=== PATIENT | male | born 1950 | race Caucasian/White ===

== ENCOUNTER 2018-04-26 10:15 | Inpatient (IN) | payer MEDICARE ==
[~2018-04-26] VITALS: Ht 190.5 cm; Wt 127.9 kg
[2018-04-26 10:25] VITALS: BP 142/85
[2018-04-26 11:17] LABS: APPEARANCE,URINE CLEAR; BILIRUBIN, URINE NEGATIVE (NEGATIVE); GLUCOSE, URINE (UA) NEGATIVE (NEGATIVE); KETONES,URINE NEGATIVE (NEGATIVE); LEUKOCYTE ESTERASE ,URINE 1+ (NEGATIVE); NITRITE,URINE NEGATIVE (NEGATIVE); PH,URINE 6.5 (4.5-8.0); PROTEIN,URINE NEGATIVE (NEGATIVE); UROBILINOGEN,URINE 4 MG/DL (0.0-1.0)
[2018-04-26 11:26] LABS: HEMATOCRIT 36.3 % (42.0-52.0); HEMOGLOBIN 12.4 G/DL (14.2-18.0); MEAN CORPUSCULAR VOLUME 99 FL (80-99); PLATELET COUNT 72 K/UL (150-450); RED BLOOD COUNT 3.68 M/UL (4.70-6.10); RED CELL DISTRIBUTION WIDTH 13.2 % (11.6-14.8); WHITE BLOOD COUNT 7.9 K/UL (4.8-10.8)
[2018-04-26 11:27] LABS: COLOR,URINE YELLOW
[2018-04-26 11:40] LABS: ANION GAP 11 mmol/L (5-15); BLOOD UREA NITROGEN 16 mg/dL (7-18); CALCIUM 8.8 MG/DL (8.5-10.1); CARBON DIOXIDE 23 MMOL/L (21-32); CHLORIDE 109 MMOL/L (98-107); CREATININE 0.8 MG/DL (0.55-1.30); POTASSIUM 3.2 MMOL/L (3.5-5.1); SODIUM 142 MMOL/L (136-145)
--- NOTE | 2018-04-26 11:41 | Diagnostic Imaging Report ---
Indication: Seizure Technique: Contiguous 5 mm thick transaxial imaging of the head obtained in a Siemens Sensation [address] scanner. Soft tissue and bone windows generated. Automatic Exposure Control was utilized. Total Dose length Product (DLP): 1608.[address] Dose Index Volume (CTDIvol): 70.38 mGy Comparison: none Findings: There is mild prominence of the ventricles, basal cisterns, and cerebral sulci consistent with atrophy. Mild, nonspecific, white matter hypoattenuation is noted throughout the brain consistent with chronic small vessel disease. There is no midline shift, edema, acute hemorrhage, mass effect, or abnormal extra-axial fluid collections. Bones and extra osseous soft tissues are unremarkable. Impression: No acute intracranial bleed, mass effect or edema. Mild atrophy of the brain. Nonspecific white matter hypoattenuation probably due to chronic small vessel disease. The CT scanner at [facility] is accredited by the [employer] and the scans are performed using dose optimization techniques as appropriate to a performed exam including Automatic Exposure control.
--- NOTE | 2018-04-26 11:43 | Diagnostic Imaging Report ---
Indication: Chest pain Comparison: None A single view chest radiograph was obtained. Findings: No definite infiltrate or pulmonary vascular congestion identified. The heart is enlarged. The aorta is mildly enlarged consistent with atherosclerotic vascular disease. The bones are osteopenic. Impression: No acute disease
[2018-04-26 11:52] LABS: ALANINE AMINOTRANSFERASE 25 U/L (12-78); ALBUMIN 2.8 G/DL (3.4-5.0); ALBUMIN/GLOBULIN RATIO 0.8 (1.0-2.7); ALKALINE PHOSPHATASE 215 U/L (46-116); ASPARTATE AMINO TRANSFERASE 100 U/L (15-37); BILIRUBIN,TOTAL 4.6 MG/DL (0.2-1.0)
[2018-04-26 11:53] LABS: BILIRUBIN,DIRECT 1.2 MG/DL (0.0-0.3)
[2018-04-26 12:23] LABS: CREATINE KINASE 389 U/L (26-308)
[2018-04-26 12:48] LABS: AMMONIA 60 umol/L (11-32)
[2018-04-26] MEDS ORDERED: NAPROXEN250 MG ORAL (12:59)
[2018-04-26] MEDS: Aspirin Baby 81mg ORAL ONE ×2 (13:45→15:15)
[2018-04-26] MEDS: Lactulose 20gm/30ml UDC ORAL ONE ×2 (13:45→15:15)
[2018-04-26] MEDS ORDERED: Nitroglycerin Subl 0.4mg tab SL PRN (13:45)
[2018-04-26] MEDS ORDERED: Metoclopramide 10mg/2ml Inj IVP PRN (13:45)
[2018-04-26] MEDS ORDERED: Mylanta II UD 30ml ORAL PRN (13:45)
[2018-04-26] MEDS ORDERED: Promethazine HCl 25 MG in NS 55 ML IV PRN (13:45)
[2018-04-26] MEDS ORDERED: Morphine Sulfate 2mg/ml Inj IVP PRN (13:45)
[2018-04-26] MEDS ORDERED: LORazepam Inj 2mg/ml 1ml IV PRN (13:45)
[2018-04-26] MEDS ORDERED: Promethazine HCl 12.5 MG in NS 55 ML IV PRN (13:45)
--- NOTE | 2018-04-26 14:02 | Emergency Room Report ---
History of Present Illness General Chief Complaint: Altered Mental Status Source: Patient, EMS Present Illness HPI 67M who is confused. The history is quite limited b/c the patient is truly confused and the metal rivet machine operator with him says he only knows him for two days. That his /friends know him but not him. The patient and metal rivet machine operator agree that the patient flew here by himself from [place]. Pt. says he "is in remission from cancer" but he cannot be specific. States he does not take any meds and not supposed to be on meds. He was treated at [place]. The patient is having difficulty telling me details. He is awake, oriented x2 but poor details. 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 Review of Systems Constitutional: Reports: see HPI Eye: Reports: see HPI Respiratory: Reports: no symptoms Cardiovascular: Reports: no symptoms Gastrointestinal: Reports: no symptoms Genitourinary: Reports: frequency Musculoskeletal: Reports: no symptoms Skin: Reports: change in color Psychiatric: Reports: no symptoms Neurological: Reports: no symptoms All Other Systems: limited Physical Exam Vital Signs Date Time Temp Pulse Resp B/P (MAP) Pulse Ox O2 Delivery O2 Flow Rate FiO2 04/26/18 10:05 98.4 104 16 163/95 99 Room Air 98.4 Sp02 EP Interpretation: reviewed, normal General Appearance: normal inspection, well appearing, no apparent distress, alert, GCS 15, non-toxic Head: normocephalic, atraumatic Eyes: bilateral eye normal inspection, bilateral eye PERRL, bilateral eye EOMI , bilateral eye scleral icterus ENT: normal ENT inspection, hearing grossly normal, normal pharynx, no angioedema, normal voice, moist mucus membranes Neck: normal inspection, full range of motion, supple, no meningismus, no bony tend Respiratory: normal inspection, lungs clear, normal breath sounds, no rhonchi, no respiratory distress, no retraction, no accessory muscle use, no wheezing Cardiovascular #1: normal inspection, regular rate, rhythm, no edema Gastrointestinal: normal inspection, normal bowel sounds, non tender, soft, no mass, non-distended Musculoskeletal: normal range of motion, swelling, other - 4+ leg edema Neurologic: normal inspection, alert, responsive, motor strength/tone normal, abnormal gait, other - can have a coherent conversation but patient has to work hard to understand me and has word searching and cannot give details Psychiatric: normal inspection, judgement/insight normal, memory normal Suicide Risk Assessment: Suicidal Ideation: No Had intent to initiate attempt: No Pt's plan for suicide attempt: No Has means to complete attempt: No Skin: normal inspection, normal color, no rash, warm/dry Medical Decision Making Diagnostic Impression: Primary Impression: Hepatic encephalopathy Additional Impression: ACS (acute coronary syndrome) ER Course This patient appears to have been typical patient until very recently (1-3 days. ) He has great difficulty recalling things, has to work hard to understand/ discuss with me. He says he is in remission from cancer but cannot be specific. He denies needing/taking any meds. He has some ataxia, peripheral edema, jaundice. No ports. labs c/w hepatic encephalopathy also + troponin. no complaint of cp/sob/diaph aspirin ordered. not tachy no b-block ordered EKG nonacute, EKG Diagnostic Results EKG Time: 11:00 Rate: normal Rhythm: NSR ST Segments: no acute changes ASA given to the pt in ED: Yes Rhythm Strip Diag. Results Rhythm Strip Time: 14:00 EP Interpretation: yes Rate: 86 Rhythm: NSR Chest X-Ray Diagnostic Results Chest X-Ray Diagnostic Results : Chest X-Ray Ordered: Yes # of Views/Limited/Complete: 1 View Indication: Other Interpretation: no consolidation, no effusion, no pneumothorax, other - rotated CT/MRI/US Diagnostic Results CT/MRI/US Diagnostic Results : Imaging Test Ordered: ct head: no acute findings Last Vital Signs Date Time Temp Pulse Resp B/P (MAP) Pulse Ox O2 Delivery O2 Flow Rate FiO2 04/26/18 10:25 98.4 94 15 142/85 98 Room Air 98.4 Status: unchanged Disposition: ADMITTED INPATIENT Referrals: NOT CHOSEN JOSE LUIS/,REFERRING (PCP) Andrés Fuentes M.D. Apr 26, 2018 14:02
[2018-04-26 14:09] VITALS: BP 144/77
--- NOTE | 2018-04-26 14:32 | Consultation ---
History of Present Illness General Date patient seen: Apr 26, 2018 Chief Complaint: Altered Mental Status Present Illness HPI 67 year old male with hx of metastatic melanoma apparently receiving treatment at [facility] in [place], was brought for altered level of consciousness. He had elevated bilirubin and mild coagulopathy, was diagnosed to have hepatic encephalopathy and admitted for further treatment. Allergies: Coded Allergies: No Known Allergies (Unverified , 04/26/18) Medication History Scheduled Naproxen* (Naprosyn*), Unknown Dose ORAL TWICE A DAY, (Reported) Patient History Healthcare decision maker Resuscitation status Advanced Directive on File Past Medical/Surgical History Past Medical/Surgical History: (1) Metastatic melanoma (2) Liver disease Review of Systems All Other Systems: negative except mentioned in HPI Physical Exam General Appearance: WD/WN Lines, tubes and drains: peripheral HEENT: normocephalic, atraumatic Neck: non-tender, normal alignment Respiratory/Chest: chest wall non-tender, lungs clear Breasts: no masses Cardiovascular/Chest: normal peripheral pulses Abdomen: normal bowel sounds, non tender Genitourinary/Rectal: normal genital exam, normal rectal exam Extremities: normal range of motion Last 24 Hour Vital Signs Date Time Temp Pulse Resp B/P (MAP) Pulse Ox O2 Delivery O2 Flow Rate FiO2 04/26/18 14:27 98.4 88 16 144/77 98 Room Air 98.4 04/26/18 14:09 98.4 88 16 144/77 98 Room Air 98.4 04/26/18 10:25 98.4 94 15 142/85 98 Room Air 98.4 04/26/18 10:05 98.4 104 16 163/95 99 Room Air 98.4 Laboratory Tests Test 04/26/18 10:50 White Blood Count 7.9 K/UL (4.8-10.8) Red Blood Count 3.68 M/UL (4.70-6.10) L Hemoglobin 12.4 G/DL (14.2-18.0) L Hematocrit 36.3 % (42.0-52.0) L Mean Corpuscular Volume 99 FL (80-99) Mean Corpuscular Hemoglobin 33.8 PG (27.0-31.0) H Mean Corpuscular Hemoglobin Concent 34.3 G/DL (32.0-36.0) Red Cell Distribution Width 13.2 % (11.6-14.8) Platelet Count 72 K/UL (150-450) L Mean Platelet Volume 8.8 FL (6.5-10.1) Neutrophils (%) (Auto) % (45.0-75.0) Lymphocytes (%) (Auto) % (20.0-45.0) Monocytes (%) (Auto) % (1.0-10.0) Eosinophils (%) (Auto) % (0.0-3.0) Basophils (%) (Auto) % (0.0-2.0) Differential Total Cells Counted 100 Neutrophils % (Manual) 81 % (45-75) H Lymphocytes % (Manual) 9 % (20-45) L Monocytes % (Manual) 8 % (1-10) Eosinophils % (Manual) 2 % (0-3) Basophils % (Manual) 0 % (0-2) Band Neutrophils 0 % (0-8) Platelet Estimate Decreased L Platelet Morphology Normal Red Blood Cell Morphology Normal Urine Color Yellow Urine Appearance Clear Urine pH 6.5 (4.5-8.0) Urine Specific [place] 1.010 (1.005-1.035) Urine Protein Negative (NEGATIVE) Urine Glucose (UA) Negative (NEGATIVE) Urine Ketones Negative (NEGATIVE) Urine Blood Negative (NEGATIVE) Urine Nitrite Negative (NEGATIVE) Urine Bilirubin Negative (NEGATIVE) Urine Urobilinogen 4 MG/DL (0.0-1.0) H Urine Leukocyte Esterase 1+ (NEGATIVE) H Urine RBC 0-2 /HPF (0 - 0) H Urine WBC 2-4 /HPF (0 - 0) Urine Squamous Epithelial Cells Occasional /LPF Urine Bacteria Occasional /HPF (NONE) Sodium Level 142 MMOL/L (136-145) Potassium Level 3.2 MMOL/L (3.5-5.1) L Chloride Level 109 MMOL/L (98-107) H Carbon Dioxide Level 23 MMOL/L (21-32) Anion Gap 11 mmol/L (5-15) Blood Urea Nitrogen 16 mg/dL (7-18) Creatinine 0.8 MG/DL (0.55-1.30) Estimat Glomerular Filtration Rate > 60 mL/min (>60) Glucose Level 108 MG/DL (74-106) H Calcium Level 8.8 MG/DL (8.5-10.1) Total Bilirubin 4.6 MG/DL (0.2-1.0) H Direct Bilirubin 1.2 MG/DL (0.0-0.3) H Aspartate Amino Transf (AST/SGOT) 100 U/L (15-37) H Alanine Aminotransferase (ALT/SGPT) 25 U/L (12-78) Alkaline Phosphatase 215 U/L (46-116) H Ammonia 60 umol/L (11-32) H Total Creatine Kinase 389 U/L (26-308) H Troponin I 0.553 ng/mL (0.000-0.056) Total Protein 6.4 G/DL (6.4-8.2) Albumin 2.8 G/DL (3.4-5.0) L Globulin 3.6 g/dL Albumin/Globulin Ratio 0.8 (1.0-2.7) L Height (Feet): 5 Height (Inches): 8.00 Weight (Pounds): 160 Medications Current Medications Medications (Trade) Dose Ordered Sig/Elsy Route PRN Reason Start Time Stop Time Status Last Admin Dose Admin Acetaminophen (Tylenol) 650 mg Q4H PRN ORAL T>100.5 04/26/18 13:45 05/26/18 13:44 Al Hydroxide/Mg Hydroxide (Mylanta II) 30 ml Q6H PRN ORAL dyspepsia 04/26/18 13:45 05/26/18 13:44 Dextrose (Dextrose 50%) 25 ml PRN IV hypoglycemia 04/26/18 14:00 05/26/18 13:59 Dextrose (Dextrose 50%) 50 ml PRN IV hypoglycemia 04/26/18 14:00 05/26/18 13:59 Dextrose/Sodium Chloride 1,000 ml @ 75 mls/hr [id number] IV 04/26/18 13:45 05/26/18 13:44 Diphenhydramine HCl (Benadryl) 25 mg Q6H PRN ORAL Itching/Pruritis 04/26/18 13:45 05/26/18 13:44 Heparin Sodium (Porcine) (Heparin 5000 units/ml) 5,000 units EVERY 12 HOURS SUBQ 04/26/18 21:00 05/26/18 20:59 Lorazepam (Ativan 2mg/ml 1ml) 1 mg Q4H PRN IV agitation 04/26/18 13:45 05/03/18 13:44 Metoclopramide HCl (Reglan) 10 mg Q6H PRN IVP servere nausea 04/26/18 13:45 05/26/18 13:44 Morphine Sulfate (Morphine Sulfate) 2 mg Q4H PRN IVP Severe Pain (Pain Scale 7-10) 04/26/18 13:45 05/03/18 13:44 Nitroglycerin (Ntg) 0.4 mg Q5M X 3 DOSES PRN SL Prn Chest Pain 04/26/18 13:45 05/26/18 13:44 Ondansetron HCl (Zofran) 4 mg Q6H PRN IVP Nausea & Vomiting 04/26/18 13:45 05/26/18 13:44 Pantoprazole (Protonix) 40 mg DAILY IV 04/27/18 09:00 05/27/18 08:59 Polyethylene Glycol (Miralax) 17 gm HSPRN PRN ORAL Constipation 04/26/18 21:00 05/26/18 20:59 Temazepam (Restoril) 15 mg HSPRN PRN ORAL Insomnia 04/26/18 21:00 05/03/18 20:59 Assessment/Plan Problem List: (1) Hepatic encephalopathy ICD Codes: K72.90 - Hepatic failure, unspecified without coma SNOMED: 94996956 (2) Altered mental status ICD Codes: R41.82 - Altered mental status, unspecified SNOMED: 489331142 (3) Metastatic melanoma ICD Codes: C79.9 - Secondary malignant neoplasm of unspecified site SNOMED: 024919506 (4) Liver disease ICD Codes: K76.9 - Liver disease, unspecified SNOMED: 390106503 (5) Hyperbilirubinemia ICD Codes: E80.6 - Other disorders of bilirubin metabolism SNOMED: 19749278 Assessment/Plan iv fluids GI evaluation paracentesis try to obtain medical records from [facility] f/u ammonia levels check electrolytes. Mira Coates MD Apr 26, 2018 14:32
[2018-04-26] MEDS: D5 1/2NS 1,000 ML IV SCH (15:15)
--- NOTE | 2018-04-26 15:53 | GI Initial Consult Note ---
History of Present Illness General Date patient seen: Apr 26, 2018 Time patient seen: 15:46 Reason for Hospitalization: Altered Mental Status Referring physician: VISHAL NULL Reason for Consultation: ABNORMAL LFTs Present Illness HPI 67M who is confused. The history is quite limited b/c the patient is truly confused and the lead burner apprentice with him says he only knows him for two days. That his /friends know him but not him. The patient and lead burner apprentice agree that the patient flew here by himself from [place]. Pt. says he "is in remission from cancer" but he cannot be specific. States he does not take any meds and not supposed to be on meds. He was treated at [place]. The patient is having difficulty telling me details. He is awake, oriented x2 but poor details. No old EMR. GI consulted for abnormal LFTs. ROS limited, AMS. Pt seen, awake alert NAD with no active s/sx of N/V/D. Answers to questions are very vague. Unknown history of endoscopy / colonoscopy. Labs reviewed show mild anemia, elevated troponin levels, abnormal LFTs and hypoalbuminemia. 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 Review of Systems All Other Systems: limited Physical Exam Vital Signs Date Time Temp Pulse Resp B/P (MAP) Pulse Ox O2 Delivery O2 Flow Rate FiO2 04/26/18 10:05 98.4 104 16 163/95 99 Room Air 98.4 Sp02 EP Interpretation: reviewed, normal Labs Laboratory Tests Test 04/26/18 10:50 White Blood Count 7.9 K/UL (4.8-10.8) Red Blood Count 3.68 M/UL (4.70-6.10) L Hemoglobin 12.4 G/DL (14.2-18.0) L Hematocrit 36.3 % (42.0-52.0) L Mean Corpuscular Volume 99 FL (80-99) Mean Corpuscular Hemoglobin 33.8 PG (27.0-31.0) H Mean Corpuscular Hemoglobin Concent 34.3 G/DL (32.0-36.0) Red Cell Distribution Width 13.2 % (11.6-14.8) Platelet Count 72 K/UL (150-450) L Mean Platelet Volume 8.8 FL (6.5-10.1) Neutrophils (%) (Auto) % (45.0-75.0) Lymphocytes (%) (Auto) % (20.0-45.0) Monocytes (%) (Auto) % (1.0-10.0) Eosinophils (%) (Auto) % (0.0-3.0) Basophils (%) (Auto) % (0.0-2.0) Differential Total Cells Counted 100 Neutrophils % (Manual) 81 % (45-75) H Lymphocytes % (Manual) 9 % (20-45) L Monocytes % (Manual) 8 % (1-10) Eosinophils % (Manual) 2 % (0-3) Basophils % (Manual) 0 % (0-2) Band Neutrophils 0 % (0-8) Platelet Estimate Decreased L Platelet Morphology Normal Red Blood Cell Morphology Normal Urine Color Yellow Urine Appearance Clear Urine pH 6.5 (4.5-8.0) Urine Specific [place] 1.010 (1.005-1.035) Urine Protein Negative (NEGATIVE) Urine Glucose (UA) Negative (NEGATIVE) Urine Ketones Negative (NEGATIVE) Urine Blood Negative (NEGATIVE) Urine Nitrite Negative (NEGATIVE) Urine Bilirubin Negative (NEGATIVE) Urine Urobilinogen 4 MG/DL (0.0-1.0) H Urine Leukocyte Esterase 1+ (NEGATIVE) H Urine RBC 0-2 /HPF (0 - 0) H Urine WBC 2-4 /HPF (0 - 0) Urine Squamous Epithelial Cells Occasional /LPF Urine Bacteria Occasional /HPF (NONE) Sodium Level 142 MMOL/L (136-145) Potassium Level 3.2 MMOL/L (3.5-5.1) L Chloride Level 109 MMOL/L (98-107) H Carbon Dioxide Level 23 MMOL/L (21-32) Anion Gap 11 mmol/L (5-15) Blood Urea Nitrogen 16 mg/dL (7-18) Creatinine 0.8 MG/DL (0.55-1.30) Estimat Glomerular Filtration Rate > 60 mL/min (>60) Glucose Level 108 MG/DL (74-106) H Calcium Level 8.8 MG/DL (8.5-10.1) Total Bilirubin 4.6 MG/DL (0.2-1.0) H Direct Bilirubin 1.2 MG/DL (0.0-0.3) H Aspartate Amino Transf (AST/SGOT) 100 U/L (15-37) H Alanine Aminotransferase (ALT/SGPT) 25 U/L (12-78) Alkaline Phosphatase 215 U/L (46-116) H Ammonia 60 umol/L (11-32) H Total Creatine Kinase 389 U/L (26-308) H Troponin I 0.553 ng/mL (0.000-0.056) Total Protein 6.4 G/DL (6.4-8.2) Albumin 2.8 G/DL (3.4-5.0) L Globulin 3.6 g/dL Albumin/Globulin Ratio 0.8 (1.0-2.7) L General Appearance: well appearing, no apparent distress, alert, obese Head: normocephalic EENT: PERRL/EOMI, normal ENT inspection Neck: supple Respiratory: normal breath sounds, no respiratory distress Cardiovascular: normal rate Gastrointestinal: normal inspection, non tender, soft, normal bowel sounds, non -distended Rectal: deferred Genitourinary: deferred Musculoskeletal: normal inspection, back normal Neurologic: alert, responsive Skin: normal inspection, normal color, no rash, warm/dry, palpation normal, well hydrated Lymphatic: normal inspection, no adenopathy Current Medications Current Medications Medications (Trade) Dose Ordered Sig/Elsy Route PRN Reason Start Time Stop Time Status Last Admin Dose Admin Acetaminophen (Tylenol) 650 mg Q4H PRN ORAL T>100.5 04/26/18 13:45 05/26/18 13:44 Al Hydroxide/Mg Hydroxide (Mylanta II) 30 ml Q6H PRN ORAL dyspepsia 04/26/18 13:45 05/26/18 13:44 Dextrose (Dextrose 50%) 25 ml PRN IV hypoglycemia 04/26/18 14:00 05/26/18 13:59 Dextrose (Dextrose 50%) 50 ml PRN IV hypoglycemia 04/26/18 14:00 05/26/18 13:59 Dextrose/Sodium Chloride 1,000 ml @ 75 mls/hr [id number] IV 04/26/18 13:45 05/26/18 13:44 04/26/18 15:15 Diphenhydramine HCl (Benadryl) 25 mg Q6H PRN ORAL Itching/Pruritis 04/26/18 13:45 05/26/18 13:44 Heparin Sodium (Porcine) (Heparin 5000 units/ml) 5,000 units EVERY 12 HOURS SUBQ 04/26/18 21:00 05/26/18 20:59 Lorazepam (Ativan 2mg/ml 1ml) 1 mg Q4H PRN IV agitation 04/26/18 13:45 05/03/18 13:44 Metoclopramide HCl (Reglan) 10 mg Q6H PRN IVP servere nausea 04/26/18 13:45 05/26/18 13:44 Morphine Sulfate (Morphine Sulfate) 2 mg Q4H PRN IVP Severe Pain (Pain Scale 7-10) 04/26/18 13:45 05/03/18 13:44 Nitroglycerin (Ntg) 0.4 mg Q5M X 3 DOSES PRN SL Prn Chest Pain 04/26/18 13:45 05/26/18 13:44 Ondansetron HCl (Zofran) 4 mg Q6H PRN IVP Nausea & Vomiting 04/26/18 13:45 05/26/18 13:44 Pantoprazole (Protonix) 40 mg DAILY IV 04/27/18 09:00 05/27/18 08:59 Polyethylene Glycol (Miralax) 17 gm HSPRN PRN ORAL Constipation 04/26/18 21:00 05/26/18 20:59 Temazepam (Restoril) 15 mg HSPRN PRN ORAL Insomnia 04/26/18 21:00 05/03/18 20:59 GI: Plan Problems: (1) Liver disease (2) Hyperbilirubinemia (3) Hepatic encephalopathy (4) Altered mental status Plan defer GI procedures at this time given elevated troponin levels abdominal U/S anemia work up OB stool r/o GI bleed monitor H&H, prn transfusions bowel regime ppi start lactulose low dose + Xifaxan fu labs, AFP, NH3, hep panel Discussed with Dr. Pena. Thank you for this patient referral, we will follow. The patient was seen and examined at bedside and all new and available data was reviewed in the patients chart. I agree with the above findings, impression and plan. (Patient seen earlier today. Signature stamp does not reflect patient encounter time.). - MD Lucila ParraHavasu Regional Medical CenterLuhMiguel BUSINESS PERFORMANCE ADVISOR Apr 26, 2018 15:53
[2018-04-26 16:12] VITALS: BP 143/85
[2018-04-26] MEDS: Lactulose 10gm/15ml UDC ORAL SCH ×2 (17:27→17:28)
--- NOTE | 2018-04-26 18:18 | History & Physical ---
History and Physical History & Physicial Dictated for [facility]. [id number]. Carlos Alberto Madrigal MD Apr 26, 2018 18:18
[2018-04-26 20:00] VITALS: BP 140/87
[2018-04-26] MEDS ORDERED: Miralax 17gm pkt ORAL PRN (21:00)
[2018-04-26] MEDS: Heparin 5000 units/ml inj SUBQ SCH (21:00)
--- NOTE | 2018-04-26 23:30 | History and Physical Report ---
DATE OF ADMISSION: 04/26/2018 CHIEF COMPLAINT: The patient is a 67-year-old white male, who presents with a chief complaint of altered mental status. HISTORY OF PRESENT ILLNESS: The patient himself is unable to contribute much to the history and physical. The patient seems somewhat confused. Apparently, the patient traveled here from [place]. The patient has been undergoing chemotherapy for "cancer" there. The patient only states he has metastatic disease to liver. The patient presented to [place] emergency room. The patient is admitted for altered mental status. PAST MEDICAL HISTORY: Significant for, 1. Metastatic liver cancer as above. 2. 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 PAST SURGICAL HISTORY: Significant for prosthetic left eye. CURRENT MEDICATIONS: Naproxen 250 mg p.o. twice daily. ALLERGIES: No known drug allergies. SOCIAL HISTORY: The patient was accompanied by a locomotive firer/fireman to the emergency room. The patient denies tobacco or alcohol use. REVIEW OF SYSTEMS: Unable to assess secondary to the patient's mental status. PHYSICAL EXAMINATION: VITAL SIGNS: Temperature 98.4, respirations 16, pulse 88, and blood pressure 144/77. GENERAL: The patient is a well-developed and well-nourished white male, in no apparent distress. HEENT: Eyes, pupils are equal and responsive to light and accommodation. Extraocular movements are intact. NECK: Supple without lymphadenopathy. CHEST: Clear to auscultation bilaterally without wheezes or rales. CARDIOVASCULAR: Regular rhythm and rate. S1 and S2 are normal without murmurs, rubs, or gallops. ABDOMEN: Soft, nontender, and nondistended. Positive bowel sounds. No evidence of hepatosplenomegaly. Currently, no rebound or guarding noted. EXTREMITIES: Negative for clubbing, cyanosis, or edema. RECTAL/GENITAL: Refused. NEUROLOGIC: The patient is alert and oriented to himself only. Cranial nerves II through XII are grossly intact without focal deficits. Motor strength is 5/5 bilaterally. Deep tendon reflexes are 2+ plantar. LABORATORY STUDIES: WBC 7.9, hemoglobin 12.4, hematocrit 36.3, and platelets decreased to 72,000. Sodium 142, potassium 3.2, chloride 109, CO2 23, BUN 16, creatinine 0.8, and glucose 108. Troponin 0.553. Alkaline phosphatase 215. Total CK 389. A CT scan of the brain was reported as no acute disease. A chest x-ray was reported as no acute disease. ASSESSMENT: This is a 67-year-old white male. 1. Altered mental status. 2. Probable metastatic carcinoma to the liver. 3. Hypokalemia. 4. Thrombocytopenia. TREATMENT: 1. Altered mental status. Etiology is unknown. The patient may have an elevated ammonia level. Ammonia level is pending. A CT scan of the abdomen and pelvis is pending to rule out metastatic carcinoma. 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 2. Metastatic carcinoma of the liver. A Gastroenterology consultation has been obtained with Dr. Sanjeev Pena. An Oncology consultation has been obtained with Dr. Wagner. A CT scan of the abdomen and pelvis is pending. 3. Hypokalemia. The patient is receiving potassium supplementation. 4. Thrombocytopenia, probably secondary to liver disease. 5. History of melanoma. Carlos Alberto Madrigal M.D. DR: RADHA JOB#: [id number] CC:
[2018-04-27] VITALS: BP 119/65
--- NOTE | 2018-04-27 02:15 | History and Physical Report ---
DATE OF ADMISSION: 04/26/2018 CHIEF COMPLAINT: The patient is a 67-year-old white male, who presents with a chief complaint of altered mental status. HISTORY OF PRESENT ILLNESS: The patient himself is unable to contribute much to the history and physical. The patient seems somewhat confused. Apparently, the patient traveled here from [place]. The patient has been undergoing chemotherapy for "cancer" there. The patient only states he has metastatic disease to liver. The patient presented to [place] emergency room. The patient is admitted for altered mental status. PAST MEDICAL HISTORY: Significant for, 1. Metastatic liver cancer as above. 2. 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 PAST SURGICAL HISTORY: Significant for prosthetic left eye. CURRENT MEDICATIONS: Naproxen 250 mg p.o. twice daily. ALLERGIES: No known drug allergies. SOCIAL HISTORY: The patient was accompanied by a wharf hand to the emergency room. The patient denies tobacco or alcohol use. REVIEW OF SYSTEMS: Unable to assess secondary to the patient's mental status. PHYSICAL EXAMINATION: VITAL SIGNS: Temperature 98.4, respirations 16, pulse 88, and blood pressure 144/77. GENERAL: The patient is a well-developed and well-nourished white male, in no apparent distress. HEENT: Eyes, pupils are equal and responsive to light and accommodation. Extraocular movements are intact. NECK: Supple without lymphadenopathy. CHEST: Clear to auscultation bilaterally without wheezes or rales. CARDIOVASCULAR: Regular rhythm and rate. S1 and S2 are normal without murmurs, rubs, or gallops. ABDOMEN: Soft, nontender, and nondistended. Positive bowel sounds. No evidence of hepatosplenomegaly. Currently, no rebound or guarding noted. EXTREMITIES: Negative for clubbing, cyanosis, or edema. RECTAL/GENITAL: Refused. NEUROLOGIC: The patient is alert and oriented to himself only. Cranial nerves II through XII are grossly intact without focal deficits. Motor strength is 5/5 bilaterally. Deep tendon reflexes are 2+ plantar. LABORATORY STUDIES: WBC 7.9, hemoglobin 12.4, hematocrit 36.3, and platelets decreased to 72,000. Sodium 142, potassium 3.2, chloride 109, CO2 23, BUN 16, creatinine 0.8, and glucose 108. Troponin 0.553. Alkaline phosphatase 215. Total CK 389. A CT scan of the brain was reported as no acute disease. A chest x-ray was reported as no acute disease. ASSESSMENT: This is a 67-year-old white male. 1. Altered mental status. 2. Probable metastatic carcinoma to the liver. 3. Hypokalemia. 4. Thrombocytopenia. TREATMENT: 1. Altered mental status. Etiology is unknown. The patient may have an elevated ammonia level. Ammonia level is pending. A CT scan of the abdomen and pelvis is pending to rule out metastatic carcinoma. 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 2. Metastatic carcinoma of the liver. A Gastroenterology consultation has been obtained with Dr. Sanjeev Pena. An Oncology consultation has been obtained with Dr. Wagner. A CT scan of the abdomen and pelvis is pending. 3. Hypokalemia. The patient is receiving potassium supplementation. 4. Thrombocytopenia, probably secondary to liver disease. 5. History of melanoma. Carlos Alberto Madrigal M.D. DR: RADHA JOB#: [id number] CC:
[2018-04-27] MEDS: D5 1/2NS 1,000 ML IV SCH (02:17)
[2018-04-27 04:00] VITALS: BP 137/78
[2018-04-27 07:45] LABS: HEMATOCRIT 32.9 % (42.0-52.0); HEMOGLOBIN 11.2 G/DL (14.2-18.0); MEAN CORPUSCULAR VOLUME 100 FL (80-99); PLATELET COUNT 68 K/UL (150-450); WHITE BLOOD COUNT 5.6 K/UL (4.8-10.8)
[2018-04-27] MEDS: Heparin 5000 units/ml inj SUBQ SCH ×2 (07:52→20:40)
[2018-04-27 08:00] VITALS: BP 144/85
[2018-04-27 08:13] LABS: % IRON SATURATION 21 % (15-50); IRON 59 ug/dL (50-175); TOTAL IRON BINDING CAPACITY 278 ug/dL (250-450)
[2018-04-27 08:41] LABS: ALANINE AMINOTRANSFERASE 25 U/L (12-78); ALBUMIN 2.5 G/DL (3.4-5.0); ALBUMIN/GLOBULIN RATIO 0.8 (1.0-2.7); ALKALINE PHOSPHATASE 155 U/L (46-116); AMYLASE 37 U/L (25-115); ANION GAP 9 mmol/L (5-15); ASPARTATE AMINO TRANSFERASE 101 U/L (15-37); BILIRUBIN,TOTAL 5.1 MG/DL (0.2-1.0); BLOOD UREA NITROGEN 17 mg/dL (7-18); CALCIUM 8.4 MG/DL (8.5-10.1); CARBON DIOXIDE 26 MMOL/L (21-32); CHLORIDE 111 MMOL/L (98-107); CREATININE 0.8 MG/DL (0.55-1.30); FERRITIN 216 NG/ML (8-388); POTASSIUM 3.1 MMOL/L (3.5-5.1); SODIUM 146 MMOL/L (136-145)
[2018-04-27 08:51] LABS: INR 1.2 (0.9-1.1)
[2018-04-27] MEDS: Lactulose 10gm/15ml UDC ORAL SCH ×3 (08:55→18:00)
[2018-04-27] MEDS ORDERED: Pantoprazole Inj IV SCH (09:00)
--- NOTE | 2018-04-27 09:40 | Pulmonology Progress Note ---
Assessment/Plan Problems: (1) Hepatic encephalopathy (2) Altered mental status (3) Metastatic melanoma (4) Liver disease (5) Hyperbilirubinemia Assessment/Plan CT abdomen pending GI note appreciated iv fluids GI evaluation paracentesis try to obtain medical records from [facility] f/u ammonia levels check electrolytes. Subjective ROS Limited/Unobtainable: No Interval Events: no new complains, more awake Constitutional: Reports: no symptoms HEENT: Repors: no symptoms Respiratory: Reports: no symptoms Allergies: Coded Allergies: No Known Allergies (Unverified , 04/26/18) Objective Last 24 Hour Vital Signs Date Time Temp Pulse Resp B/P (MAP) Pulse Ox O2 Delivery O2 Flow Rate FiO2 04/27/18 08:00 98.0 94 18 144/85 (104) 98 98.0 73 04/27/18 04:00 98.1 73 18 137/78 (97) 96 98.1 73 04/27/18 04:00 73 04/27/18 00:00 98.3 77 19 119/65 (83) 96 98.3 77 04/27/18 00:00 75 04/26/18 21:00 Room Air 04/26/18 20:00 98.1 84 19 140/87 (104) 96 98.1 84 04/26/18 20:00 95 04/26/18 16:12 97.2 86 20 143/85 (104) 97 97.2 86 04/26/18 16:00 80 04/26/18 15:46 Room Air 04/26/18 14:27 98.4 88 16 144/77 98 Room Air 98.4 04/26/18 14:09 98.4 88 16 144/77 98 Room Air 98.4 04/26/18 12:00 80 04/26/18 10:25 98.4 94 15 142/85 98 Room Air 98.4 04/26/18 10:05 98.4 104 16 163/95 99 Room Air 98.4 Intake and Output 04/26/18 04/27/18 19:00 07:00 Intake Total 150 ml Output Total 400 ml 300 ml Balance -250 ml -300 ml Intake IV Total 150 ml Output Urine Total 400 ml 300 ml # Voids 1 General Appearance: WD/WN HEENT: normocephalic Respiratory/Chest: chest wall non-tender, lungs clear Cardiovascular: normal peripheral pulses, normal rate Abdomen: normal bowel sounds, no organomegaly Genitourinary: normal external genitalia Extremities: no cyanosis Skin: no rash Neurologic/Psychiatric: metrology technician II-XII grossly normal Lymphatic: no neck adenopathy Laboratory Tests 04/26/18 10:50: White Blood Count 7.9, Red Blood Count 3.68L, Hemoglobin 12.4L, Hematocrit 36.3L , Mean Corpuscular Volume 99, Mean Corpuscular Hemoglobin 33.8H, Mean Corpuscular Hemoglobin Concent 34.3, Red Cell Distribution Width 13.2, Platelet Count 72L, Mean Platelet Volume 8.8, Neutrophils (%) (Auto) , Lymphocytes (%) ( Auto) , Monocytes (%) (Auto) , Eosinophils (%) (Auto) , Basophils (%) (Auto) , Differential Total Cells Counted 100, Neutrophils % (Manual) 81H, Lymphocytes % (Manual) 9L, Monocytes % (Manual) 8, Eosinophils % (Manual) 2, Basophils % ( Manual) 0, Band Neutrophils 0, Platelet Estimate DecreasedL, Platelet Morphology Normal, Red Blood Cell Morphology Normal, Urine Color Yellow, Urine Appearance Clear, Urine pH 6.5, Urine Specific [place] 1.010, Urine Protein Negative, Urine Glucose (UA) Negative, Urine Ketones Negative, Urine Blood Negative, Urine Nitrite Negative, Urine Bilirubin Negative, Urine Urobilinogen 4H, Urine Leukocyte Esterase 1+H, Urine RBC 0-2H, Urine WBC 2-4, Urine Squamous Epithelial Cells Occasional, Urine Bacteria Occasional, Sodium Level 142, Potassium Level 3.2L, Chloride Level 109H, Carbon Dioxide Level 23, Anion Gap 11 , Blood Urea Nitrogen 16, Creatinine 0.8, Estimat Glomerular Filtration Rate > 60, Glucose Level 108H, Calcium Level 8.8, Total Bilirubin 4.6H, Direct Bilirubin 1.2H, Aspartate Amino Transf (AST/SGOT) 100H, Alanine Aminotransferase (ALT/SGPT) 25, Alkaline Phosphatase 215H, Ammonia 60H, Total Creatine Kinase 389H, Troponin I 0.553H, Total Protein 6.4, Albumin 2.8L, Globulin 3.6, Albumin/Globulin Ratio 0.8L, Alpha Fetoprotein [Pending] 04/27/18 06:00: White Blood Count 5.6, Red Blood Count 3.30L, Hemoglobin 11.2L, Hematocrit 32.9L , Mean Corpuscular Volume 100H, Mean Corpuscular Hemoglobin 34.0H, Mean Corpuscular Hemoglobin Concent 34.2, Red Cell Distribution Width 13.0, Platelet Count 68L, Mean Platelet Volume 8.1, Neutrophils (%) (Auto) , Lymphocytes (%) ( Auto) , Monocytes (%) (Auto) , Eosinophils (%) (Auto) , Basophils (%) (Auto) , Neutrophils % (Manual) [Pending], Lymphocytes % (Manual) [Pending], Platelet Estimate [Pending], Platelet Morphology [Pending], Sodium Level 146H, Potassium Level 3.1L, Chloride Level 111H, Carbon Dioxide Level 26, Anion Gap 9, Blood Urea Nitrogen 17, Creatinine 0.8, Estimat Glomerular Filtration Rate > 60, Glucose Level 74, Calcium Level 8.4L, Total Bilirubin 5.1H, Direct Bilirubin 1.0H, Aspartate Amino Transf (AST/SGOT) 101H, Alanine Aminotransferase (ALT/SGPT ) 25, Alkaline Phosphatase 155H, Total Protein 5.6L, Albumin 2.5L, Globulin 3.1 , Albumin/Globulin Ratio 0.8L, Reticulocyte Count [Pending], Prothrombin Time 12.7H, Prothromb Time International Ratio 1.2H, Activated Partial Thromboplast Time 28, Iron Level 59, Total Iron Binding Capacity 278, Percent Iron Saturation 21, Unsaturated Iron Binding 219, Ferritin 216, Gamma Glutamyl Transpeptidase [Pending], Amylase Level 37, Lipase 213, Carcinoembryonic Antigen [Pending], Vitamin B12 Level 804, Folate 14.1, Thyroid Stimulating Hormone (TSH) 1.821, Free Thyroxine 1.12 Current Medications Medications (Trade) Dose Ordered Sig/Elsy Route PRN Reason Start Time Stop Time Status Last Admin Dose Admin Al Hydroxide/Mg Hydroxide (Mylanta II) 30 ml Q6H PRN ORAL dyspepsia 04/26/18 13:45 05/26/18 13:44 Dextrose (Dextrose 50%) 25 ml PRN IV hypoglycemia 04/26/18 14:00 05/26/18 13:59 Dextrose (Dextrose 50%) 50 ml PRN IV hypoglycemia 04/26/18 14:00 05/26/18 13:59 Dextrose/Sodium Chloride 1,000 ml @ 75 mls/hr [id number] IV 04/26/18 13:45 05/26/18 13:44 04/27/18 02:17 Diphenhydramine HCl (Benadryl) 25 mg Q6H PRN ORAL Itching/Pruritis 04/26/18 13:45 05/26/18 13:44 Heparin Sodium (Porcine) (Heparin 5000 units/ml) 5,000 units EVERY 12 HOURS SUBQ 04/26/18 21:00 05/26/18 20:59 Lactulose (Cephulac) 10 gm THREE TIMES A DAY ORAL 04/26/18 18:00 05/26/18 17:59 Lorazepam (Ativan 2mg/ml 1ml) 1 mg Q4H PRN IV agitation 04/26/18 13:45 05/03/18 13:44 04/27/18 02:06 Metoclopramide HCl (Reglan) 10 mg Q6H PRN IVP servere nausea 04/26/18 13:45 05/26/18 13:44 Morphine Sulfate (Morphine Sulfate) 2 mg Q4H PRN IVP Severe Pain (Pain Scale 7-10) 04/26/18 13:45 05/03/18 13:44 Nitroglycerin (Ntg) 0.4 mg Q5M X 3 DOSES PRN SL Prn Chest Pain 04/26/18 13:45 05/26/18 13:44 Ondansetron HCl (Zofran) 4 mg Q6H PRN IVP Nausea & Vomiting 04/26/18 13:45 05/26/18 13:44 Pantoprazole (Protonix) 40 mg DAILY IV 04/27/18 09:00 05/27/18 08:59 04/27/18 08:55 Polyethylene Glycol (Miralax) 17 gm HSPRN PRN ORAL Constipation 04/26/18 21:00 05/26/18 20:59 Rifaximin (Xifaxan) 550 mg EVERY 12 HOURS ORAL 04/26/18 21:00 05/03/18 20:59 04/27/18 08:55 Temazepam (Restoril) 15 mg HSPRN PRN ORAL Insomnia 04/26/18 21:00 05/03/18 20:59 Mira Coates MD Apr 27, 2018 09:40
[2018-04-27] MEDS ORDERED: D5W w/KCl 20mEq 1,000 ML IV SCH ×2 (10:30→15:00)
--- NOTE | 2018-04-27 11:10 | Diagnostic Imaging Report ---
Indication: History of liver cancer. Elevated liver function tests Technique: Grayscale and duplex Doppler imaging of the abdomen performed. Comparison: None Findings: The liver is prominent measuring 19 cm and is abnormally increased in echogenicity consistent with fatty infiltration. The spleen is enlarged measuring 20 cm. The gallbladder demonstrates tumefactive sludge. Sonographic Saavedra's sign is negative. CBD is 3 mm.. The demonstrated part of the pancreas, aorta and IVC show no abnormalities although poorly seen likely due to body habitus. There is no biliary ductal dilatation identified. Doppler evaluation of the main portal vein shows patency. There is no ascites. No hydronephrosis seen. 5 cm cyst noted in the upper pole the right kidney. Impression: Hepatosplenomegaly with fatty liver. No definite gallstones. Suspected tumefactive sludge within the gallbladder. 5 cm cyst right kidney. Poor demonstration of the retroperitoneal structures.
[2018-04-27 12:00] VITALS: BP 145/78
--- NOTE | 2018-04-27 12:00 | GI Progress Note ---
Assessment/Plan Problems: (1) Metastatic melanoma ICD Codes: C79.9 - Secondary malignant neoplasm of unspecified site SNOMED: 191824411 (2) Liver disease ICD Codes: K76.9 - Liver disease, unspecified SNOMED: 633018937 (3) Hyperbilirubinemia ICD Codes: E80.6 - Other disorders of bilirubin metabolism SNOMED: 39071429 (4) Altered mental status ICD Codes: R41.82 - Altered mental status, unspecified SNOMED: 562798272 Qualifiers: Qualified Codes: R40.3 - Persistent vegetative state Status: stable Status Narrative Discussed with Dr. Pena. Assessment/Plan abdominal U/S reviewed, see full report >> - Hepatosplenomegaly with fatty liver. - No definite gallstones. Suspected tumefactive sludge within the gallbladder. - 5 cm cyst right kidney. - Poor demonstration of the retroperitoneal structures. defer GI procedures at this time given elevated troponin levels refusing lactulose, cont xifaxin OB stool r/o GI bleed monitor H&H, prn transfusions bowel regime ppi fu labs The patient was seen and examined at bedside and all new and available data was reviewed in the patients chart. I agree with the above findings, impression and plan. (Patient seen earlier today. Signature stamp does not reflect patient encounter time.). - Sanjeev Pena MD Subjective Gastrointestinal/Abdominal: Reports: no symptoms Subjective refusing lactulose Objective Last 24 Hour Vital Signs Date Time Temp Pulse Resp B/P (MAP) Pulse Ox O2 Delivery O2 Flow Rate FiO2 04/27/18 09:00 Room Air 04/27/18 08:00 98.0 94 18 144/85 (104) 98 98.0 73 04/27/18 04:00 98.1 73 18 137/78 (97) 96 98.1 73 04/27/18 04:00 73 04/27/18 00:00 98.3 77 19 119/65 (83) 96 98.3 77 04/27/18 00:00 75 04/26/18 21:00 Room Air 04/26/18 20:00 98.1 84 19 140/87 (104) 96 98.1 84 04/26/18 20:00 95 04/26/18 16:12 97.2 86 20 143/85 (104) 97 97.2 86 04/26/18 16:00 80 04/26/18 15:46 Room Air 04/26/18 14:27 98.4 88 16 144/77 98 Room Air 98.4 04/26/18 14:09 98.4 88 16 144/77 98 Room Air 98.4 04/26/18 12:00 80 Intake and Output 04/26/18 04/27/18 19:00 07:00 Intake Total 150 ml Output Total 400 ml 300 ml Balance -250 ml -300 ml Intake IV Total 150 ml Output Urine Total 400 ml 300 ml # Voids 1 Laboratory Tests Test 04/27/18 06:00 White Blood Count 5.6 K/UL (4.8-10.8) Red Blood Count 3.30 M/UL (4.70-6.10) L Hemoglobin 11.2 G/DL (14.2-18.0) L Hematocrit 32.9 % (42.0-52.0) L Mean Corpuscular Volume 100 FL (80-99) H Mean Corpuscular Hemoglobin 34.0 PG (27.0-31.0) H Mean Corpuscular Hemoglobin Concent 34.2 G/DL (32.0-36.0) Red Cell Distribution Width 13.0 % (11.6-14.8) Platelet Count 68 K/UL (150-450) L Mean Platelet Volume 8.1 FL (6.5-10.1) Neutrophils (%) (Auto) % (45.0-75.0) Lymphocytes (%) (Auto) % (20.0-45.0) Monocytes (%) (Auto) % (1.0-10.0) Eosinophils (%) (Auto) % (0.0-3.0) Basophils (%) (Auto) % (0.0-2.0) Differential Total Cells Counted 100 Neutrophils % (Manual) 70 % (45-75) Lymphocytes % (Manual) 20 % (20-45) Monocytes % (Manual) 7 % (1-10) Eosinophils % (Manual) 3 % (0-3) Basophils % (Manual) 0 % (0-2) Band Neutrophils 0 % (0-8) Platelet Estimate Decreased L Platelet Morphology Normal Anisocytosis 1+ Macrocytosis 1+ Reticulocyte Count Pending Prothrombin Time 12.7 SEC (9.30-11.50) H Prothromb Time International Ratio 1.2 (0.9-1.1) H Activated Partial Thromboplast Time 28 SEC (23-33) Sodium Level 146 MMOL/L (136-145) H Potassium Level 3.1 MMOL/L (3.5-5.1) L Chloride Level 111 MMOL/L (98-107) H Carbon Dioxide Level 26 MMOL/L (21-32) Anion Gap 9 mmol/L (5-15) Blood Urea Nitrogen 17 mg/dL (7-18) Creatinine 0.8 MG/DL (0.55-1.30) Estimat Glomerular Filtration Rate > 60 mL/min (>60) Glucose Level 74 MG/DL (74-106) Calcium Level 8.4 MG/DL (8.5-10.1) L Iron Level 59 ug/dL (50-175) Total Iron Binding Capacity 278 ug/dL (250-450) Percent Iron Saturation 21 % (15-50) Unsaturated Iron Binding 219 ug/dL (112-346) Ferritin 216 NG/ML (8-388) Total Bilirubin 5.1 MG/DL (0.2-1.0) H Direct Bilirubin 1.0 MG/DL (0.0-0.3) H Gamma Glutamyl Transpeptidase 28 U/L (5-85) Aspartate Amino Transf (AST/SGOT) 101 U/L (15-37) H Alanine Aminotransferase (ALT/SGPT) 25 U/L (12-78) Alkaline Phosphatase 155 U/L (46-116) H Total Protein 5.6 G/DL (6.4-8.2) L Albumin 2.5 G/DL (3.4-5.0) L Globulin 3.1 g/dL Albumin/Globulin Ratio 0.8 (1.0-2.7) L Amylase Level 37 U/L (25-115) Lipase 213 U/L (73-393) Carcinoembryonic Antigen Pending Vitamin B12 Level 804 PG/ML (193-986) Folate 14.1 NG/ML (8.6-58.9) Thyroid Stimulating Hormone (TSH) 1.821 uiU/mL (0.358-3.740) Free Thyroxine 1.12 NG/DL (0.76-1.46) Height (Feet): 6 Height (Inches): 3.00 Weight (Pounds): 284 General Appearance: WD/WN, no apparent distress, alert, obese Cardiovascular: normal rate Respiratory/Chest: normal breath sounds, no respiratory distress Abdominal Exam: normal bowel sounds, non tender, soft Extremities: normal range of motion, non-tender Lali Gaytan NP Apr 27, 2018 12:00
--- NOTE | 2018-04-27 13:20 | Consultation ---
History of Present Illness General Date patient seen: Apr 27, 2018 Chief Complaint: Altered Mental Status Referring physician: VISHAL NULL Reason for Consultation: ABNORMAL LFTs Present Illness HPI 67-year-old white male, who presents with a chief complaint of altered mental status Allergies: Coded Allergies: No Known Allergies (Unverified , 04/26/18) Medication History Scheduled Naproxen* (Naprosyn*), Unknown Dose ORAL TWICE A DAY, (Reported) Patient History Limited by: medical condition History Provided By: Patient, Medical Record, PMD Healthcare decision maker Resuscitation status Full Code Advanced Directive on File Past Medical/Surgical History Past Medical/Surgical History: (1) Hepatic encephalopathy (2) ACS (acute coronary syndrome) (3) ACS (acute coronary syndrome) (4) Hyperbilirubinemia (5) Liver disease (6) Metastatic melanoma (7) Altered mental status Review of Systems Psychiatric: Reports: prior hx, anxiety, depressed feelings Physical Exam General Appearance: no apparent distress, alert, agitated Last 24 Hour Vital Signs Date Time Temp Pulse Resp B/P (MAP) Pulse Ox O2 Delivery O2 Flow Rate FiO2 04/27/18 12:00 97.7 76 17 145/78 (100) 98 97.7 73 04/27/18 09:00 Room Air 04/27/18 08:00 98.0 94 18 144/85 (104) 98 98.0 73 04/27/18 08:00 81 04/27/18 04:00 98.1 73 18 137/78 (97) 96 98.1 73 04/27/18 04:00 73 04/27/18 00:00 98.3 77 19 119/65 (83) 96 98.3 77 04/27/18 00:00 75 04/26/18 21:00 Room Air 04/26/18 20:00 98.1 84 19 140/87 (104) 96 98.1 84 04/26/18 20:00 95 04/26/18 16:12 97.2 86 20 143/85 (104) 97 97.2 86 04/26/18 16:00 80 04/26/18 15:46 Room Air 04/26/18 14:27 98.4 88 16 144/77 98 Room Air 98.4 04/26/18 14:09 98.4 88 16 144/77 98 Room Air 98.4 Intake and Output 04/26/18 04/27/18 19:00 07:00 Intake Total 150 ml Output Total 400 ml 300 ml Balance -250 ml -300 ml Intake IV Total 150 ml Output Urine Total 400 ml 300 ml # Voids 1 Laboratory Tests Test 04/27/18 06:00 04/27/18 12:00 White Blood Count 5.6 K/UL (4.8-10.8) Red Blood Count 3.30 M/UL (4.70-6.10) L Hemoglobin 11.2 G/DL (14.2-18.0) L Hematocrit 32.9 % (42.0-52.0) L Mean Corpuscular Volume 100 FL (80-99) H Mean Corpuscular Hemoglobin 34.0 PG (27.0-31.0) H Mean Corpuscular Hemoglobin Concent 34.2 G/DL (32.0-36.0) Red Cell Distribution Width 13.0 % (11.6-14.8) Platelet Count 68 K/UL (150-450) L Mean Platelet Volume 8.1 FL (6.5-10.1) Neutrophils (%) (Auto) % (45.0-75.0) Lymphocytes (%) (Auto) % (20.0-45.0) Monocytes (%) (Auto) % (1.0-10.0) Eosinophils (%) (Auto) % (0.0-3.0) Basophils (%) (Auto) % (0.0-2.0) Differential Total Cells Counted 100 Neutrophils % (Manual) 70 % (45-75) Lymphocytes % (Manual) 20 % (20-45) Monocytes % (Manual) 7 % (1-10) Eosinophils % (Manual) 3 % (0-3) Basophils % (Manual) 0 % (0-2) Band Neutrophils 0 % (0-8) Platelet Estimate Decreased L Platelet Morphology Normal Anisocytosis 1+ Macrocytosis 1+ Reticulocyte Count Pending Prothrombin Time 12.7 SEC (9.30-11.50) H Prothromb Time International Ratio 1.2 (0.9-1.1) H Activated Partial Thromboplast Time 28 SEC (23-33) Sodium Level 146 MMOL/L (136-145) H Potassium Level 3.1 MMOL/L (3.5-5.1) L Chloride Level 111 MMOL/L (98-107) H Carbon Dioxide Level 26 MMOL/L (21-32) Anion Gap 9 mmol/L (5-15) Blood Urea Nitrogen 17 mg/dL (7-18) Creatinine 0.8 MG/DL (0.55-1.30) Estimat Glomerular Filtration Rate > 60 mL/min (>60) Glucose Level 74 MG/DL (74-106) Calcium Level 8.4 MG/DL (8.5-10.1) L Iron Level 59 ug/dL (50-175) Total Iron Binding Capacity 278 ug/dL (250-450) Percent Iron Saturation 21 % (15-50) Unsaturated Iron Binding 219 ug/dL (112-346) Ferritin 216 NG/ML (8-388) Total Bilirubin 5.1 MG/DL (0.2-1.0) H Direct Bilirubin 1.0 MG/DL (0.0-0.3) H Gamma Glutamyl Transpeptidase 28 U/L (5-85) Aspartate Amino Transf (AST/SGOT) 101 U/L (15-37) H Alanine Aminotransferase (ALT/SGPT) 25 U/L (12-78) Alkaline Phosphatase 155 U/L (46-116) H Total Protein 5.6 G/DL (6.4-8.2) L Albumin 2.5 G/DL (3.4-5.0) L Globulin 3.1 g/dL Albumin/Globulin Ratio 0.8 (1.0-2.7) L Amylase Level 37 U/L (25-115) Lipase 213 U/L (73-393) Carcinoembryonic Antigen Pending Vitamin B12 Level 804 PG/ML (193-986) Folate 14.1 NG/ML (8.6-58.9) Thyroid Stimulating Hormone (TSH) 1.821 uiU/mL (0.358-3.740) Free Thyroxine 1.12 NG/DL (0.76-1.46) Ammonia 70 umol/L (11-32) H Height (Feet): 6 Height (Inches): 3.00 Weight (Pounds): 284 Medications Current Medications Medications (Trade) Dose Ordered Sig/Elsy Route PRN Reason Start Time Stop Time Status Last Admin Dose Admin Al Hydroxide/Mg Hydroxide (Mylanta II) 30 ml Q6H PRN ORAL dyspepsia 04/26/18 13:45 05/26/18 13:44 Dextrose (Dextrose 50%) 25 ml PRN IV hypoglycemia 04/26/18 14:00 05/26/18 13:59 Dextrose (Dextrose 50%) 50 ml PRN IV hypoglycemia 04/26/18 14:00 05/26/18 13:59 Dextrose/ Electrolytes 1,000 ml @ 100 mls/hr Q10H IV 04/27/18 10:30 05/27/18 10:29 04/27/18 12:30 Diphenhydramine HCl (Benadryl) 25 mg Q6H PRN ORAL Itching/Pruritis 04/26/18 13:45 05/26/18 13:44 Heparin Sodium (Porcine) (Heparin 5000 units/ml) 5,000 units EVERY 12 HOURS SUBQ 04/26/18 21:00 05/26/18 20:59 Lactulose (Cephulac) 10 gm THREE TIMES A DAY ORAL 04/26/18 18:00 05/26/18 17:59 Lorazepam (Ativan 2mg/ml 1ml) 1 mg Q4H PRN IV agitation 04/26/18 13:45 05/03/18 13:44 04/27/18 02:06 Metoclopramide HCl (Reglan) 10 mg Q6H PRN IVP servere nausea 04/26/18 13:45 05/26/18 13:44 Morphine Sulfate (Morphine Sulfate) 2 mg Q4H PRN IVP Severe Pain (Pain Scale 7-10) 04/26/18 13:45 05/03/18 13:44 Nitroglycerin (Ntg) 0.4 mg Q5M X 3 DOSES PRN SL Prn Chest Pain 04/26/18 13:45 05/26/18 13:44 Ondansetron HCl (Zofran) 4 mg Q6H PRN IVP Nausea & Vomiting 04/26/18 13:45 05/26/18 13:44 Pantoprazole (Protonix) 40 mg DAILY IV 04/27/18 09:00 05/27/18 08:59 04/27/18 08:55 Polyethylene Glycol (Miralax) 17 gm HSPRN PRN ORAL Constipation 04/26/18 21:00 05/26/18 20:59 Rifaximin (Xifaxan) 550 mg EVERY 12 HOURS ORAL 04/26/18 21:00 05/03/18 20:59 04/27/18 08:55 Temazepam (Restoril) 15 mg HSPRN PRN ORAL Insomnia 04/26/18 21:00 05/03/18 20:59 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
[2018-04-27] MEDS ORDERED: Metoclopramide 10mg/2ml Inj IVP PRN (13:45)
[2018-04-27] MEDS ORDERED: Mylanta II UD 30ml ORAL PRN (13:45)
[2018-04-27] MEDS ORDERED: Nitroglycerin Subl 0.4mg tab SL PRN (13:45)
[2018-04-27] MEDS ORDERED: Morphine Sulfate 2mg/ml Inj IVP PRN (13:45)
--- NOTE | 2018-04-27 14:30 | Diagnostic Imaging Report ---
Indication: History of cancer. Details of the cancer unknown. Patient states he is undergoing treatment with chemotherapy in [place]. Patient presents with altered mental status, chest and abdominal pain. Technique: Continuous helical transaxial imaging of the chest, abdomen and pelvis was obtained from the lung bases to the pubic symphysis during intravenous contrast administration. Multiple phases of enhancement obtained. Coronal 2-D reformats were also obtained. Study obtained in a Siemens sensation [address] Automatic Exposure Control was utilized. Total Dose length Product (DLP): 3916.[address] Dose Index Volume (CTDIvol): 23.44,25.96,26.35 mGy Comparison: None Findings: CT CHEST: No mass identified within the lungs which appear clear. No consolidation seen. There is mild basal atelectasis. No adenopathy appreciated within the mediastinum or alice. The axilla appear clear. Aorta is mildly calcified. Coronary calcifications also noted. No pleural or pericardial fluid identified. CT abdomen pelvis: The liver demonstrates probable surface nodularity. There is probable recanalization of the umbilical vein. The spleen is enlarged measuring 17 cm. Findings are suspicious for portal venous hypertension and liver disease. There are no focal enhancing lesions within the liver identified on arterial or venous phases. The portal vein appears to be patent. Gallstones are present. There is no biliary ductal dilatation identified. In the region of the head of the pancreas, there is peripancreatic soft tissue stranding suggestive of pancreatitis. Differential diagnosis for this includes peptic ulcer disease. There is also prominence of the pylorus and antrum of the stomach with thickened wall versus mass. Further evaluation with endoscopy is recommended. A pylorus region mass or duodenal ulcer disease not excluded. There is no evidence of perforation or free air. There is some thickening of the wall the duodenum and the first and second portions. There is no phlegmon or abscess. There is no pseudocyst. There is a 5 cm cyst in the upper pole the right kidney. There is no hydronephrosis or evidence of renal stones. The appendix is not definitely seen but there are no secondary signs of acute appendicitis. There is no evidence of bowel obstruction. Small bilateral inguinal hernias containing fat are demonstrated. Diverticula noted in the sigmoid colon. No definite evidence of acute diverticulitis. There is a severe compression fracture deformity of the L1 vertebra (vertebra plana). There is moderate retropulsion of the vertebra into the canal. Correlate clinically for nerve root compression. IMPRESSION: Suspicion of soft local acute pancreatitis involving the region of the pancreatic head. Secondary duodenitis and moderate inflammation are noted. No definite abscess identified. Differential diagnosis includes peptic ulcer disease with secondary pancreatitis. Question of a mass involving the region of the pylorus/antrum of the stomach. Peptic ulcer disease is a consideration or ulcerating tumor. Evaluation with endoscopy is highly recommended. No definite evidence of metastatic neoplasm involving the liver. Suspicion of cirrhosis/chronic liver disease. Stigmata of portal hypertension demonstrated including splenomegaly and probable recanalization of the umbilical vein. Correlate clinically. Cholelithiasis. Right renal cyst. Atherosclerotic vascular disease Diverticulosis of the colon. No definite acute diverticulitis. Severe L1 vertebral body fracture. This is probably old. Moderate retropulsion into the canal noted. Correlate clinically. The CT scanner at [facility] is accredited by the [employer] and the scans are performed using dose optimization techniques as appropriate to a performed exam including Automatic Exposure control.
--- NOTE | 2018-04-27 15:31 | Cardiology Report ---
APPROVED REPORT EKG Measurement Heart [id number] Sinus rhythm with 1st degree AV block Otherwise normal ECG
[2018-04-27 16:00] VITALS: BP 134/79
--- NOTE | 2018-04-27 16:01 | Internal Med Progress Note ---
Subjective Physician Name Josh Schmitz Attending Physician Josh Schmitz MD Current Medications Medications (Trade) Dose Ordered Sig/Elsy Route PRN Reason Start Time Stop Time Status Last Admin Dose Admin Al Hydroxide/Mg Hydroxide (Mylanta II) 30 ml Q6H PRN ORAL dyspepsia 04/27/18 13:45 05/26/18 13:44 Dextrose (Dextrose 50%) 25 ml PRN IV hypoglycemia 04/27/18 13:45 05/26/18 13:59 Dextrose (Dextrose 50%) 50 ml PRN IV hypoglycemia 04/27/18 13:45 05/26/18 13:59 Dextrose/ Electrolytes 1,000 ml @ 100 mls/hr Q10H IV 04/27/18 15:00 05/27/18 14:59 04/27/18 15:18 Diphenhydramine HCl (Benadryl) 25 mg Q6H PRN ORAL Itching/Pruritis 04/27/18 13:45 05/26/18 13:44 Heparin Sodium (Porcine) (Heparin 5000 units/ml) 5,000 units EVERY 12 HOURS SUBQ 04/27/18 21:00 05/26/18 20:59 Lactulose (Cephulac) 10 gm THREE TIMES A DAY ORAL 04/27/18 18:00 05/26/18 17:59 Lorazepam (Ativan 2mg/ml 1ml) 1 mg Q4H PRN IV agitation 04/27/18 13:45 05/03/18 13:44 Metoclopramide HCl (Reglan) 10 mg Q6H PRN IVP servere nausea 04/27/18 13:45 05/26/18 13:44 Morphine Sulfate (Morphine Sulfate) 2 mg Q4H PRN IVP Severe Pain (Pain Scale 7-10) 04/27/18 13:45 05/03/18 13:44 Nitroglycerin (Ntg) 0.4 mg Q5M X 3 DOSES PRN SL Prn Chest Pain 04/27/18 13:45 05/26/18 13:44 Ondansetron HCl (Zofran) 4 mg Q6H PRN IVP Nausea & Vomiting 04/27/18 13:45 05/26/18 13:44 Pantoprazole (Protonix) 40 mg DAILY IV 04/28/18 09:00 05/27/18 08:59 Polyethylene Glycol (Miralax) 17 gm HSPRN PRN ORAL Constipation 04/27/18 21:00 05/26/18 20:59 Quetiapine Fumarate (SEROquel) 25 mg EVERY 6 HOURS PRN ORAL For Anxiety 04/27/18 18:00 05/27/18 13:29 Rifaximin (Xifaxan) 550 mg EVERY 12 HOURS ORAL 04/27/18 21:00 05/03/18 20:59 Temazepam (Restoril) 15 mg HSPRN PRN ORAL Insomnia 04/27/18 21:00 05/03/18 20:59 Allergies: Coded Allergies: No Known Allergies (Unverified , 04/26/18) Subjective awake, alert, responsive, NAD, No Nausea or Vomiting. Objective Last Vital Signs Date Time Temp Pulse Resp B/P (MAP) Pulse Ox O2 Delivery O2 Flow Rate FiO2 04/27/18 12:00 97.7 76 17 145/78 (100) 98 97.7 73 04/27/18 09:00 Room Air Laboratory Tests Test 04/27/18 06:00 04/27/18 12:00 White Blood Count 5.6 K/UL (4.8-10.8) Red Blood Count 3.30 M/UL (4.70-6.10) L Hemoglobin 11.2 G/DL (14.2-18.0) L Hematocrit 32.9 % (42.0-52.0) L Mean Corpuscular Volume 100 FL (80-99) H Mean Corpuscular Hemoglobin 34.0 PG (27.0-31.0) H Mean Corpuscular Hemoglobin Concent 34.2 G/DL (32.0-36.0) Red Cell Distribution Width 13.0 % (11.6-14.8) Platelet Count 68 K/UL (150-450) L Mean Platelet Volume 8.1 FL (6.5-10.1) Neutrophils (%) (Auto) % (45.0-75.0) Lymphocytes (%) (Auto) % (20.0-45.0) Monocytes (%) (Auto) % (1.0-10.0) Eosinophils (%) (Auto) % (0.0-3.0) Basophils (%) (Auto) % (0.0-2.0) Differential Total Cells Counted 100 Neutrophils % (Manual) 70 % (45-75) Lymphocytes % (Manual) 20 % (20-45) Monocytes % (Manual) 7 % (1-10) Eosinophils % (Manual) 3 % (0-3) Basophils % (Manual) 0 % (0-2) Band Neutrophils 0 % (0-8) Platelet Estimate Decreased L Platelet Morphology Normal Anisocytosis 1+ Macrocytosis 1+ Reticulocyte Count 2.4 % (0.0-2.0) H Prothrombin Time 12.7 SEC (9.30-11.50) H Prothromb Time International Ratio 1.2 (0.9-1.1) H Activated Partial Thromboplast Time 28 SEC (23-33) Sodium Level 146 MMOL/L (136-145) H Potassium Level 3.1 MMOL/L (3.5-5.1) L Chloride Level 111 MMOL/L (98-107) H Carbon Dioxide Level 26 MMOL/L (21-32) Anion Gap 9 mmol/L (5-15) Blood Urea Nitrogen 17 mg/dL (7-18) Creatinine 0.8 MG/DL (0.55-1.30) Estimat Glomerular Filtration Rate > 60 mL/min (>60) Glucose Level 74 MG/DL (74-106) Calcium Level 8.4 MG/DL (8.5-10.1) L Iron Level 59 ug/dL (50-175) Total Iron Binding Capacity 278 ug/dL (250-450) Percent Iron Saturation 21 % (15-50) Unsaturated Iron Binding 219 ug/dL (112-346) Ferritin 216 NG/ML (8-388) Total Bilirubin 5.1 MG/DL (0.2-1.0) H Direct Bilirubin 1.0 MG/DL (0.0-0.3) H Gamma Glutamyl Transpeptidase 28 U/L (5-85) Aspartate Amino Transf (AST/SGOT) 101 U/L (15-37) H Alanine Aminotransferase (ALT/SGPT) 25 U/L (12-78) Alkaline Phosphatase 155 U/L (46-116) H Total Protein 5.6 G/DL (6.4-8.2) L Albumin 2.5 G/DL (3.4-5.0) L Globulin 3.1 g/dL Albumin/Globulin Ratio 0.8 (1.0-2.7) L Amylase Level 37 U/L (25-115) Lipase 213 U/L (73-393) Carcinoembryonic Antigen Pending Vitamin B12 Level 804 PG/ML (193-986) Folate 14.1 NG/ML (8.6-58.9) Thyroid Stimulating Hormone (TSH) 1.821 uiU/mL (0.358-3.740) Free Thyroxine 1.12 NG/DL (0.76-1.46) Ammonia 70 umol/L (11-32) H Intake and Output 04/26/18 04/27/18 19:00 07:00 Intake Total 150 ml Output Total 400 ml 300 ml Balance -250 ml -300 ml Intake IV Total 150 ml Output Urine Total 400 ml 300 ml # Voids 1 Objective General: No acute distress, awake and alert HEENT: NCAT, sclera anicteric, PERRL, EOMI. Neck: Supple, no significant jugular venous distention, Lungs: Good inspiratory effort, clear to auscultation bilaterally, no Wheeze or Rales. Heart: Regular rate and rhythm, normal S1/S2, no murmurs/gallops Abdomen: soft, nontender, nondistended. Normoactive bowel sounds, morbid obesity. / Rectal: Refused and deferred. Extremities: No Cyanosis , clubbing , + 2 LE's edema. Neuro: A&O x 3, Able to move all extremities Skin: warm, no rashes Psych: Normal mood and affect Assessment/Plan Assessment/Plan (1) Hepatic encephalopathy (2) Altered mental status (3) Metastatic melanoma (4) Liver disease (5) Hyperbilirubinemia (6) morbid obesity (7) pedal edema (8) Thrombocytopenia Plan: F/u with GI recommendations DC IVF Monitor Labs PT Mobility Full code Josh Schmitz MD Apr 27, 2018 16:01
[2018-04-27] MEDS ORDERED: AFRIN NASAL SPR30 ML NASAL (16:39)
[2018-04-27] MEDS ORDERED: PRAVASTATIN SOD20 M1 ORAL (16:39)
[2018-04-27] MEDS ORDERED: METOPROLOL TART25 MG ORAL (16:39)
[2018-04-27] MEDS ORDERED: VALACYCLOVIR500 MG ORAL (16:39)
[2018-04-27] MEDS ORDERED: BENZONATATE200 MG ORAL (16:39)
[2018-04-27] MEDS ORDERED: TRAMADOL HCL50 MG ORAL (16:39)
[2018-04-27] MEDS ORDERED: FAMOTIDINE20 MG ORAL (16:39)
[2018-04-27] MEDS ORDERED: NAPROXEN500 M2 ORAL (16:39)
[2018-04-27] MEDS ORDERED: traMADol 50mg tab ORAL PRN (16:45)
[2018-04-27] MEDS ORDERED: Benzonatate 100mg Perles ORAL PRN (16:45)
[2018-04-27] MEDS: valACYclovir HCL 500mg tab ORAL SCH (17:52)
[2018-04-27 20:00] VITALS: BP 128/74
[2018-04-27] MEDS: Oxymetazoline 0.05% Na Spray 30ml NASAL SCH (20:00)
[2018-04-27] MEDS: Metoprolol 25mg tab ORAL SCH (20:38)
[2018-04-27] MEDS ORDERED: Miralax 17gm pkt ORAL PRN (21:00)
[2018-04-27] MEDS: LORazepam Inj 2mg/ml 1ml IV PRN (22:15)
--- NOTE | 2018-04-27 23:00 | Consultation ---
DATE OF CONSULTATION: 04/27/2018 HEMATOLOGY/ONCOLOGY CONSULTATION CONSULTING PHYSICIAN: Tyler Wagner M.D. REFERRING PHYSICIAN: Josh Schmitz M.D. REASON FOR CONSULT: Evaluation of stage IV melanoma. IDENTIFYING DATA: Dear Dr. 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 He is here for recent fall, weakness, fatigue, and altered mental status. Hematology/Oncology Service consulted for further evaluation and treatment. 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 PAST SURGICAL HISTORY: Prosthetic left eye. MEDICATION: Current medication, naproxen twice a day. ALLERGIES: No known drug allergies. SOCIAL HISTORY: Accompanied by president college or university in the ER. 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 No alcohol, tobacco, or illicit drug use. REVIEW OF SYSTEMS: Difficult to assess secondary to the patient's mental status. PHYSICAL EXAMINATION: VITAL SIGNS: Reviewed. GENERAL: No acute distress. HEENT: Reviewed. Left prosthetic eye noted. LUNGS: Decreased breath sounds. CARDIOVASCULAR: Regular rate. No S3 or S4. ABDOMEN: Soft and nontender. EXTREMITIES: The patient does have pitting edema from the feet bilaterally approximately 2-3+ all the way to the knees, both sides. He does have a right-sided wound healed wound that he received from a horse on the right side of his leg. LABORATORY AND DIAGNOSTIC DATA: WBC 5.6, hemoglobin 11.3, hematocrit 33 and platelet count 68,000. At his first admission here at [facility]; chemistry, calcium 8.4. Ferritin 216. Total bilirubin 5.1. Direct bilirubin of 1. Alkaline phosphatase 135. Troponin 0.553. B12 804. INR 1.2, and GI Service consulted as well. ASSESSMENT AND RECOMMENDATIONS: 1. Metastatic ocular melanoma. At this time is in remission per the patient. GI service consulted and CT scan of the abdomen and pelvis is pending. Bilirubin results are pending as well. 2. Thrombocytopenia, likely secondary to underlying liver disease. Closely monitor for improvement. Obtain hepatitis panel and HIV, do not know the patient's baseline. 3. Anemia due to underlying chronic disease. Continue to closely monitor. Anemia panel has been reviewed, has anemia due to underlying chronic disease. 4. Coagulopathy, likely secondary to the liver. 5. Hypoproteinemia, malnutrition. Further monitor for improvement, may need Ensure and increased p.o. intake. 6. Hypokalemia. Replete potassium. Tyler Wagner M.D. DR: VERITO JOB#: [id number] CC:
[2018-04-28] VITALS: BP 128/70
[2018-04-28 04:00] VITALS: BP 141/86
[2018-04-28 08:00] VITALS: BP 142/87
--- NOTE | 2018-04-28 08:08 | Pulmonology Progress Note ---
Assessment/Plan Assessment/Plan ASSESSMENT Altered mental status secondary to hepatic encephalopathy Chronic liver disease /cirrhosis with portal hypertension -RAYMUNDO Hyperbilirubinemia Elevated troponin, probably troponin leak History of melanoma left eye Thrombocytopenia Hypokalemia Anemia PLAN OF CARE MS floor repeat troponin, no cardiac complaints, telemetry and EKG previously no acute ischemic changes checked troponin this am, still with mild elevation, ( first -0.553, this am- 0.502 ) ECG done - no acute ischemic changes no complaints of chest pain, SOB , dizziness low suspicion for ACS given minimal elevation, flat levels, no change in ECG and no cardiac complaints likely leaking troponin possible due to liver disease CT of the abdomen and pelvis noted, -findings suspicious for acute pancreatitis, secondary duodenitis and moderate inflammation, but no definite abscess -no definite evidence of metastatic neoplasm involving the liver -however, suspicion of cirrhosis/chronic liver disease with stigmata of portal hypertension, -question of a mass involving the region of the pylorus/antrum of the stomach. Peptic ulcer disease is a consideration or ulcerating tumor( recommended eval with endoscopy) -cholelithiasis abdominal ultrasound + HSM, fatty liver, no gallstones paracentesis ordered on abdominal US no evidence of ascites started on lactulose and Xifaxan for hepatic encephalopathy , trend ammonia. not tolerating lactulose, but continue with Xifaxan - per further GI management AFP WNL hepatitis panel pending GI follows, deferred GI procedure for now, given elevated troponin no evidence of metastatic liver disease on imaging, findings c/w chronic lvier disease/ -RAYMUNDO consider cardio clearance for GI procedure - per PMD discretion anemia workup c/w anemia of chronic disease stool OB monitor HH with goal to keep Hgb above 7 O2 HHN prn monitor renal parameters and electrolytes, correct lytes as needed thrombocytopenia likely secondary to liver disease dc heparin, venous Duplex BLE, if negative place SCD GI prophylaxis pain management bowel regimen PT/OT supportive care case discussed and evaluated by supervising physician Subjective Allergies: Coded Allergies: No Known Allergies (Unverified , 04/26/18) Subjective denies chest pain, SOB, dizziness, palpitations, concern about unsteady gait and generalized weakness Objective Last 24 Hour Vital Signs Date Time Temp Pulse Resp B/P (MAP) Pulse Ox O2 Delivery O2 Flow Rate FiO2 04/28/18 04:00 97.4 88 19 141/86 (104) 97 97.4 04/28/18 00:00 98.3 73 20 128/70 (89) 96 98.3 04/27/18 21:00 Room Air 04/27/18 20:38 83 128/74 04/27/18 20:00 98.7 83 19 128/74 (92) 98 98.7 04/27/18 16:00 97.5 81 19 134/79 (97) 98 97.5 81 04/27/18 12:00 97.7 76 17 145/78 (100) 98 97.7 73 04/27/18 09:00 Room Air Intake and Output 04/27/18 04/28/18 19:00 07:00 Intake Total 100 ml 430 ml Output Total 250 ml 850 ml Balance -150 ml -420 ml Intake Oral 430 ml IV Total 100 ml Output Urine Total 250 ml 850 ml # Voids 3 2 General Appearance: no acute distress, other - awake, alert, responsive male HEENT: normocephalic, atraumatic, anicteric Respiratory/Chest: lungs clear, no respiratory distress, no accessory muscle use Cardiovascular: normal peripheral pulses, normal rate, no JVD Abdomen: normal bowel sounds, soft, non tender - distended Extremities: pedal pulses normal, other - +1 edema BLE Neurologic/Psychiatric: abnormal gait - unsteady , alert, responsive Musculoskeletal: atrophy - BLE Laboratory Tests 04/27/18 12:00: Ammonia 70H Current Medications Medications (Trade) Dose Ordered Sig/Elsy Route PRN Reason Start Time Stop Time Status Last Admin Dose Admin Al Hydroxide/Mg Hydroxide (Mylanta II) 30 ml Q6H PRN ORAL dyspepsia 04/27/18 13:45 05/26/18 13:44 Benzonatate (Tessalon Perles) 200 mg THREE TIMES A DAY PRN ORAL For Cough 04/27/18 16:45 05/27/18 16:44 Dextrose (Dextrose 50%) 25 ml PRN IV hypoglycemia 04/27/18 13:45 05/26/18 13:59 Dextrose (Dextrose 50%) 50 ml PRN IV hypoglycemia 04/27/18 13:45 05/26/18 13:59 Diphenhydramine HCl (Benadryl) 25 mg Q6H PRN ORAL Itching/Pruritis 04/27/18 13:45 05/26/18 13:44 Famotidine (Pepcid) 20 mg Q12HR ORAL 04/27/18 21:00 05/27/18 20:59 04/27/18 20:38 Heparin Sodium (Porcine) (Heparin 5000 units/ml) 5,000 units EVERY 12 HOURS SUBQ 04/27/18 21:00 05/26/18 20:59 Lactulose (Cephulac) 10 gm THREE TIMES A DAY ORAL 04/27/18 18:00 05/26/18 17:59 Lorazepam (Ativan 2mg/ml 1ml) 1 mg Q4H PRN IV agitation 04/27/18 13:45 05/03/18 13:44 04/27/18 22:15 Metoclopramide HCl (Reglan) 10 mg Q6H PRN IVP servere nausea 04/27/18 13:45 05/26/18 13:44 Metoprolol Tartrate (Lopressor) 25 mg Q12HR ORAL 04/27/18 21:00 05/27/18 20:59 04/27/18 20:38 Morphine Sulfate (Morphine Sulfate) 2 mg Q4H PRN IVP Severe Pain (Pain Scale 7-10) 04/27/18 13:45 05/03/18 13:44 Nitroglycerin (Ntg) 0.4 mg Q5M X 3 DOSES PRN SL Prn Chest Pain 04/27/18 13:45 05/26/18 13:44 Ondansetron HCl (Zofran) 4 mg Q6H PRN IVP Nausea & Vomiting 04/27/18 13:45 05/26/18 13:44 Oxymetazoline HCl (Afrin Nasal [place]) 2 spray TWICE A DAY NASAL 04/27/18 18:00 05/27/18 17:59 Pantoprazole (Protonix) 40 mg DAILY IV 04/28/18 09:00 05/27/18 08:59 Polyethylene Glycol (Miralax) 17 gm HSPRN PRN ORAL Constipation 04/27/18 21:00 05/26/18 20:59 Quetiapine Fumarate (SEROquel) 25 mg EVERY 6 HOURS PRN ORAL For Anxiety 04/27/18 18:00 05/27/18 13:29 Rifaximin (Xifaxan) 550 mg EVERY 12 HOURS ORAL 04/27/18 21:00 05/03/18 20:59 04/27/18 20:38 Temazepam (Restoril) 15 mg HSPRN PRN ORAL Insomnia 04/27/18 21:00 05/03/18 20:59 Tramadol HCl (Ultram) 50 mg Q8H PRN ORAL For Pain 04/27/18 16:45 05/04/18 16:44 Valacyclovir HCl (Valtrex) 500 mg TWICE A DAY ORAL 04/27/18 18:00 05/27/18 17:59 04/27/18 17:52 Aretha Zelaya [employer] SUPER[employer] Apr 28, 2018 08:08
[2018-04-28] MEDS ORDERED: Albuterol/Ipratropium 3ml neb HHN PRN (08:15)
[2018-04-28 08:47] LABS: HEMATOCRIT 34.4 % (42.0-52.0); HEMOGLOBIN 12.2 G/DL (14.2-18.0); MEAN CORPUSCULAR VOLUME 99 FL (80-99); PLATELET COUNT 68 K/UL (150-450); RED BLOOD COUNT 3.46 M/UL (4.70-6.10); WHITE BLOOD COUNT 6.6 K/UL (4.8-10.8)
[2018-04-28] MEDS ORDERED: Pantoprazole Inj IV SCH (09:00)
[2018-04-28] MEDS: valACYclovir HCL 500mg tab ORAL SCH ×3 (09:00→17:07)
[2018-04-28 09:07] LABS: AMMONIA 56 umol/L (11-32)
[2018-04-28 09:08] LABS: INR 1.1 (0.9-1.1)
[2018-04-28 09:15] LABS: ALANINE AMINOTRANSFERASE 28 U/L (12-78); ALBUMIN 2.6 G/DL (3.4-5.0); ALBUMIN/GLOBULIN RATIO 0.8 (1.0-2.7); ALKALINE PHOSPHATASE 185 U/L (46-116); ANION GAP 9 mmol/L (5-15); ASPARTATE AMINO TRANSFERASE 115 U/L (15-37); BILIRUBIN,TOTAL 3.9 MG/DL (0.2-1.0); BLOOD UREA NITROGEN 16 mg/dL (7-18); CALCIUM 8.2 MG/DL (8.5-10.1); CARBON DIOXIDE 25 MMOL/L (21-32); CHLORIDE 108 MMOL/L (98-107); CREATININE 0.9 MG/DL (0.55-1.30); PHOSPHORUS 2.8 MG/DL (2.5-4.9); POTASSIUM 3.4 MMOL/L (3.5-5.1); SODIUM 142 MMOL/L (136-145)
[2018-04-28 09:23] LABS: BILIRUBIN,DIRECT 0.9 MG/DL (0.0-0.3)
[2018-04-28] MEDS: Lactulose 10gm/15ml UDC ORAL SCH ×3 (09:49→17:07)
[2018-04-28] MEDS: Heparin 5000 units/ml inj SUBQ SCH (09:49)
[2018-04-28] MEDS: Metoprolol 25mg tab ORAL SCH ×2 (09:53→20:45)
[2018-04-28] MEDS: Oxymetazoline 0.05% Na Spray 30ml NASAL SCH (09:53)
[2018-04-28] MEDS ORDERED: Oxymetazoline 0.05% Na Spray 30ml NASAL PRN (10:15)
[2018-04-28 12:00] VITALS: BP 130/79
--- NOTE | 2018-04-28 12:59 | Physician Query ---
--------- THIS DOCUMENT IS A PERMANENT PART OF THE MEDICAL RECORD --------- PLEASE COMPLETE DOCUMENT BEFORE SIGNING Dear Dr. Wagner Date: 2017 Html Web Developer/CDS Name: Ghanshyam Roth Html Web Developer/CDS Phone No.: [phone] Exercise your independent professional judgment when responding to the query. Questions asked do not imply a particular answer is desired or expected. We greatly appreciate your clarification on this issue. CLINICAL DOCUMENTATION STATES: Consultation notes assessment includes " Malnutrition". CLINICAL FINDINGS SHOW: Lymphocytes: 9 -----> 20, Albumin: 2.6 ------> 2.8 Can you please identify the severity and type of Malnutrition: a. Severity b. Type [] Mild [] Protein Malnutrition [] Moderate [] Protein/Calorie Malnutrition [] Severe [] Other [] Unable to determine Criteria: Mild to Moderate Malnutrition >Serum albumin 2.8 to 3.4 g/dL or Pre-albumin 5 to 7 mg/dl (3) >Inadequate nutritional intake (1, 2, 3, 4) >NPO > 5 days >Weight loss: 5% in 1 month or 7.5% in 3 months or 10% in 6 months (1,3,4) >BMI 16 to 18.4 or Weight <90 of ideal body weight (1,2,3,4) Criteria: Moderate to Severe Malnutrition >Serum Albumin < 2.8 g/dL (1,2) >Lymphocytes < 1500/uL (2) >Inadequate nutritional intake3 , high stress e.g. major trauma, sepsis, pancreatitis, peterson etc. >Decubitus ulcers (1,2) , skin breakdown(2), easy hair pluckability >Weight <80% standard for height (2) >Triceps skin fold <3 mm2 >Mid-arm muscle circumference <25 cm2 >Creatinine-height index <60% standard (2) Condition Present on Admission: [] Yes [] No [ ] Unable to determine Please also document in your Progress Notes and/or Discharge Summary and indicate if the condition was present on admission. M.D. References: 1 [facility]. (2007). Nutritional support strategy for protein -energy malnutrition in the elderly. Clinical Practice Guidelines. 2 Dex Branch (2011). Malnutrition and nutritional assessment. In Jose Pimentel (18th Ed.) Jose's Principle of Internal Medicine ([phone]) [place], [place]: [facility], [facility] 3 Evelin Ch (2001). Clinical Nutrition: Protein-energy malnutrition in the inpatient. [employer] Journal, vol. 165 no. 10 (pp. 1345- 134 ). 4 Akira Willoughby (2012). Geriactric Nutrition: Nutritional Issues in Older Adults. [email or web address]
[2018-04-28 15:58] VITALS: BP 127/72
--- NOTE | 2018-04-28 17:38 | Internal Med Progress Note ---
Subjective Date of Service: Apr 28, 2018 Physician Name Carlos Alberto Madrigal Attending Physician Josh Schmitz MD Current Medications Medications (Trade) Dose Ordered Sig/Elsy Route PRN Reason Start Time Stop Time Status Last Admin Dose Admin Al Hydroxide/Mg Hydroxide (Mylanta II) 30 ml Q6H PRN ORAL dyspepsia 04/27/18 13:45 05/26/18 13:44 Albuterol/ Ipratropium (Albuterol/ Ipratropium) 3 ml Q4H PRN HHN Shortness of Breath 04/28/18 08:15 05/03/18 08:14 Benzonatate (Tessalon Perles) 200 mg THREE TIMES A DAY PRN ORAL For Cough 04/27/18 16:45 05/27/18 16:44 Dextrose (Dextrose 50%) 25 ml PRN IV hypoglycemia 04/27/18 13:45 05/26/18 13:59 Dextrose (Dextrose 50%) 50 ml PRN IV hypoglycemia 04/27/18 13:45 05/26/18 13:59 Diphenhydramine HCl (Benadryl) 25 mg Q6H PRN ORAL Itching/Pruritis 04/27/18 13:45 05/26/18 13:44 Famotidine (Pepcid) 20 mg Q12HR ORAL 04/27/18 21:00 05/27/18 20:59 04/28/18 09:53 Lactulose (Cephulac) 10 gm THREE TIMES A DAY ORAL 04/27/18 18:00 05/26/18 17:59 Lorazepam (Ativan 2mg/ml 1ml) 1 mg Q4H PRN IV agitation 04/27/18 13:45 05/03/18 13:44 04/27/18 22:15 Metoclopramide HCl (Reglan) 10 mg Q6H PRN IVP servere nausea 04/27/18 13:45 05/26/18 13:44 Metoprolol Tartrate (Lopressor) 25 mg Q12HR ORAL 04/27/18 21:00 05/27/18 20:59 04/28/18 09:53 Morphine Sulfate (Morphine Sulfate) 2 mg Q4H PRN IVP Severe Pain (Pain Scale 7-10) 04/27/18 13:45 05/03/18 13:44 Nitroglycerin (Ntg) 0.4 mg Q5M X 3 DOSES PRN SL Prn Chest Pain 04/27/18 13:45 05/26/18 13:44 Ondansetron HCl (Zofran) 4 mg Q6H PRN IVP Nausea & Vomiting 04/27/18 13:45 05/26/18 13:44 Oxymetazoline HCl (Afrin Nasal [place]) 2 spray TWICE A DAY PRN NASAL nasal congestion 04/28/18 10:15 05/27/18 17:59 Pantoprazole (Protonix) 40 mg DAILY IV 04/28/18 09:00 05/27/18 08:59 04/28/18 09:53 Polyethylene Glycol (Miralax) 17 gm HSPRN PRN ORAL Constipation 04/27/18 21:00 05/26/18 20:59 Quetiapine Fumarate (SEROquel) 25 mg EVERY 6 HOURS PRN ORAL For Anxiety 04/27/18 18:00 05/27/18 13:29 Rifaximin (Xifaxan) 550 mg EVERY 12 HOURS ORAL 04/27/18 21:00 05/03/18 20:59 04/28/18 09:53 Temazepam (Restoril) 15 mg HSPRN PRN ORAL Insomnia 04/27/18 21:00 05/03/18 20:59 Tramadol HCl (Ultram) 50 mg Q8H PRN ORAL For Pain 04/27/18 16:45 05/04/18 16:44 Valacyclovir HCl (Valtrex) 500 mg TWICE A DAY ORAL 04/27/18 18:00 05/27/18 17:59 04/27/18 17:52 Allergies: Coded Allergies: No Known Allergies (Unverified , 04/26/18) ROS Limited/Unobtainable: No Constitutional: Reports: no symptoms HEENT: Reports: no symptoms Cardiovascular: Reports: no symptoms Respiratory: Reports: no symptoms Gastrointestinal/Abdominal: Reports: no symptoms Genitourinary: Reports: no symptoms Neurologic/Psychiatric: Reports: no symptoms Subjective 67 YO M admitted with altered mental status. Now hepatic encephalopathy. Cover for Int [facility]-Dr Schmitz Less confused today. C/O back pain. Await endoscopy Objective Last Vital Signs Date Time Temp Pulse Resp B/P (MAP) Pulse Ox O2 Delivery O2 Flow Rate FiO2 04/28/18 15:58 97.3 70 20 127/72 (90) 98 97.3 04/28/18 09:41 Room Air 21 General Appearance: WD/WN, no apparent distress, alert EENT: PERRL/EOMI, normal ENT inspection, TMs normal Neck: non-tender, normal alignment, supple, normal inspection Cardiovascular: normal peripheral pulses, normal rate, regular rhythm, no gallop/murmur, no JVD Respiratory/Chest: chest wall non-tender, lungs clear, normal breath sounds, no respiratory distress, no accessory muscle use Abdomen: normal bowel sounds, non tender, soft, no organomegaly, no mass Extremities: normal range of motion, non-tender Edema: trace edema Neurologic: pump servicer II-XII grossly normal, no motor/sensory deficits Skin: normal pigmentation, warm/dry Laboratory Tests Test 04/28/18 08:00 White Blood Count 6.6 K/UL (4.8-10.8) Red Blood Count 3.46 M/UL (4.70-6.10) L Hemoglobin 12.2 G/DL (14.2-18.0) L Hematocrit 34.4 % (42.0-52.0) L Mean Corpuscular Volume 99 FL (80-99) Mean Corpuscular Hemoglobin 35.3 PG (27.0-31.0) H Mean Corpuscular Hemoglobin Concent 35.5 G/DL (32.0-36.0) Red Cell Distribution Width 13.0 % (11.6-14.8) Platelet Count 68 K/UL (150-450) L Mean Platelet Volume 7.5 FL (6.5-10.1) Neutrophils (%) (Auto) % (45.0-75.0) Lymphocytes (%) (Auto) % (20.0-45.0) Monocytes (%) (Auto) % (1.0-10.0) Eosinophils (%) (Auto) % (0.0-3.0) Basophils (%) (Auto) % (0.0-2.0) Differential Total Cells Counted 100 Neutrophils % (Manual) 75 % (45-75) Lymphocytes % (Manual) 19 % (20-45) L Monocytes % (Manual) 5 % (1-10) Eosinophils % (Manual) 1 % (0-3) Basophils % (Manual) 0 % (0-2) Band Neutrophils 0 % (0-8) Platelet Estimate Decreased L Platelet Morphology Normal Macrocytosis 1+ Prothrombin Time 11.9 SEC (9.30-11.50) H Prothromb Time International Ratio 1.1 (0.9-1.1) Activated Partial Thromboplast Time 28 SEC (23-33) Sodium Level 142 MMOL/L (136-145) Potassium Level 3.4 MMOL/L (3.5-5.1) L Chloride Level 108 MMOL/L (98-107) H Carbon Dioxide Level 25 MMOL/L (21-32) Anion Gap 9 mmol/L (5-15) Blood Urea Nitrogen 16 mg/dL (7-18) Creatinine 0.9 MG/DL (0.55-1.30) Estimat Glomerular Filtration Rate > 60 mL/min (>60) Glucose Level 121 MG/DL (74-106) H Calcium Level 8.2 MG/DL (8.5-10.1) L Phosphorus Level 2.8 MG/DL (2.5-4.9) Magnesium Level 1.8 MG/DL (1.8-2.4) Total Bilirubin 3.9 MG/DL (0.2-1.0) H Direct Bilirubin 0.9 MG/DL (0.0-0.3) H Aspartate Amino Transf (AST/SGOT) 115 U/L (15-37) H Alanine Aminotransferase (ALT/SGPT) 28 U/L (12-78) Alkaline Phosphatase 185 U/L (46-116) H Ammonia 56 umol/L (11-32) H Troponin I 0.502 ng/mL (0.000-0.056) Total Protein 5.9 G/DL (6.4-8.2) L Albumin 2.6 G/DL (3.4-5.0) L Globulin 3.3 g/dL Albumin/Globulin Ratio 0.8 (1.0-2.7) L Hepatitis A IgM Antibody Pending Hepatitis B Surface Antigen Pending Hepatitis B Core IgM Antibody Pending Hepatitis C Antibody Pending Intake and Output 04/27/18 04/28/18 19:00 07:00 Intake Total 100 ml 430 ml Output Total 250 ml 850 ml Balance -150 ml -420 ml Intake Oral 430 ml IV Total 100 ml Output Urine Total 250 ml 850 ml # Voids 3 2 Assessment/Plan Problem List: (1) History of melanoma Assessment & Plan: left eye; remission-see onc note (2) Gastric mass Assessment & Plan: See CT abdomen. Will require endoscopy (3) Sludge in gallbladder (4) Pancreatitis (5) Hepatic encephalopathy Assessment & Plan: Resolving-see GI note (6) Altered mental status Assessment & Plan: Hepatic encephalopathy. Improving (7) Lumbar vertebral fracture Assessment & Plan: Await MRI Status: progressing Carlos Alberto Madrigal MD Apr 28, 2018 17:38
[2018-04-28] MEDS ORDERED: Gadavist 7.5mMol/7.5ml vial IV PRN (17:45)
--- NOTE | 2018-04-28 18:44 | General Progress Note ---
Assessment/Plan Assessment/Plan Assessment (1) Liver disease/RAYMUNDO (2) Hyperbilirubinemia (3) Hepatic encephalopathy (4) Altered mental status Recommendations defer GI procedures at this time given elevated troponin levels abdominal U/S anemia work up OB stool r/o GI bleed monitor H&H, prn transfusions bowel regime ppi Xifaxan fu labs, AFP, NH3, hep panel Subjective Allergies: Coded Allergies: No Known Allergies (Unverified , 04/26/18) Subjective Above noted d/w Rn refuses to take lactulose due to side effects Objective Last 24 Hour Vital Signs Date Time Temp Pulse Resp B/P (MAP) Pulse Ox O2 Delivery O2 Flow Rate FiO2 04/28/18 15:58 97.3 70 20 127/72 (90) 98 97.3 04/28/18 12:00 97.6 68 19 130/79 (96) 97 97.6 04/28/18 09:53 77 142/87 04/28/18 09:41 77 22 Room Air 21 04/28/18 09:00 Room Air 04/28/18 08:00 97.4 77 18 142/87 (105) 97 97.4 04/28/18 04:00 97.4 88 19 141/86 (104) 97 97.4 04/28/18 00:00 98.3 73 20 128/70 (89) 96 98.3 04/27/18 21:00 Room Air 04/27/18 20:38 83 128/74 04/27/18 20:00 98.7 83 19 128/74 (92) 98 98.7 Intake and Output 04/27/18 04/28/18 19:00 07:00 Intake Total 100 ml 430 ml Output Total 250 ml 850 ml Balance -150 ml -420 ml Intake Oral 430 ml IV Total 100 ml Output Urine Total 250 ml 850 ml # Voids 3 2 Laboratory Tests 04/28/18 08:00: White Blood Count 6.6, Red Blood Count 3.46L, Hemoglobin 12.2L, Hematocrit 34.4L , Mean Corpuscular Volume 99, Mean Corpuscular Hemoglobin 35.3H, Mean Corpuscular Hemoglobin Concent 35.5, Red Cell Distribution Width 13.0, Platelet Count 68L, Mean Platelet Volume 7.5, Neutrophils (%) (Auto) , Lymphocytes (%) ( Auto) , Monocytes (%) (Auto) , Eosinophils (%) (Auto) , Basophils (%) (Auto) , Differential Total Cells Counted 100, Neutrophils % (Manual) 75, Lymphocytes % ( Manual) 19L, Monocytes % (Manual) 5, Eosinophils % (Manual) 1, Basophils % ( Manual) 0, Band Neutrophils 0, Platelet Estimate DecreasedL, Platelet Morphology Normal, Macrocytosis 1+, Prothrombin Time 11.9H, Prothromb Time International Ratio 1.1, Activated Partial Thromboplast Time 28, Sodium Level 142, Potassium Level 3.4L, Chloride Level 108H, Carbon Dioxide Level 25, Anion Gap 9, Blood Urea Nitrogen 16, Creatinine 0.9, Estimat Glomerular Filtration Rate > 60, Glucose Level 121H, Calcium Level 8.2L, Phosphorus Level 2.8, Magnesium Level 1.8, Total Bilirubin 3.9H, Direct Bilirubin 0.9H, Aspartate Amino Transf (AST/SGOT) 115H, Alanine Aminotransferase (ALT/SGPT) 28, Alkaline Phosphatase 185H, Ammonia 56H, Troponin I 0.502H, Total Protein 5.9L, Albumin 2.6L, Globulin 3.3, Albumin/Globulin Ratio 0.8L, Hepatitis A IgM Antibody [ Pending], Hepatitis B Surface Antigen [Pending], Hepatitis B Core IgM Antibody [ Pending], Hepatitis C Antibody [Pending] Height (Feet): 6 Height (Inches): 3.00 Weight (Pounds): 284 Objective WDWN NCAT supple CTA RR soft NT, mildly distended (+) edema Clau Elmore MD Apr 28, 2018 18:44
[2018-04-28 20:00] VITALS: BP 133/76
[2018-04-29] VITALS: BP 137/68
[2018-04-29 04:00] VITALS: BP 122/74
[2018-04-29 07:12] LABS: HEMATOCRIT 34.6 % (42.0-52.0); HEMOGLOBIN 11.9 G/DL (14.2-18.0); MEAN CORPUSCULAR VOLUME 99 FL (80-99); PLATELET COUNT 60 K/UL (150-450); RED BLOOD COUNT 3.51 M/UL (4.70-6.10); RED CELL DISTRIBUTION WIDTH 12.4 % (11.6-14.8); WHITE BLOOD COUNT 6.5 K/UL (4.8-10.8)
--- NOTE | 2018-04-29 07:39 | Pulmonology Progress Note ---
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 -RAYMUNDO Hyperbilirubinemia Elevated troponin, probably troponin leak History of melanoma left eye Thrombocytopenia Hypokalemia Anemia PLAN OF CARE [facility] floor repeated troponin with mild elevation on 04/28 no cardiac complaints, telemetry and EKG previously no acute ischemic changes checked troponin this am, still with mild elevation, ( first -0.553, 04/28-0.502 ) ECG done - no acute ischemic changes no complaints of chest pain, SOB , dizziness low suspicion for ACS given minimal elevation, flat levels, no change in ECG and no cardiac complaints likely leaking troponin possible due to liver disease CT of the abdomen and pelvis noted, -findings suspicious for acute pancreatitis, secondary duodenitis and moderate inflammation, but no definite abscess -no definite evidence of metastatic neoplasm involving the liver -however, suspicion of cirrhosis/chronic liver disease with stigmata of portal hypertension, -question of a mass involving the region of the pylorus/antrum of the stomach. Peptic ulcer disease is a consideration or ulcerating tumor( recommended eval with endoscopy) -cholelithiasis abdominal ultrasound + HSM, fatty liver, no gallstones paracentesis ordered on abdominal US no evidence of ascites started on lactulose and Xifaxan for hepatic encephalopathy , trend ammonia. not tolerating lactulose, but continue with Xifaxan - per further GI management ammonia trending down AFP WNL hepatitis panel pending GI follows, deferred GI procedure for now, given elevated troponin likely RAYMUNDO, no evidence of metastatic disease on imaging consider cardio clearance for GI procedure - per PMD discretion anemia workup c/w anemia of chronic disease stool OB pending monitor HH with goal to keep Hgb above 7 O2 HHN prn monitor renal parameters and electrolytes, correct lytes as needed thrombocytopenia likely secondary to liver disease off heparin, venous Duplex BLE, if negative place SCD GI prophylaxis pain management bowel regimen PT/OT supportive care case discussed and evaluated by supervising physician Subjective Allergies: Coded Allergies: No Known Allergies (Unverified , 04/26/18) Subjective denies chest pain, SOB, dizziness, palpitations, concerned about unsteady gait and generalized weakness PT eval in progress Objective Last 24 Hour Vital Signs Date Time Temp Pulse Resp B/P (MAP) Pulse Ox O2 Delivery O2 Flow Rate FiO2 04/29/18 04:00 98.2 77 19 122/74 (90) 96 98.2 04/29/18 00:00 97.5 79 15 137/68 (91) 95 97.5 04/28/18 20:57 81 18 Room Air 21 04/28/18 20:50 Room Air 04/28/18 20:45 70 127/72 04/28/18 20:00 97.9 75 16 133/76 (95) 94 97.9 04/28/18 15:58 97.3 70 20 127/72 (90) 98 97.3 04/28/18 12:00 97.6 68 19 130/79 (96) 97 97.6 04/28/18 09:53 77 142/87 04/28/18 09:41 77 22 Room Air 21 04/28/18 09:00 Room Air 04/28/18 08:00 97.4 77 18 142/87 (105) 97 97.4 Intake and Output 04/28/18 04/29/18 19:00 07:00 Intake Total 720 ml 1330 ml Output Total 700 ml Balance 720 ml 630 ml Intake Oral 720 ml 480 ml Other 850 ml Output Urine Total 700 ml # Voids 2 7 Objective General Appearance: no acute distress, awake, alert, responsive male HEENT: normocephalic, atraumatic, anicteric Respiratory/Chest: lungs clear, no respiratory distress, no accessory muscle use Cardiovascular: normal peripheral pulses, normal rate, no JVD Abdomen: normal bowel sounds, soft, non tender - distended Extremities: pedal pulses normal, other - +1 edema BLE Neurologic/Psychiatric: abnormal gait - unsteady , alert, responsive Musculoskeletal: atrophy - BLE Laboratory Tests 04/28/18 08:00: White Blood Count 6.6, Red Blood Count 3.46L, Hemoglobin 12.2L, Hematocrit 34.4L , Mean Corpuscular Volume 99, Mean Corpuscular Hemoglobin 35.3H, Mean Corpuscular Hemoglobin Concent 35.5, Red Cell Distribution Width 13.0, Platelet Count 68L, Mean Platelet Volume 7.5, Neutrophils (%) (Auto) , Lymphocytes (%) ( Auto) , Monocytes (%) (Auto) , Eosinophils (%) (Auto) , Basophils (%) (Auto) , Differential Total Cells Counted 100, Neutrophils % (Manual) 75, Lymphocytes % ( Manual) 19L, Monocytes % (Manual) 5, Eosinophils % (Manual) 1, Basophils % ( Manual) 0, Band Neutrophils 0, Platelet Estimate DecreasedL, Platelet Morphology Normal, Macrocytosis 1+, Prothrombin Time 11.9H, Prothromb Time International Ratio 1.1, Activated Partial Thromboplast Time 28, Sodium Level 142, Potassium Level 3.4L, Chloride Level 108H, Carbon Dioxide Level 25, Anion Gap 9, Blood Urea Nitrogen 16, Creatinine 0.9, Estimat Glomerular Filtration Rate > 60, Glucose Level 121H, Calcium Level 8.2L, Phosphorus Level 2.8, Magnesium Level 1.8, Total Bilirubin 3.9H, Direct Bilirubin 0.9H, Aspartate Amino Transf (AST/SGOT) 115H, Alanine Aminotransferase (ALT/SGPT) 28, Alkaline Phosphatase 185H, Ammonia 56H, Troponin I 0.502H, Total Protein 5.9L, Albumin 2.6L, Globulin 3.3, Albumin/Globulin Ratio 0.8L, Hepatitis A IgM Antibody [ Pending], Hepatitis B Surface Antigen [Pending], Hepatitis B Core IgM Antibody [ Pending], Hepatitis C Antibody [Pending] 04/28/18 17:16: Stool Occult Blood [Pending] 04/29/18 06:20: White Blood Count 6.5, Red Blood Count 3.51L, Hemoglobin 11.9L, Hematocrit 34.6L , Mean Corpuscular Volume 99, Mean Corpuscular Hemoglobin 33.9H, Mean Corpuscular Hemoglobin Concent 34.4, Red Cell Distribution Width 12.4, Platelet Count 60L, Mean Platelet Volume 8.4, Neutrophils (%) (Auto) , Lymphocytes (%) ( Auto) , Monocytes (%) (Auto) , Eosinophils (%) (Auto) , Basophils (%) (Auto) , Neutrophils % (Manual) [Pending], Lymphocytes % (Manual) [Pending], Platelet Estimate [Pending], Platelet Morphology [Pending], Sodium Level [Pending], Potassium Level [Pending], Chloride Level [Pending], Carbon Dioxide Level [ Pending], Blood Urea Nitrogen [Pending], Creatinine [Pending], Estimat Glomerular Filtration Rate [Pending], Glucose Level [Pending], Calcium Level [ Pending], Total Bilirubin [Pending], Direct Bilirubin [Pending], Aspartate Amino Transf (AST/SGOT) [Pending], Alanine Aminotransferase (ALT/SGPT) [Pending] , Alkaline Phosphatase [Pending], Total Protein [Pending], Albumin [Pending] Current Medications Medications (Trade) Dose Ordered Sig/Elsy Route PRN Reason Start Time Stop Time Status Last Admin Dose Admin Al Hydroxide/Mg Hydroxide (Mylanta II) 30 ml Q6H PRN ORAL dyspepsia 04/27/18 13:45 05/26/18 13:44 Albuterol/ Ipratropium (Albuterol/ Ipratropium) 3 ml Q4H PRN HHN Shortness of Breath 04/28/18 08:15 05/03/18 08:14 Benzonatate (Tessalon Perles) 200 mg THREE TIMES A DAY PRN ORAL For Cough 04/27/18 16:45 05/27/18 16:44 Dextrose (Dextrose 50%) 25 ml PRN IV hypoglycemia 04/27/18 13:45 05/26/18 13:59 Dextrose (Dextrose 50%) 50 ml PRN IV hypoglycemia 04/27/18 13:45 05/26/18 13:59 Diphenhydramine HCl (Benadryl) 25 mg Q6H PRN ORAL Itching/Pruritis 04/27/18 13:45 05/26/18 13:44 Famotidine (Pepcid) 20 mg Q12HR ORAL 04/27/18 21:00 05/27/18 20:59 04/28/18 20:45 Gadobutrol (Gadavist) 7.5 mmol NOW PRN IV Radiology Procedure 04/28/18 17:45 04/30/18 23:59 Lactulose (Cephulac) 10 gm THREE TIMES A DAY ORAL 04/27/18 18:00 05/26/18 17:59 Lorazepam (Ativan 2mg/ml 1ml) 1 mg Q4H PRN IV agitation 04/27/18 13:45 05/03/18 13:44 04/27/18 22:15 Metoclopramide HCl (Reglan) 10 mg Q6H PRN IVP servere nausea 04/27/18 13:45 05/26/18 13:44 Metoprolol Tartrate (Lopressor) 25 mg Q12HR ORAL 04/27/18 21:00 05/27/18 20:59 9/8/18 20:45 Morphine Sulfate (Morphine Sulfate) 2 mg Q4H PRN IVP Severe Pain (Pain Scale 7-10) 04/27/18 13:45 05/03/18 13:44 Nitroglycerin (Ntg) 0.4 mg Q5M X 3 DOSES PRN SL Prn Chest Pain 04/27/18 13:45 05/26/18 13:44 Ondansetron HCl (Zofran) 4 mg Q6H PRN IVP Nausea & Vomiting 04/27/18 13:45 05/26/18 13:44 Oxymetazoline HCl (Afrin Nasal [place]) 2 spray TWICE A DAY PRN NASAL nasal congestion 04/28/18 10:15 05/27/18 17:59 Pantoprazole (Protonix) 40 mg DAILY IV 04/28/18 09:00 05/27/18 08:59 04/28/18 09:53 Polyethylene Glycol (Miralax) 17 gm HSPRN PRN ORAL Constipation 04/27/18 21:00 05/26/18 20:59 Quetiapine Fumarate (SEROquel) 25 mg EVERY 6 HOURS PRN ORAL For Anxiety 04/27/18 18:00 05/27/18 13:29 Rifaximin (Xifaxan) 550 mg EVERY 12 HOURS ORAL 04/27/18 21:00 05/03/18 20:59 04/28/18 20:45 Temazepam (Restoril) 15 mg HSPRN PRN ORAL Insomnia 04/27/18 21:00 05/03/18 20:59 04/29/18 00:00 Tramadol HCl (Ultram) 50 mg Q8H PRN ORAL For Pain 04/27/18 16:45 05/04/18 16:44 Valacyclovir HCl (Valtrex) 500 mg TWICE A DAY ORAL 04/27/18 18:00 05/27/18 17:59 04/27/18 17:52 Aretha Zelaya NP Apr 29, 2018 07:39
[2018-04-29 07:41] LABS: ANION GAP 4 mmol/L (5-15); BLOOD UREA NITROGEN 10 mg/dL (7-18); CALCIUM 8.7 MG/DL (8.5-10.1); CARBON DIOXIDE 28 MMOL/L (21-32); CHLORIDE 109 MMOL/L (98-107); CREATININE 0.8 MG/DL (0.55-1.30); POTASSIUM 3.6 MMOL/L (3.5-5.1); SODIUM 141 MMOL/L (136-145)
[2018-04-29 07:48] LABS: ALANINE AMINOTRANSFERASE 27 U/L (12-78); ALBUMIN 2.5 G/DL (3.4-5.0); ALKALINE PHOSPHATASE 190 U/L (46-116); ASPARTATE AMINO TRANSFERASE 110 U/L (15-37); BILIRUBIN,TOTAL 3.8 MG/DL (0.2-1.0)
[2018-04-29 08:00] VITALS: BP 126/74
[2018-04-29] MEDS: Lactulose 10gm/15ml UDC ORAL SCH ×4 (09:00→17:10)
[2018-04-29] MEDS: valACYclovir HCL 500mg tab ORAL SCH ×2 (09:14→17:09)
[2018-04-29] MEDS: Metoprolol 25mg tab ORAL SCH ×2 (09:15→21:04)
[2018-04-29 12:00] VITALS: BP 123/75
--- NOTE | 2018-04-29 13:25 | General Progress Note ---
Assessment/Plan Assessment/Plan Assessment (1) Liver disease/RAYMUNDO (2) Hyperbilirubinemia (3) Hepatic encephalopathy (4) Altered mental status Recommendations defer GI procedures at this time given elevated troponin levels abdominal U/S anemia work up OB stool r/o GI bleed monitor H&H, prn transfusions bowel regime ppi Xifaxan fu labs, AFP, NH3, hep panel Subjective Allergies: Coded Allergies: No Known Allergies (Unverified , 04/26/18) Subjective Above noted d/w RN refuses to take lactulose but awake and conversant Objective Last 24 Hour Vital Signs Date Time Temp Pulse Resp B/P (MAP) Pulse Ox O2 Delivery O2 Flow Rate FiO2 04/29/18 12:00 97.7 69 18 123/75 (91) 96 97.7 04/29/18 09:15 79 126/74 04/29/18 09:00 Room Air 04/29/18 08:00 98.1 79 17 126/74 (91) 95 98.1 04/29/18 07:54 78 18 Room Air 21 04/29/18 04:00 98.2 77 19 122/74 (90) 96 98.2 04/29/18 00:00 97.5 79 15 137/68 (91) 95 97.5 04/28/18 20:57 81 18 Room Air 21 04/28/18 20:50 Room Air 04/28/18 20:45 70 127/72 04/28/18 20:00 97.9 75 16 133/76 (95) 94 97.9 04/28/18 15:58 97.3 70 20 127/72 (90) 98 97.3 Intake and Output 04/28/18 04/29/18 19:00 07:00 Intake Total 720 ml 1330 ml Output Total 700 ml Balance 720 ml 630 ml Intake Oral 720 ml 480 ml Other 850 ml Output Urine Total 700 ml # Voids 2 7 Laboratory Tests 04/28/18 17:16: Stool Occult Blood Positive 04/29/18 06:20: White Blood Count 6.5, Red Blood Count 3.51L, Hemoglobin 11.9L, Hematocrit 34.6L , Mean Corpuscular Volume 99, Mean Corpuscular Hemoglobin 33.9H, Mean Corpuscular Hemoglobin Concent 34.4, Red Cell Distribution Width 12.4, Platelet Count 60L, Mean Platelet Volume 8.4, Neutrophils (%) (Auto) , Lymphocytes (%) ( Auto) , Monocytes (%) (Auto) , Eosinophils (%) (Auto) , Basophils (%) (Auto) , Differential Total Cells Counted 100, Neutrophils % (Manual) 77H, Lymphocytes % (Manual) 17L, Monocytes % (Manual) 3, Eosinophils % (Manual) 3, Basophils % ( Manual) 0, Band Neutrophils 0, Platelet Estimate DecreasedL, Platelet Morphology Normal, Macrocytosis 1+, Sodium Level 141, Potassium Level 3.6, Chloride Level 109H, Carbon Dioxide Level 28, Anion Gap 4L, Blood Urea Nitrogen 10, Creatinine 0.8, Estimat Glomerular Filtration Rate > 60, Glucose Level 91, Calcium Level 8.7, Total Bilirubin 3.8H, Direct Bilirubin 1.0H, Aspartate Amino Transf (AST/SGOT) 110H, Alanine Aminotransferase (ALT/SGPT) 27, Alkaline Phosphatase 190H, Total Protein 5.7L, Albumin 2.5L Height (Feet): 6 Height (Inches): 3.00 Weight (Pounds): 284 Objective WDWN NCAT supple CTA RR soft NT, mildly distended (+) edema Clau Elmore MD Apr 29, 2018 13:25
--- NOTE | 2018-04-29 15:37 | Internal Med Progress Note ---
Subjective Date of Service: Apr 29, 2018 Physician Name KaitlinCarlos Alberto Attending Physician Josh Schmitz MD Current Medications Medications (Trade) Dose Ordered Sig/Elsy Route PRN Reason Start Time Stop Time Status Last Admin Dose Admin Al Hydroxide/Mg Hydroxide (Mylanta II) 30 ml Q6H PRN ORAL dyspepsia 04/27/18 13:45 05/26/18 13:44 Albuterol/ Ipratropium (Albuterol/ Ipratropium) 3 ml Q4H PRN HHN Shortness of Breath 04/28/18 08:15 05/03/18 08:14 Benzonatate (Tessalon Perles) 200 mg THREE TIMES A DAY PRN ORAL For Cough 04/27/18 16:45 05/27/18 16:44 Dextrose (Dextrose 50%) 25 ml PRN IV hypoglycemia 04/27/18 13:45 05/26/18 13:59 Dextrose (Dextrose 50%) 50 ml PRN IV hypoglycemia 04/27/18 13:45 05/26/18 13:59 Diphenhydramine HCl (Benadryl) 25 mg Q6H PRN ORAL Itching/Pruritis 04/27/18 13:45 05/26/18 13:44 Famotidine (Pepcid) 20 mg Q12HR ORAL 04/27/18 21:00 05/27/18 20:59 04/29/18 09:15 Gadobutrol (Gadavist) 7.5 mmol NOW PRN IV Radiology Procedure 04/28/18 17:45 04/30/18 23:59 Lactulose (Cephulac) 10 gm THREE TIMES A DAY ORAL 04/27/18 18:00 05/26/18 17:59 Lorazepam (Ativan 2mg/ml 1ml) 1 mg Q4H PRN IV agitation 04/27/18 13:45 05/03/18 13:44 04/27/18 22:15 Metoclopramide HCl (Reglan) 10 mg Q6H PRN IVP servere nausea 04/27/18 13:45 05/26/18 13:44 Metoprolol Tartrate (Lopressor) 25 mg Q12HR ORAL 04/27/18 21:00 05/27/18 20:59 04/29/18 09:15 Morphine Sulfate (Morphine Sulfate) 2 mg Q4H PRN IVP Severe Pain (Pain Scale 7-10) 04/27/18 13:45 05/03/18 13:44 Nitroglycerin (Ntg) 0.4 mg Q5M X 3 DOSES PRN SL Prn Chest Pain 04/27/18 13:45 05/26/18 13:44 Ondansetron HCl (Zofran) 4 mg Q6H PRN IVP Nausea & Vomiting 04/27/18 13:45 05/26/18 13:44 Oxymetazoline HCl (Afrin Nasal [place]) 2 spray TWICE A DAY PRN NASAL nasal congestion 04/28/18 10:15 05/27/18 17:59 Pantoprazole (Protonix) 40 mg DAILY ORAL 04/29/18 09:00 05/29/18 08:59 04/29/18 09:15 Polyethylene Glycol (Miralax) 17 gm HSPRN PRN ORAL Constipation 04/27/18 21:00 05/26/18 20:59 Quetiapine Fumarate (SEROquel) 25 mg EVERY 6 HOURS PRN ORAL For Anxiety 04/27/18 18:00 05/27/18 13:29 Rifaximin (Xifaxan) 550 mg EVERY 12 HOURS ORAL 04/27/18 21:00 05/03/18 20:59 04/28/18 20:45 Temazepam (Restoril) 15 mg HSPRN PRN ORAL Insomnia 04/27/18 21:00 05/03/18 20:59 04/29/18 00:00 Tramadol HCl (Ultram) 50 mg Q8H PRN ORAL For Pain 04/27/18 16:45 05/04/18 16:44 Valacyclovir HCl (Valtrex) 500 mg TWICE A DAY ORAL 04/27/18 18:00 05/27/18 17:59 04/29/18 09:14 Allergies: Coded Allergies: No Known Allergies (Unverified , 04/26/18) ROS Limited/Unobtainable: No Constitutional: Reports: no symptoms HEENT: Reports: no symptoms Cardiovascular: Reports: no symptoms Respiratory: Reports: no symptoms Gastrointestinal/Abdominal: Reports: no symptoms Genitourinary: Reports: no symptoms Neurologic/Psychiatric: Reports: no symptoms Subjective 67 YO M admitted with altered mental status. Now hepatic encephalopathy. Cover for Int Med-Dr Schmitz Less confused today. C/O back pain. Await endoscopy Objective Last Vital Signs Date Time Temp Pulse Resp B/P (MAP) Pulse Ox O2 Delivery O2 Flow Rate FiO2 04/29/18 12:00 97.7 69 18 123/75 (91) 96 97.7 04/29/18 09:00 Room Air 04/29/18 07:54 21 Laboratory Tests Test 04/28/18 17:16 04/29/18 06:20 Stool Occult Blood Positive (NEGATIVE) White Blood Count 6.5 K/UL (4.8-10.8) Red Blood Count 3.51 M/UL (4.70-6.10) L Hemoglobin 11.9 G/DL (14.2-18.0) L Hematocrit 34.6 % (42.0-52.0) L Mean Corpuscular Volume 99 FL (80-99) Mean Corpuscular Hemoglobin 33.9 PG (27.0-31.0) H Mean Corpuscular Hemoglobin Concent 34.4 G/DL (32.0-36.0) Red Cell Distribution Width 12.4 % (11.6-14.8) Platelet Count 60 K/UL (150-450) L Mean Platelet Volume 8.4 FL (6.5-10.1) Neutrophils (%) (Auto) % (45.0-75.0) Lymphocytes (%) (Auto) % (20.0-45.0) Monocytes (%) (Auto) % (1.0-10.0) Eosinophils (%) (Auto) % (0.0-3.0) Basophils (%) (Auto) % (0.0-2.0) Differential Total Cells Counted 100 Neutrophils % (Manual) 77 % (45-75) H Lymphocytes % (Manual) 17 % (20-45) L Monocytes % (Manual) 3 % (1-10) Eosinophils % (Manual) 3 % (0-3) Basophils % (Manual) 0 % (0-2) Band Neutrophils 0 % (0-8) Platelet Estimate Decreased L Platelet Morphology Normal Macrocytosis 1+ Sodium Level 141 MMOL/L (136-145) Potassium Level 3.6 MMOL/L (3.5-5.1) Chloride Level 109 MMOL/L (98-107) H Carbon Dioxide Level 28 MMOL/L (21-32) Anion Gap 4 mmol/L (5-15) L Blood Urea Nitrogen 10 mg/dL (7-18) Creatinine 0.8 MG/DL (0.55-1.30) Estimat Glomerular Filtration Rate > 60 mL/min (>60) Glucose Level 91 MG/DL (74-106) Calcium Level 8.7 MG/DL (8.5-10.1) Total Bilirubin 3.8 MG/DL (0.2-1.0) H Direct Bilirubin 1.0 MG/DL (0.0-0.3) H Aspartate Amino Transf (AST/SGOT) 110 U/L (15-37) H Alanine Aminotransferase (ALT/SGPT) 27 U/L (12-78) Alkaline Phosphatase 190 U/L (46-116) H Total Protein 5.7 G/DL (6.4-8.2) L Albumin 2.5 G/DL (3.4-5.0) L Intake and Output 04/28/18 04/29/18 19:00 07:00 Intake Total 720 ml 1330 ml Output Total 700 ml Balance 720 ml 630 ml Intake Oral 720 ml 480 ml Other 850 ml Output Urine Total 700 ml # Voids 2 7 Objective General Appearance: WD/WN, no apparent distress, alert EENT: PERRL/EOMI, normal ENT inspection, TMs normal Neck: non-tender, normal alignment, supple, normal inspection Cardiovascular: normal peripheral pulses, normal rate, regular rhythm, no gallop/murmur, no JVD Respiratory/Chest: chest wall non-tender, lungs clear, normal breath sounds, no respiratory distress, no accessory muscle use Abdomen: normal bowel sounds, non tender, soft, no organomegaly, no mass Extremities: normal range of motion, non-tender Edema: trace edema 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 Will require endoscopy (3) Sludge in gallbladder (4) Pancreatitis (5) Hepatic encephalopathy Assessment & Plan: CT abdomen =No Masses. Resolving-see GI note (6) Altered mental status Assessment & Plan: Hepatic encephalopathy. Improving (7) Lumbar vertebral fracture Assessment & Plan: Await MRI Status: not improved Carlos Alberto Madrigal MD Apr 29, 2018 15:37
[2018-04-29 15:49] VITALS: BP 126/77
[2018-04-29 20:00] VITALS: BP 126/76
[2018-04-30] VITALS: BP 125/73
[2018-04-30 04:00] VITALS: BP 112/58
[2018-04-30 06:26] LABS: HEMATOCRIT 33.5 % (42.0-52.0); HEMOGLOBIN 11.5 G/DL (14.2-18.0); MEAN CORPUSCULAR VOLUME 99 FL (80-99); PLATELET COUNT 63 K/UL (150-450); RED BLOOD COUNT 3.39 M/UL (4.70-6.10); RED CELL DISTRIBUTION WIDTH 12.7 % (11.6-14.8); WHITE BLOOD COUNT 5.4 K/UL (4.8-10.8)
[2018-04-30 06:55] LABS: ALANINE AMINOTRANSFERASE 33 U/L (12-78); ALBUMIN 2.4 G/DL (3.4-5.0); ALBUMIN/GLOBULIN RATIO 0.7 (1.0-2.7); ALKALINE PHOSPHATASE 192 U/L (46-116); ANION GAP 4 mmol/L (5-15); ASPARTATE AMINO TRANSFERASE 106 U/L (15-37); BILIRUBIN,TOTAL 3.8 MG/DL (0.2-1.0); BLOOD UREA NITROGEN 9 mg/dL (7-18); CALCIUM 8.7 MG/DL (8.5-10.1); CARBON DIOXIDE 29 MMOL/L (21-32); CHLORIDE 108 MMOL/L (98-107); CREATININE 0.8 MG/DL (0.55-1.30); POTASSIUM 3.4 MMOL/L (3.5-5.1); SODIUM 141 MMOL/L (136-145)
[2018-04-30 06:59] LABS: BILIRUBIN,DIRECT 0.8 MG/DL (0.0-0.3)
[2018-04-30 08:00] VITALS: BP 110/61
[2018-04-30] MEDS: Lactulose 10gm/15ml UDC ORAL SCH ×3 (08:15→17:58)
[2018-04-30] MEDS: Metoprolol 25mg tab ORAL SCH ×2 (08:51→20:59)
[2018-04-30] MEDS: valACYclovir HCL 500mg tab ORAL SCH ×2 (08:54→17:58)
--- NOTE | 2018-04-30 09:46 | Pulmonology Progress Note ---
Assessment/Plan Assessment/Plan ASSESSMENT Altered mental status secondary to hepatic encephalopathy Chronic liver disease /cirrhosis with portal hypertension -RAYMUNDO Hyperbilirubinemia Elevated troponin, probably troponin leak History of melanoma left eye Thrombocytopenia Hypokalemia Anemia PLAN OF CARE MS floor no cardiac complaints, telemetry and EKG previously no acute ischemic changes checked troponin , still with mild elevation, ( first -0.553, this am-0.502 ) ECG done - no acute ischemic changes no complaints of chest pain, SOB , dizziness low suspicion for ACS given minimal elevation, flat levels, no change in ECG and no cardiac complaints likely leaking troponin possible due to liver disease CT of the abdomen and pelvis noted, -findings suspicious for acute pancreatitis, secondary duodenitis and moderate inflammation, but no definite abscess -no definite evidence of metastatic neoplasm involving the liver -however, suspicion of cirrhosis/chronic liver disease with stigmata of portal hypertension, -question of a mass involving the region of the pylorus/antrum of the stomach. Peptic ulcer disease is a consideration or ulcerating tumor( recommended eval with endoscopy) -cholelithiasis abdominal ultrasound + HSM, fatty liver, no gallstones paracentesis ordered on abdominal US no evidence of ascites started on lactulose and Xifaxan for hepatic encephalopathy , trend ammonia; not tolerating lactulose, but continue with Xifaxan - per further GI management AFP WNL hepatitis panel negative GI follows, deferred GI procedure for now, given elevated troponin no evidence of metastatic liver disease on imaging, findings c/w chronic lvier disease/ -RAYMUNDO consider cardio clearance for GI procedure - per PMD discretion anemia workup c/w anemia of chronic disease stool OB monitor HH with goal to keep Hgb above 7 O2 HHN prn monitor renal parameters and electrolytes, correct lytes as needed thrombocytopenia likely secondary to liver disease off heparin, venous Duplex BLE, if negative place SCD GI prophylaxis pain management bowel regimen PT/OT supportive care MRI L spine ordered by PMD -pending case discussed and evaluated by supervising physician Subjective Allergies: Coded Allergies: No Known Allergies (Unverified , 04/26/18) Subjective denies chest pain, SOB, dizziness, palpitations, concerned about unsteady gait and generalized weakness PT eval in progress Objective Last 24 Hour Vital Signs Date Time Temp Pulse Resp B/P (MAP) Pulse Ox O2 Delivery O2 Flow Rate FiO2 04/30/18 08:51 80 110/61 04/30/18 04:00 96.7 80 18 112/58 (76) 96 96.7 04/30/18 00:00 98.0 74 18 125/73 (90) 97 98.0 04/29/18 21:04 72 126/77 04/29/18 20:53 Room Air 04/29/18 20:00 97.7 74 16 126/76 (93) 96 97.7 04/29/18 15:49 98.0 72 18 126/77 (93) 97 98.0 04/29/18 12:00 97.7 69 18 123/75 (91) 96 97.7 Intake and Output 04/29/18 04/30/18 19:00 07:00 Intake Total 240 ml 360 ml Output Total 660 ml 600 ml Balance -420 ml -240 ml Intake Oral 240 ml 360 ml Output Urine Total 660 ml 600 ml # Voids 8 Objective General Appearance: no acute distress, awake, alert, responsive male HEENT: normocephalic, atraumatic, anicteric Respiratory/Chest: lungs clear, no respiratory distress, no accessory muscle use Cardiovascular: normal peripheral pulses, normal rate, no JVD Abdomen: normal bowel sounds, soft, non tender - distended Extremities: pedal pulses normal, other - +1 edema BLE Neurologic/Psychiatric: abnormal gait - unsteady , alert, responsive Musculoskeletal: atrophy - BLE Laboratory Tests 04/30/18 05:30: White Blood Count 5.4, Red Blood Count 3.39L, Hemoglobin 11.5L, Hematocrit 33.5L , Mean Corpuscular Volume 99, Mean Corpuscular Hemoglobin 33.8H, Mean Corpuscular Hemoglobin Concent 34.3, Red Cell Distribution Width 12.7, Platelet Count 63L, Mean Platelet Volume 9.3, Neutrophils (%) (Auto) , Lymphocytes (%) ( Auto) , Monocytes (%) (Auto) , Eosinophils (%) (Auto) , Basophils (%) (Auto) , Differential Total Cells Counted 100, Neutrophils % (Manual) 75, Lymphocytes % ( Manual) 10L, Monocytes % (Manual) 7, Eosinophils % (Manual) 8H, Basophils % ( Manual) 0, Band Neutrophils 0, Platelet Estimate DecreasedL, Platelet Morphology Normal, Macrocytosis 1+, Sodium Level 141, Potassium Level 3.4L, Chloride Level 108H, Carbon Dioxide Level 29, Anion Gap 4L, Blood Urea Nitrogen 9, Creatinine 0.8, Estimat Glomerular Filtration Rate > 60, Glucose Level 82, Calcium Level 8.7, Total Bilirubin 3.8H, Direct Bilirubin 0.8H, Aspartate Amino Transf (AST/SGOT) 106H, Alanine Aminotransferase (ALT/SGPT) 33, Alkaline Phosphatase 192H, Total Protein 5.7L, Albumin 2.4L, Globulin 3.3, Albumin/ Globulin Ratio 0.7L Current Medications Medications (Trade) Dose Ordered Sig/Elsy Route PRN Reason Start Time Stop Time Status Last Admin Dose Admin Al Hydroxide/Mg Hydroxide (Mylanta II) 30 ml Q6H PRN ORAL dyspepsia 04/27/18 13:45 05/26/18 13:44 Albuterol/ Ipratropium (Albuterol/ Ipratropium) 3 ml Q4H PRN HHN Shortness of Breath 04/28/18 08:15 05/03/18 08:14 Benzonatate (Tessalon Perles) 200 mg THREE TIMES A DAY PRN ORAL For Cough 04/27/18 16:45 05/27/18 16:44 Dextrose (Dextrose 50%) 25 ml PRN IV hypoglycemia 04/27/18 13:45 05/26/18 13:59 Dextrose (Dextrose 50%) 50 ml PRN IV hypoglycemia 04/27/18 13:45 05/26/18 13:59 Diphenhydramine HCl (Benadryl) 25 mg Q6H PRN ORAL Itching/Pruritis 04/27/18 13:45 05/26/18 13:44 Famotidine (Pepcid) 20 mg Q12HR ORAL 04/27/18 21:00 05/27/18 20:59 04/30/18 08:54 Gadobutrol (Gadavist) 7.5 mmol NOW PRN IV Radiology Procedure 04/28/18 17:45 04/30/18 23:59 Lactulose (Cephulac) 10 gm THREE TIMES A DAY ORAL 04/27/18 18:00 05/26/18 17:59 Lorazepam (Ativan 2mg/ml 1ml) 1 mg Q4H PRN IV agitation 04/27/18 13:45 05/03/18 13:44 04/27/18 22:15 Metoclopramide HCl (Reglan) 10 mg Q6H PRN IVP servere nausea 04/27/18 13:45 05/26/18 13:44 Metoprolol Tartrate (Lopressor) 25 mg Q12HR ORAL 04/27/18 21:00 05/27/18 20:59 04/29/18 21:04 Morphine Sulfate (Morphine Sulfate) 2 mg Q4H PRN IVP Severe Pain (Pain Scale 7-10) 04/27/18 13:45 05/03/18 13:44 Nitroglycerin (Ntg) 0.4 mg Q5M X 3 DOSES PRN SL Prn Chest Pain 04/27/18 13:45 05/26/18 13:44 Ondansetron HCl (Zofran) 4 mg Q6H PRN IVP Nausea & Vomiting 04/27/18 13:45 05/26/18 13:44 Oxymetazoline HCl (Afrin Nasal [place]) 2 spray TWICE A DAY PRN NASAL nasal congestion 04/28/18 10:15 05/27/18 17:59 Pantoprazole (Protonix) 40 mg DAILY ORAL 04/29/18 09:00 05/29/18 08:59 04/30/18 08:54 Polyethylene Glycol (Miralax) 17 gm HSPRN PRN ORAL Constipation 04/27/18 21:00 05/26/18 20:59 Quetiapine Fumarate (SEROquel) 25 mg EVERY 6 HOURS PRN ORAL For Anxiety 04/27/18 18:00 05/27/18 13:29 Rifaximin (Xifaxan) 550 mg EVERY 12 HOURS ORAL 04/27/18 21:00 05/03/18 20:59 04/30/18 08:54 Temazepam (Restoril) 15 mg HSPRN PRN ORAL Insomnia 04/27/18 21:00 05/03/18 20:59 04/29/18 00:00 Tramadol HCl (Ultram) 50 mg Q8H PRN ORAL For Pain 04/27/18 16:45 05/04/18 16:44 Valacyclovir HCl (Valtrex) 500 mg TWICE A DAY ORAL 04/27/18 18:00 05/27/18 17:59 04/30/18 08:54 Aretha Zelaya COMPONENT TECHNICIAN Apr 30, 2018 09:46
--- NOTE | 2018-04-30 10:43 | General Progress Note ---
Assessment/Plan Assessment/Plan ASSESSMENT AND RECOMMENDATIONS: 1. Metastatic ocular melanoma. At this time is in remission per the patient. is s/p microwaev ablation. GI service consulted and CT scan of the abdom/pelvis/ chest shows potential mass in pylorus/stomach --> needs outpatient onc followup, wants to go to [facility] Dr. Garcia and Dr. Wick --> In addition, imaging showed Suspicion of cirrhosis/chronic liver disease. Stigmata of portal hypertension demonstrated including splenomegaly and probable recanalization of the umbilical vein. Correlate clinically. 2. Thrombocytopenia, likely secondary to underlying liver disease. Closely monitor for improvement. Hepatitis panel is negative --> hiv is pending at the moment --> no bleeding is noted 3. Anemia due to underlying chronic disease. Continue to closely monitor. Anemia panel has been reviewed, has anemia due to underlying chronic disease. --> panel has been reviewed 4. Coagulopathy, likely secondary to disease of the liver. --> vit K prn basis sq 5. Hypoproteinemia, protein/calornic malnutrition. Further monitor for improvement, may need Ensure and increased p.o. intake. ==> recommend nutrition eval followup 6. Hypokalemia. Replete potassium. 7. Hyperbilirubinemia as per Gi management --> ratio of uncong/claribel appears same Subjective Constitutional: Denies: no symptoms, chills, diaphoresis, fever, malaise, weakness, other HEENT: Denies: no symptoms, eye pain, blurred vision, tearing, double vision, ear pain, ear discharge, nose pain, nose congestion, throat pain, throat swelling, mouth pain, mouth swelling, other Cardiovascular: Denies: no symptoms, chest pain, edema, irregular heart rate, lightheadedness, palpitations, syncope, other Respiratory: Denies: no symptoms, cough, orthopnea, shortness of breath, SOB with excertion, SOB at rest, sputum, stridor, wheezing, other Gastrointestinal/Abdominal: Denies: no symptoms, abdomen distended, abdominal pain, black stools, tarry stools, blood in stool, constipated, diarrhea, difficulty swallowing, nausea, poor appetite, poor fluid intake, rectal bleeding , vomiting, other Genitourinary: Denies: no symptoms, burning, discharge, frequency, flank pain, hematuria, incontinence, pain, urgency, other Endocrine: Denies: no symptoms, excessive sweating, flushing, intolerance to cold, intolerance to heat, increased hunger, increased thirst, increased urine, unexplained weight gain, unexplained weight loss, other Allergies: Coded Allergies: No Known Allergies (Unverified , 04/26/18) Subjective several complaints today, talked to him about following up at [facility] as well as [facility] for optho issues Objective Last 24 Hour Vital Signs Date Time Temp Pulse Resp B/P (MAP) Pulse Ox O2 Delivery O2 Flow Rate FiO2 04/30/18 09:39 83 18 Room Air 21 04/30/18 09:00 Room Air 04/30/18 08:51 80 110/61 04/30/18 08:00 97.5 80 18 110/61 (77) 96 97.5 04/30/18 04:00 96.7 80 18 112/58 (76) 96 96.7 04/30/18 00:00 98.0 74 18 125/73 (90) 97 98.0 04/29/18 21:04 72 126/77 04/29/18 20:53 Room Air 04/29/18 20:00 97.7 74 16 126/76 (93) 96 97.7 04/29/18 15:49 98.0 72 18 126/77 (93) 97 98.0 04/29/18 12:00 97.7 69 18 123/75 (91) 96 97.7 Intake and Output 04/29/18 04/30/18 19:00 07:00 Intake Total 240 ml 360 ml Output Total 660 ml 600 ml Balance -420 ml -240 ml Intake Oral 240 ml 360 ml Output Urine Total 660 ml 600 ml # Voids 8 Laboratory Tests 04/30/18 05:30: White Blood Count 5.4, Red Blood Count 3.39L, Hemoglobin 11.5L, Hematocrit 33.5L , Mean Corpuscular Volume 99, Mean Corpuscular Hemoglobin 33.8H, Mean Corpuscular Hemoglobin Concent 34.3, Red Cell Distribution Width 12.7, Platelet Count 63L, Mean Platelet Volume 9.3, Neutrophils (%) (Auto) , Lymphocytes (%) ( Auto) , Monocytes (%) (Auto) , Eosinophils (%) (Auto) , Basophils (%) (Auto) , Differential Total Cells Counted 100, Neutrophils % (Manual) 75, Lymphocytes % ( Manual) 10L, Monocytes % (Manual) 7, Eosinophils % (Manual) 8H, Basophils % ( Manual) 0, Band Neutrophils 0, Platelet Estimate DecreasedL, Platelet Morphology Normal, Macrocytosis 1+, Sodium Level 141, Potassium Level 3.4L, Chloride Level 108H, Carbon Dioxide Level 29, Anion Gap 4L, Blood Urea Nitrogen 9, Creatinine 0.8, Estimat Glomerular Filtration Rate > 60, Glucose Level 82, Calcium Level 8.7, Total Bilirubin 3.8H, Direct Bilirubin 0.8H, Aspartate Amino Transf (AST/SGOT) 106H, Alanine Aminotransferase (ALT/SGPT) 33, Alkaline Phosphatase 192H, Troponin I 0.507H, Total Protein 5.7L, Albumin 2.4L, Globulin 3.3, Albumin/Globulin Ratio 0.7L Height (Feet): 6 Height (Inches): 3.00 Weight (Pounds): 284 General Appearance: no apparent distress EENT: normal ENT inspection Neck: supple Cardiovascular: normal peripheral pulses Respiratory/Chest: lungs clear Abdomen: normal bowel sounds Extremities: non-tender Edema: 1+ Leg (L), 1+ Leg (R) Edema: mild edema Neurologic: alert Tyler Wagner MD Apr 30, 2018 10:43
[2018-04-30 12:00] VITALS: BP 128/69
[2018-04-30] MEDS: LORazepam Inj 2mg/ml 1ml IV PRN ×2 (13:29→20:59)
--- NOTE | 2018-04-30 14:12 | GI Progress Note ---
Assessment/Plan Problems: (1) Metastatic melanoma ICD Codes: C79.9 - Secondary malignant neoplasm of unspecified site SNOMED: 960485175 (2) Liver disease ICD Codes: K76.9 - Liver disease, unspecified SNOMED: 192330128 (3) Hyperbilirubinemia ICD Codes: E80.6 - Other disorders of bilirubin metabolism SNOMED: 86151930 (4) Altered mental status ICD Codes: R41.82 - Altered mental status, unspecified SNOMED: 207473268 Qualifiers: Qualified Codes: R40.3 - Persistent vegetative state Status: stable, unchanged Status Narrative Discussed with Dr. Pena. Assessment/Plan abdominal U/S reviewed, see full report >> - Hepatosplenomegaly with fatty liver. - No definite gallstones. Suspected tumefactive sludge within the gallbladder. - 5 cm cyst right kidney. - Poor demonstration of the retroperitoneal structures. OB stool positive >> stable H&H prajapati CT noted, see full report >>In the region of the head of the pancreas, there is peripancreatic soft tissue stranding suggestive of pancreatitis. Differential diagnosis for this includes peptic ulcer disease. There is also prominence of the pylorus and antrum of the stomach with thickened wall versus mass. defer GI procedures at this time given elevated troponin levels >> will require cardiac clearance patient may benefit from EGD given recent findings on CT refusing lactulose, cont Xifaxan monitor H&H, prn transfusions bowel regime ppi fu labs The patient was seen and examined at bedside and all new and available data was reviewed in the patients chart. I agree with the above findings, impression and plan. (Patient seen earlier today. Signature stamp does not reflect patient encounter time.). - Sanjeev Pena MD Subjective Subjective refusing lactulose Objective Last 24 Hour Vital Signs Date Time Temp Pulse Resp B/P (MAP) Pulse Ox O2 Delivery O2 Flow Rate FiO2 04/30/18 12:00 98.1 84 20 128/69 (88) 96 98.1 04/30/18 09:39 83 18 Room Air 21 04/30/18 09:00 Room Air 04/30/18 08:51 80 110/61 04/30/18 08:00 97.5 80 18 110/61 (77) 96 97.5 04/30/18 04:00 96.7 80 18 112/58 (76) 96 96.7 04/30/18 00:00 98.0 74 18 125/73 (90) 97 98.0 04/29/18 21:04 72 126/77 04/29/18 20:53 Room Air 04/29/18 20:00 97.7 74 16 126/76 (93) 96 97.7 04/29/18 15:49 98.0 72 18 126/77 (93) 97 98.0 Intake and Output 04/29/18 04/30/18 19:00 07:00 Intake Total 240 ml 360 ml Output Total 660 ml 600 ml Balance -420 ml -240 ml Intake Oral 240 ml 360 ml Output Urine Total 660 ml 600 ml # Voids 8 Laboratory Tests Test 04/30/18 05:30 White Blood Count 5.4 K/UL (4.8-10.8) Red Blood Count 3.39 M/UL (4.70-6.10) L Hemoglobin 11.5 G/DL (14.2-18.0) L Hematocrit 33.5 % (42.0-52.0) L Mean Corpuscular Volume 99 FL (80-99) Mean Corpuscular Hemoglobin 33.8 PG (27.0-31.0) H Mean Corpuscular Hemoglobin Concent 34.3 G/DL (32.0-36.0) Red Cell Distribution Width 12.7 % (11.6-14.8) Platelet Count 63 K/UL (150-450) L Mean Platelet Volume 9.3 FL (6.5-10.1) Neutrophils (%) (Auto) % (45.0-75.0) Lymphocytes (%) (Auto) % (20.0-45.0) Monocytes (%) (Auto) % (1.0-10.0) Eosinophils (%) (Auto) % (0.0-3.0) Basophils (%) (Auto) % (0.0-2.0) Differential Total Cells Counted 100 Neutrophils % (Manual) 75 % (45-75) Lymphocytes % (Manual) 10 % (20-45) L Monocytes % (Manual) 7 % (1-10) Eosinophils % (Manual) 8 % (0-3) H Basophils % (Manual) 0 % (0-2) Band Neutrophils 0 % (0-8) Platelet Estimate Decreased L Platelet Morphology Normal Macrocytosis 1+ Sodium Level 141 MMOL/L (136-145) Potassium Level 3.4 MMOL/L (3.5-5.1) L Chloride Level 108 MMOL/L (98-107) H Carbon Dioxide Level 29 MMOL/L (21-32) Anion Gap 4 mmol/L (5-15) L Blood Urea Nitrogen 9 mg/dL (7-18) Creatinine 0.8 MG/DL (0.55-1.30) Estimat Glomerular Filtration Rate > 60 mL/min (>60) Glucose Level 82 MG/DL (74-106) Calcium Level 8.7 MG/DL (8.5-10.1) Total Bilirubin 3.8 MG/DL (0.2-1.0) H Direct Bilirubin 0.8 MG/DL (0.0-0.3) H Aspartate Amino Transf (AST/SGOT) 106 U/L (15-37) H Alanine Aminotransferase (ALT/SGPT) 33 U/L (12-78) Alkaline Phosphatase 192 U/L (46-116) H Troponin I 0.507 ng/mL (0.000-0.056) Total Protein 5.7 G/DL (6.4-8.2) L Albumin 2.4 G/DL (3.4-5.0) L Globulin 3.3 g/dL Albumin/Globulin Ratio 0.7 (1.0-2.7) L HIV (1&2) Antibody Rapid Negative (NEGATIVE) Height (Feet): 6 Height (Inches): 3.00 Weight (Pounds): 284 General Appearance: WD/WN, no apparent distress, alert, overweight Cardiovascular: normal rate Respiratory/Chest: normal breath sounds, no respiratory distress Abdominal Exam: normal bowel sounds, non tender, soft Extremities: normal range of motion, non-tender Lali Gaytan NP Apr 30, 2018 14:12
[2018-04-30 16:00] VITALS: BP 121/17
--- NOTE | 2018-04-30 16:29 | Diagnostic Imaging Report ---
Indication: Back pain, history of liver cancer, compression fracture demonstrated on recent CT scan Technique: Sagittal T1, sagittal T2 PROPELLER, sagittal STIR PROPELLER, axial T2 FRFSE, axial T2 PROPELLER disc cuts, axial T1, pre and postcontrast T1 fat saturated images of the lumbar Comparison: Reference made to images from abdomen pelvis CT dated 04/27/2018 Findings: Corresponding to findings on CT scan, there is a severe vertebra plana burst/compression fracture deformity of the L1 vertebral body. The degree of height loss is 80+ percent at the lateral margins and near complete centrally. There is posterior retropulsion of the posterior wall by about 5 mm. This narrows the spinal canal at this level to a minimum AP diameter of about 7 mm. This is at the level of the termination of the conus medullaris. There is mild edema, manifested by decreased T1 signal and increased STIR signal. The T1 findings are more striking than the STIR findings. There is a moderate amount of enhancement, particularly in the centralmost portion. There is some enhancement of the paraspinous soft tissues immediately surrounding the L1 vertebral body. The retropulsion results in mild bilateral neural foraminal stenosis at T12-L1, and mild neural foraminal stenosis at L1-2. Signal void within the T12-L1 disc is consistent with the vacuum formation demonstrated on prior CT scan. The remainder of the vertebral body heights are preserved. The remaining vertebral body marrow signal is normal. The remaining bony alignment is normal. No other unusual contrast enhancement is demonstrated. The disc spaces are preserved. At the remaining disc levels, no significant disc bulge or protrusion, spinal stenosis, or neural foraminal stenosis. Included extraspinal soft tissues are unremarkable. Impression: Positive for acute or subacute L1 vertebral body burst/compression fracture with severe vertebra plana deformity. Posterior retropulsion results in moderate narrowing of the spinal canal. There are no specific features to suggest that this is a pathologic fracture but this also cannot be excluded with any confidence Mild bilateral T12-L1 and L1-2 neural foraminal stenosis, secondary to the above No other acute or significant findings demonstrated
[2018-04-30] MEDS ORDERED: D5 1/2NS 1000ml IV ONE (16:35)
--- NOTE | 2018-04-30 18:24 | Internal Med Progress Note ---
Subjective Date of Service: Apr 30, 2018 Physician Name Carlos Alberto Madrigal Attending Physician Josh Schmitz MD Current Medications Medications (Trade) Dose Ordered Sig/Elsy Route PRN Reason Start Time Stop Time Status Last Admin Dose Admin Al Hydroxide/Mg Hydroxide (Mylanta II) 30 ml Q6H PRN ORAL dyspepsia 04/27/18 13:45 05/26/18 13:44 Albuterol/ Ipratropium (Albuterol/ Ipratropium) 3 ml Q4H PRN HHN Shortness of Breath 04/28/18 08:15 05/03/18 08:14 Benzonatate (Tessalon Perles) 200 mg THREE TIMES A DAY PRN ORAL For Cough 04/27/18 16:45 05/27/18 16:44 Dextrose (Dextrose 50%) 25 ml PRN IV hypoglycemia 04/27/18 13:45 05/26/18 13:59 Dextrose (Dextrose 50%) 50 ml PRN IV hypoglycemia 04/27/18 13:45 05/26/18 13:59 Diphenhydramine HCl (Benadryl) 25 mg Q6H PRN ORAL Itching/Pruritis 04/27/18 13:45 05/26/18 13:44 Famotidine (Pepcid) 20 mg Q12HR ORAL 04/27/18 21:00 05/27/18 20:59 04/30/18 08:54 Gadobutrol (Gadavist) 7.5 mmol NOW PRN IV Radiology Procedure 04/28/18 17:45 04/30/18 23:59 Lactulose (Cephulac) 10 gm THREE TIMES A DAY ORAL 04/27/18 18:00 05/26/18 17:59 Lorazepam (Ativan 2mg/ml 1ml) 1 mg Q4H PRN IV agitation 04/27/18 13:45 05/03/18 13:44 04/30/18 13:29 Metoclopramide HCl (Reglan) 10 mg Q6H PRN IVP servere nausea 04/27/18 13:45 05/26/18 13:44 Metoprolol Tartrate (Lopressor) 25 mg Q12HR ORAL 04/27/18 21:00 05/27/18 20:59 04/29/18 21:04 Morphine Sulfate (Morphine Sulfate) 2 mg Q4H PRN IVP Severe Pain (Pain Scale 7-10) 04/27/18 13:45 05/03/18 13:44 Nitroglycerin (Ntg) 0.4 mg Q5M X 3 DOSES PRN SL Prn Chest Pain 04/27/18 13:45 05/26/18 13:44 Ondansetron HCl (Zofran) 4 mg Q6H PRN IVP Nausea & Vomiting 04/27/18 13:45 05/26/18 13:44 Oxymetazoline HCl (Afrin Nasal [place]) 2 spray TWICE A DAY PRN NASAL nasal congestion 04/28/18 10:15 05/27/18 17:59 Pantoprazole (Protonix) 40 mg DAILY ORAL 04/29/18 09:00 05/29/18 08:59 04/30/18 08:54 Polyethylene Glycol (Miralax) 17 gm HSPRN PRN ORAL Constipation 04/27/18 21:00 05/26/18 20:59 Quetiapine Fumarate (SEROquel) 25 mg EVERY 6 HOURS PRN ORAL For Anxiety 04/27/18 18:00 05/27/18 13:29 Rifaximin (Xifaxan) 550 mg EVERY 12 HOURS ORAL 04/27/18 21:00 05/03/18 20:59 04/30/18 08:54 Temazepam (Restoril) 15 mg HSPRN PRN ORAL Insomnia 04/27/18 21:00 05/03/18 20:59 04/29/18 00:00 Tramadol HCl (Ultram) 50 mg Q8H PRN ORAL For Pain 04/27/18 16:45 05/04/18 16:44 Valacyclovir HCl (Valtrex) 500 mg TWICE A DAY ORAL 04/27/18 18:00 05/27/18 17:59 04/30/18 08:54 Allergies: Coded Allergies: No Known Allergies (Unverified , 04/26/18) ROS Limited/Unobtainable: No Constitutional: Reports: no symptoms HEENT: Reports: no symptoms Cardiovascular: Reports: no symptoms Respiratory: Reports: no symptoms Gastrointestinal/Abdominal: Reports: no symptoms Genitourinary: Reports: no symptoms Subjective 67 YO M admitted with altered mental status. Now hepatic encephalopathy. Cover for Int [facility]-Dr Schmitz Less confused today. C/O back pain. Await cardiac clearance for endoscopy Objective Last Vital Signs Date Time Temp Pulse Resp B/P (MAP) Pulse Ox O2 Delivery O2 Flow Rate FiO2 04/30/18 16:00 97.2 82 18 121/17 (51) 96 97.2 04/30/18 09:39 Room Air 21 Laboratory Tests Test 04/30/18 05:30 White Blood Count 5.4 K/UL (4.8-10.8) Red Blood Count 3.39 M/UL (4.70-6.10) L Hemoglobin 11.5 G/DL (14.2-18.0) L Hematocrit 33.5 % (42.0-52.0) L Mean Corpuscular Volume 99 FL (80-99) Mean Corpuscular Hemoglobin 33.8 PG (27.0-31.0) H Mean Corpuscular Hemoglobin Concent 34.3 G/DL (32.0-36.0) Red Cell Distribution Width 12.7 % (11.6-14.8) Platelet Count 63 K/UL (150-450) L Mean Platelet Volume 9.3 FL (6.5-10.1) Neutrophils (%) (Auto) % (45.0-75.0) Lymphocytes (%) (Auto) % (20.0-45.0) Monocytes (%) (Auto) % (1.0-10.0) Eosinophils (%) (Auto) % (0.0-3.0) Basophils (%) (Auto) % (0.0-2.0) Differential Total Cells Counted 100 Neutrophils % (Manual) 75 % (45-75) Lymphocytes % (Manual) 10 % (20-45) L Monocytes % (Manual) 7 % (1-10) Eosinophils % (Manual) 8 % (0-3) H Basophils % (Manual) 0 % (0-2) Band Neutrophils 0 % (0-8) Platelet Estimate Decreased L Platelet Morphology Normal Macrocytosis 1+ Sodium Level 141 MMOL/L (136-145) Potassium Level 3.4 MMOL/L (3.5-5.1) L Chloride Level 108 MMOL/L (98-107) H Carbon Dioxide Level 29 MMOL/L (21-32) Anion Gap 4 mmol/L (5-15) L Blood Urea Nitrogen 9 mg/dL (7-18) Creatinine 0.8 MG/DL (0.55-1.30) Estimat Glomerular Filtration Rate > 60 mL/min (>60) Glucose Level 82 MG/DL (74-106) Calcium Level 8.7 MG/DL (8.5-10.1) Total Bilirubin 3.8 MG/DL (0.2-1.0) H Direct Bilirubin 0.8 MG/DL (0.0-0.3) H Aspartate Amino Transf (AST/SGOT) 106 U/L (15-37) H Alanine Aminotransferase (ALT/SGPT) 33 U/L (12-78) Alkaline Phosphatase 192 U/L (46-116) H Troponin I 0.507 ng/mL (0.000-0.056) Total Protein 5.7 G/DL (6.4-8.2) L Albumin 2.4 G/DL (3.4-5.0) L Globulin 3.3 g/dL Albumin/Globulin Ratio 0.7 (1.0-2.7) L HIV (1&2) Antibody Rapid Negative (NEGATIVE) Intake and Output 04/29/18 04/30/18 19:00 07:00 Intake Total 240 ml 360 ml Output Total 660 ml 600 ml Balance -420 ml -240 ml Intake Oral 240 ml 360 ml Output Urine Total 660 ml 600 ml # Voids 8 Objective General Appearance: WD/WN, no apparent distress, alert EENT: PERRL/EOMI, normal ENT inspection, TMs normal Neck: non-tender, normal alignment, supple, normal inspection Cardiovascular: normal peripheral pulses, normal rate, regular rhythm, no gallop/murmur, no JVD Respiratory/Chest: chest wall non-tender, lungs clear, normal breath sounds, no respiratory distress, no accessory muscle use Abdomen: normal bowel sounds, non tender, soft, no organomegaly, no mass Extremities: normal range of motion, non-tender Edema: trace edema 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 Will require cardiac clearance prior to endoscopy (3) Sludge in gallbladder (4) Pancreatitis (5) Hepatic encephalopathy Assessment & Plan: CT abdomen =No Masses. Resolving-see GI note (6) Altered mental status Assessment & Plan: Hepatic encephalopathy. Improving (7) Lumbar vertebral fracture Assessment & Plan: Await MRI Status: progressing Carlos Alberto Madrigal MD Apr 30, 2018 18:24
--- NOTE | 2018-04-30 19:37 | General Progress Note ---
Assessment/Plan Status: stable Assessment/Plan Encephalopathy due to [facility] -Seroquel prn -Provided ro/st Subjective Date patient seen: Apr 30, 2018 Neurologic/Psychiatric: Reports: anxiety, depressed, emotional problems Allergies: Coded Allergies: No Known Allergies (Unverified , 04/26/18) Objective Last 24 Hour Vital Signs Date Time Temp Pulse Resp B/P (MAP) Pulse Ox O2 Delivery O2 Flow Rate FiO2 04/30/18 16:00 97.2 82 18 121/17 (51) 96 97.2 04/30/18 12:00 98.1 84 20 128/69 (88) 96 98.1 04/30/18 09:39 83 18 Room Air 21 04/30/18 09:00 Room Air 04/30/18 08:51 80 110/61 04/30/18 08:00 97.5 80 18 110/61 (77) 96 97.5 04/30/18 04:00 96.7 80 18 112/58 (76) 96 96.7 04/30/18 00:00 98.0 74 18 125/73 (90) 97 98.0 04/29/18 21:04 72 126/77 04/29/18 20:53 Room Air 04/29/18 20:00 97.7 74 16 126/76 (93) 96 97.7 Intake and Output 04/29/18 04/30/18 19:00 07:00 Intake Total 240 ml 360 ml Output Total 660 ml 600 ml Balance -420 ml -240 ml Intake Oral 240 ml 360 ml Output Urine Total 660 ml 600 ml # Voids 8 Laboratory Tests 04/30/18 05:30: White Blood Count 5.4, Red Blood Count 3.39L, Hemoglobin 11.5L, Hematocrit 33.5L , Mean Corpuscular Volume 99, Mean Corpuscular Hemoglobin 33.8H, Mean Corpuscular Hemoglobin Concent 34.3, Red Cell Distribution Width 12.7, Platelet Count 63L, Mean Platelet Volume 9.3, Neutrophils (%) (Auto) , Lymphocytes (%) ( Auto) , Monocytes (%) (Auto) , Eosinophils (%) (Auto) , Basophils (%) (Auto) , Differential Total Cells Counted 100, Neutrophils % (Manual) 75, Lymphocytes % ( Manual) 10L, Monocytes % (Manual) 7, Eosinophils % (Manual) 8H, Basophils % ( Manual) 0, Band Neutrophils 0, Platelet Estimate DecreasedL, Platelet Morphology Normal, Macrocytosis 1+, Sodium Level 141, Potassium Level 3.4L, Chloride Level 108H, Carbon Dioxide Level 29, Anion Gap 4L, Blood Urea Nitrogen 9, Creatinine 0.8, Estimat Glomerular Filtration Rate > 60, Glucose Level 82, Calcium Level 8.7, Total Bilirubin 3.8H, Direct Bilirubin 0.8H, Aspartate Amino Transf (AST/SGOT) 106H, Alanine Aminotransferase (ALT/SGPT) 33, Alkaline Phosphatase 192H, Troponin I 0.507H, Total Protein 5.7L, Albumin 2.4L, Globulin 3.3, Albumin/Globulin Ratio 0.7L, HIV (1&2) Antibody Rapid Negative Height (Feet): 6 Height (Inches): 3.00 Weight (Pounds): 284 General Appearance: no apparent distress, alert Neurologic: oriented x 3, responsive, depressed affect Patel Garcia MD Apr 30, 2018 19:37
[2018-04-30 20:00] VITALS: BP 131/76
[2018-05-01] VITALS: BP 116/60
[2018-05-01 04:00] VITALS: BP 127/72
[2018-05-01 06:53] LABS: HEMOGLOBIN 11.8 G/DL (14.2-18.0); MEAN CORPUSCULAR VOLUME 98 FL (80-99); PLATELET COUNT 69 K/UL (150-450); RED BLOOD COUNT 3.47 M/UL (4.70-6.10); RED CELL DISTRIBUTION WIDTH 12.3 % (11.6-14.8); WHITE BLOOD COUNT 6.7 K/UL (4.8-10.8)
[2018-05-01 07:10] LABS: ALANINE AMINOTRANSFERASE 26 U/L (12-78); ALBUMIN 2.4 G/DL (3.4-5.0); ALKALINE PHOSPHATASE 199 U/L (46-116); ANION GAP 7 mmol/L (5-15); ASPARTATE AMINO TRANSFERASE 105 U/L (15-37); BILIRUBIN,TOTAL 3.7 MG/DL (0.2-1.0); BLOOD UREA NITROGEN 9 mg/dL (7-18); CALCIUM 8.9 MG/DL (8.5-10.1); CARBON DIOXIDE 26 MMOL/L (21-32); CHLORIDE 107 MMOL/L (98-107); CREATININE 0.8 MG/DL (0.55-1.30); POTASSIUM 3.6 MMOL/L (3.5-5.1); SODIUM 139 MMOL/L (136-145)
[2018-05-01 08:00] VITALS: BP 141/78
[2018-05-01] MEDS: Lactulose 10gm/15ml UDC ORAL SCH ×3 (09:00→18:00)
--- NOTE | 2018-05-01 09:43 | Diagnostic Imaging Report ---
APPROVED REPORT CPT Code: 30056 Present Symptoms Comments: BILATERAL LEGS PAIN. BILATERAL: Imaging reveals a patent deep venous system bilaterally. There is no evidence of thrombus within the femoral, popliteal or tibial segments. The greater saphenous veins are also within normal limits. Doppler indicates normal spontaneous flow within these segments.
[2018-05-01] MEDS: valACYclovir HCL 500mg tab ORAL SCH ×2 (09:59→18:08)
[2018-05-01] MEDS: Metoprolol 25mg tab ORAL SCH ×2 (09:59→21:57)
[2018-05-01 12:00] VITALS: BP 117/65
--- NOTE | 2018-05-01 12:31 | Pulmonology Progress Note ---
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 Subjective ROS Limited/Unobtainable: No Constitutional: Reports: no symptoms HEENT: Repors: no symptoms Respiratory: Reports: no symptoms Allergies: Coded Allergies: No Known Allergies (Unverified , 04/26/18) Objective Last 24 Hour Vital Signs Date Time Temp Pulse Resp B/P (MAP) Pulse Ox O2 Delivery O2 Flow Rate FiO2 05/01/18 09:59 77 141/78 05/01/18 09:00 Room Air 05/01/18 08:00 97.7 77 20 141/78 (99) 97 97.7 05/01/18 07:53 80 18 Room Air 21 05/01/18 04:00 97.5 70 20 127/72 (90) 97 97.5 05/01/18 00:00 97.2 74 20 116/60 (78) 97 97.2 04/30/18 21:00 Room Air 04/30/18 20:59 85 131/76 04/30/18 20:00 97.6 85 20 131/76 (94) 96 97.6 04/30/18 19:58 77 18 Room Air 21 04/30/18 16:00 97.2 82 18 121/17 (51) 96 97.2 Intake and Output 04/30/18 05/01/18 19:00 07:00 Intake Total 1100 ml Balance 1100 ml Intake Oral 1100 ml # Voids 4 5 General Appearance: WD/WN, no acute distress HEENT: normocephalic, atraumatic Respiratory/Chest: chest wall non-tender, lungs clear Cardiovascular: normal peripheral pulses, normal rate Abdomen: normal bowel sounds, soft, non tender Genitourinary: normal external genitalia Extremities: no cyanosis Skin: no rash Laboratory Tests 05/01/18 06:10: White Blood Count 6.7, Red Blood Count 3.47L, Hemoglobin 11.8L, Hematocrit 34.0L , Mean Corpuscular Volume 98, Mean Corpuscular Hemoglobin 34.2H, Mean Corpuscular Hemoglobin Concent 34.9, Red Cell Distribution Width 12.3, Platelet Count 69L, Mean Platelet Volume 8.2, Neutrophils (%) (Auto) , Lymphocytes (%) ( Auto) , Monocytes (%) (Auto) , Eosinophils (%) (Auto) , Basophils (%) (Auto) , Differential Total Cells Counted 100, Neutrophils % (Manual) 64, Lymphocytes % ( Manual) 17L, Monocytes % (Manual) 9, Eosinophils % (Manual) 10H, Basophils % ( Manual) 0, Band Neutrophils 0, Platelet Estimate DecreasedL, Platelet Morphology Normal, Anisocytosis 1+, Sodium Level 139, Potassium Level 3.6, Chloride Level 107, Carbon Dioxide Level 26, Anion Gap 7, Blood Urea Nitrogen 9 , Creatinine 0.8, Estimat Glomerular Filtration Rate > 60, Glucose Level 100, Calcium Level 8.9, Total Bilirubin 3.7H, Direct Bilirubin 1.0H, Aspartate Amino Transf (AST/SGOT) 105H, Alanine Aminotransferase (ALT/SGPT) 26, Alkaline Phosphatase 199H, Ammonia 124H, Total Protein 5.8L, Albumin 2.4L, Globulin 3.4 Current Medications Medications (Trade) Dose Ordered Sig/Elsy Route PRN Reason Start Time Stop Time Status Last Admin Dose Admin Al Hydroxide/Mg Hydroxide (Mylanta II) 30 ml Q6H PRN ORAL dyspepsia 04/27/18 13:45 05/26/18 13:44 Albuterol/ Ipratropium (Albuterol/ Ipratropium) 3 ml Q4H PRN HHN Shortness of Breath 04/28/18 08:15 05/03/18 08:14 Benzonatate (Tessalon Perles) 200 mg THREE TIMES A DAY PRN ORAL For Cough 04/27/18 16:45 05/27/18 16:44 Dextrose (Dextrose 50%) 25 ml PRN IV hypoglycemia 04/27/18 13:45 05/26/18 13:59 Dextrose (Dextrose 50%) 50 ml PRN IV hypoglycemia 04/27/18 13:45 05/26/18 13:59 Diphenhydramine HCl (Benadryl) 25 mg Q6H PRN ORAL Itching/Pruritis 04/27/18 13:45 05/26/18 13:44 Famotidine (Pepcid) 20 mg Q12HR ORAL 04/27/18 21:00 05/27/18 20:59 05/01/18 09:59 Lactulose (Cephulac) 10 gm THREE TIMES A DAY ORAL 04/27/18 18:00 05/26/18 17:59 Lorazepam (Ativan 2mg/ml 1ml) 1 mg Q4H PRN IV agitation 04/27/18 13:45 05/03/18 13:44 04/30/18 20:59 Metoclopramide HCl (Reglan) 10 mg Q6H PRN IVP servere nausea 04/27/18 13:45 05/26/18 13:44 Metoprolol Tartrate (Lopressor) 25 mg Q12HR ORAL 04/27/18 21:00 05/27/18 20:59 05/01/18 09:59 Morphine Sulfate (Morphine Sulfate) 2 mg Q4H PRN IVP Severe Pain (Pain Scale 7-10) 04/27/18 13:45 05/03/18 13:44 Nitroglycerin (Ntg) 0.4 mg Q5M X 3 DOSES PRN SL Prn Chest Pain 04/27/18 13:45 05/26/18 13:44 Ondansetron HCl (Zofran) 4 mg Q6H PRN IVP Nausea & Vomiting 04/27/18 13:45 05/26/18 13:44 Oxymetazoline HCl (Afrin Nasal [place]) 2 spray TWICE A DAY PRN NASAL nasal congestion 04/28/18 10:15 05/27/18 17:59 Pantoprazole (Protonix) 40 mg DAILY ORAL 04/29/18 09:00 05/29/18 08:59 05/01/18 09:59 Polyethylene Glycol (Miralax) 17 gm HSPRN PRN ORAL Constipation 04/27/18 21:00 05/26/18 20:59 Quetiapine Fumarate (SEROquel) 25 mg EVERY 6 HOURS PRN ORAL For Anxiety 04/27/18 18:00 05/27/18 13:29 Rifaximin (Xifaxan) 550 mg EVERY 12 HOURS ORAL 04/27/18 21:00 05/03/18 20:59 05/01/18 09:59 Temazepam (Restoril) 15 mg HSPRN PRN ORAL Insomnia 04/27/18 21:00 05/03/18 20:59 04/29/18 00:00 Tramadol HCl (Ultram) 50 mg Q8H PRN ORAL For Pain 04/27/18 16:45 05/04/18 16:44 Valacyclovir HCl (Valtrex) 500 mg TWICE A DAY ORAL 04/27/18 18:00 05/27/18 17:59 05/01/18 09:59 Mira Coates MD May 01, 2018 12:31
--- NOTE | 2018-05-01 15:06 | General Progress Note ---
Assessment/Plan Assessment/Plan ASSESSMENT AND RECOMMENDATIONS: 1. Metastatic ocular melanoma. At this time is in remission per the patient. is s/p microwaev ablation. GI service consulted and CT scan of the abdom/pelvis/ chest shows potential mass in pylorus/stomach --> needs outpatient onc followup, wants to go to [facility] Dr. Garcia and Dr. Wick --> In addition, imaging showed Suspicion of cirrhosis/chronic liver disease. Stigmata of portal hypertension demonstrated including splenomegaly and probable recanalization of the umbilical vein --> CT abdomen reviewed, questionable mass in gastric output area 2. Thrombocytopenia, likely secondary to underlying liver disease. Closely monitor for improvement. Hepatitis panel is negative --> hiv and hepatitis is negative --> no bleeding is noted 3. Anemia due to underlying chronic disease. Continue to closely monitor. Anemia panel has been reviewed, has anemia due to underlying chronic disease. --> panel has been reviewed 4. Coagulopathy, likely secondary to disease of the liver --> vit K prn basis sq 5. Hypoproteinemia, protein/calornic malnutrition. Further monitor for improvement, may need Ensure and increased p.o. intake. ==> recommend nutrition eval followup 6. Hypokalemia. Replete potassium. 7. Hyperbilirubinemia as per Gi management --> ratio of uncong/claribel appears same Subjective Constitutional: Denies: no symptoms, chills, diaphoresis, fever, malaise, weakness, other HEENT: Denies: no symptoms, eye pain, blurred vision, tearing, double vision, ear pain, ear discharge, nose pain, nose congestion, throat pain, throat swelling, mouth pain, mouth swelling, other Cardiovascular: Denies: no symptoms, chest pain, edema, irregular heart rate, lightheadedness, palpitations, syncope, other Respiratory: Denies: no symptoms, cough, orthopnea, shortness of breath, SOB with excertion, SOB at rest, sputum, stridor, wheezing, other Gastrointestinal/Abdominal: Denies: no symptoms, abdomen distended, abdominal pain, black stools, tarry stools, blood in stool, constipated, diarrhea, difficulty swallowing, nausea, poor appetite, poor fluid intake, rectal bleeding , vomiting, other Genitourinary: Denies: no symptoms, burning, discharge, frequency, flank pain, hematuria, incontinence, pain, urgency, other Neurologic/Psychiatric: Denies: no symptoms, anxiety, depressed, emotional problems, headache, numbness, paresthesia, pre-existing deficit, seizure, tingling, tremors, weakness, other Allergies: Coded Allergies: No Known Allergies (Unverified , 04/26/18) Subjective no fevers or chills, no sweats Objective Last 24 Hour Vital Signs Date Time Temp Pulse Resp B/P (MAP) Pulse Ox O2 Delivery O2 Flow Rate FiO2 05/01/18 12:00 97.7 71 20 117/65 (82) 97 97.7 05/01/18 09:59 77 141/78 05/01/18 09:00 Room Air 05/01/18 08:00 97.7 77 20 141/78 (99) 97 97.7 05/01/18 07:53 80 18 Room Air 21 05/01/18 04:00 97.5 70 20 127/72 (90) 97 97.5 05/01/18 00:00 97.2 74 20 116/60 (78) 97 97.2 04/30/18 21:00 Room Air 04/30/18 20:59 85 131/76 04/30/18 20:00 97.6 85 20 131/76 (94) 96 97.6 04/30/18 19:58 77 18 Room Air 21 04/30/18 16:00 97.2 82 18 121/17 (51) 96 97.2 Intake and Output 04/30/18 05/01/18 19:00 07:00 Intake Total 1100 ml Balance 1100 ml Intake Oral 1100 ml # Voids 4 5 Laboratory Tests 05/01/18 06:10: White Blood Count 6.7, Red Blood Count 3.47L, Hemoglobin 11.8L, Hematocrit 34.0L , Mean Corpuscular Volume 98, Mean Corpuscular Hemoglobin 34.2H, Mean Corpuscular Hemoglobin Concent 34.9, Red Cell Distribution Width 12.3, Platelet Count 69L, Mean Platelet Volume 8.2, Neutrophils (%) (Auto) , Lymphocytes (%) ( Auto) , Monocytes (%) (Auto) , Eosinophils (%) (Auto) , Basophils (%) (Auto) , Differential Total Cells Counted 100, Neutrophils % (Manual) 64, Lymphocytes % ( Manual) 17L, Monocytes % (Manual) 9, Eosinophils % (Manual) 10H, Basophils % ( Manual) 0, Band Neutrophils 0, Platelet Estimate DecreasedL, Platelet Morphology Normal, Anisocytosis 1+, Sodium Level 139, Potassium Level 3.6, Chloride Level 107, Carbon Dioxide Level 26, Anion Gap 7, Blood Urea Nitrogen 9 , Creatinine 0.8, Estimat Glomerular Filtration Rate > 60, Glucose Level 100, Calcium Level 8.9, Total Bilirubin 3.7H, Direct Bilirubin 1.0H, Aspartate Amino Transf (AST/SGOT) 105H, Alanine Aminotransferase (ALT/SGPT) 26, Alkaline Phosphatase 199H, Ammonia 124H, Total Protein 5.8L, Albumin 2.4L, Globulin 3.4 Height (Feet): 6 Height (Inches): 3.00 Weight (Pounds): 284 General Appearance: alert EENT: TMs normal Neck: normal alignment Cardiovascular: regular rhythm Respiratory/Chest: normal breath sounds Abdomen: non tender Extremities: non-tender Edema: no edema noted Leg (L), no edema noted Leg (R) Edema: mild edema Neurologic: alert Skin: warm/dry Tyler Wagner MD May 01, 2018 15:06
--- NOTE | 2018-05-01 15:34 | GI Progress Note ---
Assessment/Plan Problems: (1) Metastatic melanoma ICD Codes: C79.9 - Secondary malignant neoplasm of unspecified site SNOMED: 956639981 (2) Liver disease ICD Codes: K76.9 - Liver disease, unspecified SNOMED: 969622154 (3) Hyperbilirubinemia ICD Codes: E80.6 - Other disorders of bilirubin metabolism SNOMED: 65392310 (4) Altered mental status ICD Codes: R41.82 - Altered mental status, unspecified SNOMED: 580163770 Qualifiers: Qualified Codes: R40.3 - Persistent vegetative state Status: unchanged Status Narrative Discussed with Dr. Pena. Assessment/Plan abdominal U/S reviewed, see full report >> - Hepatosplenomegaly with fatty liver. - No definite gallstones. Suspected tumefactive sludge within the gallbladder. - 5 cm cyst right kidney. - Poor demonstration of the retroperitoneal structures. OB stool positive >> stable H&H prajapati CT noted, see full report >>In the region of the head of the pancreas, there is peripancreatic soft tissue stranding suggestive of pancreatitis. Differential diagnosis for this includes peptic ulcer disease. There is also prominence of the pylorus and antrum of the stomach with thickened wall versus mass. cirrhosis CEA, AFP >> WNL tentatively schedule for EGD tomorrow to evaluate anemia, wall thickening vs mass, and cirrhosis >> awaiting cardiac clearance low dose lactulose, cont Xifaxan monitor H&H, prn transfusions bowel regime ppi fu labs, MARK ANTHONY, AMA, SMA, Anti-trypsin, IgG, Ceruloplasmin The patient was seen and examined at bedside and all new and available data was reviewed in the patients chart. I agree with the above findings, impression and plan. (Patient seen earlier today. Signature stamp does not reflect patient encounter time.). - Sanjeev Pena MD Subjective Subjective refusing lactulose Objective Last 24 Hour Vital Signs Date Time Temp Pulse Resp B/P (MAP) Pulse Ox O2 Delivery O2 Flow Rate FiO2 05/01/18 12:00 97.7 71 20 117/65 (82) 97 97.7 05/01/18 09:59 77 141/78 05/01/18 09:00 Room Air 05/01/18 08:00 97.7 77 20 141/78 (99) 97 97.7 05/01/18 07:53 80 18 Room Air 21 05/01/18 04:00 97.5 70 20 127/72 (90) 97 97.5 05/01/18 00:00 97.2 74 20 116/60 (78) 97 97.2 04/30/18 21:00 Room Air 04/30/18 20:59 85 131/76 04/30/18 20:00 97.6 85 20 131/76 (94) 96 97.6 04/30/18 19:58 77 18 Room Air 21 04/30/18 16:00 97.2 82 18 121/17 (51) 96 97.2 Intake and Output 04/30/18 05/01/18 19:00 07:00 Intake Total 1100 ml Balance 1100 ml Intake Oral 1100 ml # Voids 4 5 Laboratory Tests Test 05/01/18 06:10 White Blood Count 6.7 K/UL (4.8-10.8) Red Blood Count 3.47 M/UL (4.70-6.10) L Hemoglobin 11.8 G/DL (14.2-18.0) L Hematocrit 34.0 % (42.0-52.0) L Mean Corpuscular Volume 98 FL (80-99) Mean Corpuscular Hemoglobin 34.2 PG (27.0-31.0) H Mean Corpuscular Hemoglobin Concent 34.9 G/DL (32.0-36.0) Red Cell Distribution Width 12.3 % (11.6-14.8) Platelet Count 69 K/UL (150-450) L Mean Platelet Volume 8.2 FL (6.5-10.1) Neutrophils (%) (Auto) % (45.0-75.0) Lymphocytes (%) (Auto) % (20.0-45.0) Monocytes (%) (Auto) % (1.0-10.0) Eosinophils (%) (Auto) % (0.0-3.0) Basophils (%) (Auto) % (0.0-2.0) Differential Total Cells Counted 100 Neutrophils % (Manual) 64 % (45-75) Lymphocytes % (Manual) 17 % (20-45) L Monocytes % (Manual) 9 % (1-10) Eosinophils % (Manual) 10 % (0-3) H Basophils % (Manual) 0 % (0-2) Band Neutrophils 0 % (0-8) Platelet Estimate Decreased L Platelet Morphology Normal Anisocytosis 1+ Sodium Level 139 MMOL/L (136-145) Potassium Level 3.6 MMOL/L (3.5-5.1) Chloride Level 107 MMOL/L (98-107) Carbon Dioxide Level 26 MMOL/L (21-32) Anion Gap 7 mmol/L (5-15) Blood Urea Nitrogen 9 mg/dL (7-18) Creatinine 0.8 MG/DL (0.55-1.30) Estimat Glomerular Filtration Rate > 60 mL/min (>60) Glucose Level 100 MG/DL (74-106) Calcium Level 8.9 MG/DL (8.5-10.1) Total Bilirubin 3.7 MG/DL (0.2-1.0) H Direct Bilirubin 1.0 MG/DL (0.0-0.3) H Aspartate Amino Transf (AST/SGOT) 105 U/L (15-37) H Alanine Aminotransferase (ALT/SGPT) 26 U/L (12-78) Alkaline Phosphatase 199 U/L (46-116) H Ammonia 124 umol/L (11-32) H Total Protein 5.8 G/DL (6.4-8.2) L Albumin 2.4 G/DL (3.4-5.0) L Globulin 3.4 g/dL Height (Feet): 6 Height (Inches): 3.00 Weight (Pounds): 284 General Appearance: WD/WN, no apparent distress, alert Cardiovascular: normal rate Respiratory/Chest: normal breath sounds, no respiratory distress Abdominal Exam: normal bowel sounds, non tender, soft Extremities: normal range of motion, non-tender Lali Gaytan [employer]APE[employer] LEAD May 01, 2018 15:34
--- NOTE | 2018-05-01 15:47 | Cardiac Electrophysiology PN ---
Subjective Subjective [id number] Objective Last 24 Hour Vital Signs Date Time Temp Pulse Resp B/P (MAP) Pulse Ox O2 Delivery O2 Flow Rate FiO2 05/01/18 12:00 97.7 71 20 117/65 (82) 97 97.7 05/01/18 09:59 77 141/78 05/01/18 09:00 Room Air 05/01/18 08:00 97.7 77 20 141/78 (99) 97 97.7 05/01/18 07:53 80 18 Room Air 21 05/01/18 04:00 97.5 70 20 127/72 (90) 97 97.5 05/01/18 00:00 97.2 74 20 116/60 (78) 97 97.2 04/30/18 21:00 Room Air 04/30/18 20:59 85 131/76 04/30/18 20:00 97.6 85 20 131/76 (94) 96 97.6 04/30/18 19:58 77 18 Room Air 21 04/30/18 16:00 97.2 82 18 121/17 (51) 96 97.2 Intake and Output 04/30/18 05/01/18 19:00 07:00 Intake Total 1100 ml Balance 1100 ml Intake Oral 1100 ml # Voids 4 5 Laboratory Tests Test 05/01/18 06:10 White Blood Count 6.7 K/UL (4.8-10.8) Red Blood Count 3.47 M/UL (4.70-6.10) L Hemoglobin 11.8 G/DL (14.2-18.0) L Hematocrit 34.0 % (42.0-52.0) L Mean Corpuscular Volume 98 FL (80-99) Mean Corpuscular Hemoglobin 34.2 PG (27.0-31.0) H Mean Corpuscular Hemoglobin Concent 34.9 G/DL (32.0-36.0) Red Cell Distribution Width 12.3 % (11.6-14.8) Platelet Count 69 K/UL (150-450) L Mean Platelet Volume 8.2 FL (6.5-10.1) Neutrophils (%) (Auto) % (45.0-75.0) Lymphocytes (%) (Auto) % (20.0-45.0) Monocytes (%) (Auto) % (1.0-10.0) Eosinophils (%) (Auto) % (0.0-3.0) Basophils (%) (Auto) % (0.0-2.0) Differential Total Cells Counted 100 Neutrophils % (Manual) 64 % (45-75) Lymphocytes % (Manual) 17 % (20-45) L Monocytes % (Manual) 9 % (1-10) Eosinophils % (Manual) 10 % (0-3) H Basophils % (Manual) 0 % (0-2) Band Neutrophils 0 % (0-8) Platelet Estimate Decreased L Platelet Morphology Normal Anisocytosis 1+ Sodium Level 139 MMOL/L (136-145) Potassium Level 3.6 MMOL/L (3.5-5.1) Chloride Level 107 MMOL/L (98-107) Carbon Dioxide Level 26 MMOL/L (21-32) Anion Gap 7 mmol/L (5-15) Blood Urea Nitrogen 9 mg/dL (7-18) Creatinine 0.8 MG/DL (0.55-1.30) Estimat Glomerular Filtration Rate > 60 mL/min (>60) Glucose Level 100 MG/DL (74-106) Calcium Level 8.9 MG/DL (8.5-10.1) Total Bilirubin 3.7 MG/DL (0.2-1.0) H Direct Bilirubin 1.0 MG/DL (0.0-0.3) H Aspartate Amino Transf (AST/SGOT) 105 U/L (15-37) H Alanine Aminotransferase (ALT/SGPT) 26 U/L (12-78) Alkaline Phosphatase 199 U/L (46-116) H Ammonia 124 umol/L (11-32) H Total Protein 5.8 G/DL (6.4-8.2) L Albumin 2.4 G/DL (3.4-5.0) L Globulin 3.4 g/dL Jaison Zuñiga MD May 01, 2018 15:47
[2018-05-01 16:00] VITALS: BP 137/79
--- NOTE | 2018-05-01 17:50 | Internal Med Progress Note ---
Subjective Date of Service: May 01, 2018 Physician Name KaitlinCarlos Alberto Attending Physician Josh Schmitz MD Current Medications Medications (Trade) Dose Ordered Sig/Elsy Route PRN Reason Start Time Stop Time Status Last Admin Dose Admin Al Hydroxide/Mg Hydroxide (Mylanta II) 30 ml Q6H PRN ORAL dyspepsia 04/27/18 13:45 05/26/18 13:44 Albuterol/ Ipratropium (Albuterol/ Ipratropium) 3 ml Q4H PRN HHN Shortness of Breath 04/28/18 08:15 05/03/18 08:14 Benzonatate (Tessalon Perles) 200 mg THREE TIMES A DAY PRN ORAL For Cough 04/27/18 16:45 05/27/18 16:44 Dextrose (Dextrose 50%) 25 ml PRN IV hypoglycemia 04/27/18 13:45 05/26/18 13:59 Dextrose (Dextrose 50%) 50 ml PRN IV hypoglycemia 04/27/18 13:45 05/26/18 13:59 Diphenhydramine HCl (Benadryl) 25 mg Q6H PRN ORAL Itching/Pruritis 04/27/18 13:45 05/26/18 13:44 Famotidine (Pepcid) 20 mg Q12HR ORAL 04/27/18 21:00 05/27/18 20:59 05/01/18 09:59 Lactulose (Cephulac) 10 gm THREE TIMES A DAY ORAL 04/27/18 18:00 05/26/18 17:59 Lorazepam (Ativan 2mg/ml 1ml) 1 mg Q4H PRN IV agitation 04/27/18 13:45 05/03/18 13:44 04/30/18 20:59 Metoclopramide HCl (Reglan) 10 mg Q6H PRN IVP servere nausea 04/27/18 13:45 05/26/18 13:44 Metoprolol Tartrate (Lopressor) 25 mg Q12HR ORAL 04/27/18 21:00 05/27/18 20:59 05/01/18 09:59 Morphine Sulfate (Morphine Sulfate) 2 mg Q4H PRN IVP Severe Pain (Pain Scale 7-10) 04/27/18 13:45 05/03/18 13:44 Nitroglycerin (Ntg) 0.4 mg Q5M X 3 DOSES PRN SL Prn Chest Pain 04/27/18 13:45 05/26/18 13:44 Ondansetron HCl (Zofran) 4 mg Q6H PRN IVP Nausea & Vomiting 04/27/18 13:45 05/26/18 13:44 Oxymetazoline HCl (Afrin Nasal [place]) 2 spray TWICE A DAY PRN NASAL nasal congestion 04/28/18 10:15 05/27/18 17:59 Pantoprazole (Protonix) 40 mg DAILY ORAL 04/29/18 09:00 05/29/18 08:59 05/01/18 09:59 Polyethylene Glycol (Miralax) 17 gm HSPRN PRN ORAL Constipation 04/27/18 21:00 05/26/18 20:59 Quetiapine Fumarate (SEROquel) 25 mg EVERY 6 HOURS PRN ORAL For Anxiety 04/27/18 18:00 05/27/18 13:29 Rifaximin (Xifaxan) 550 mg EVERY 12 HOURS ORAL 04/27/18 21:00 05/03/18 20:59 05/01/18 09:59 Temazepam (Restoril) 15 mg HSPRN PRN ORAL Insomnia 04/27/18 21:00 05/03/18 20:59 04/29/18 00:00 Tramadol HCl (Ultram) 50 mg Q8H PRN ORAL For Pain 04/27/18 16:45 05/04/18 16:44 Valacyclovir HCl (Valtrex) 500 mg TWICE A DAY ORAL 04/27/18 18:00 05/27/18 17:59 05/01/18 09:59 Allergies: Coded Allergies: No Known Allergies (Unverified , 04/26/18) ROS Limited/Unobtainable: No Constitutional: Reports: no symptoms HEENT: Reports: no symptoms Cardiovascular: Reports: no symptoms Respiratory: Reports: no symptoms Gastrointestinal/Abdominal: Reports: no symptoms Genitourinary: Reports: no symptoms Neurologic/Psychiatric: Reports: no symptoms Subjective 67 YO M admitted with altered mental status. Now hepatic encephalopathy. Cover for [facility]-Dr Schmitz Less confused today. C/O back pain. Await cardiac clearance for endoscopy Objective Last Vital Signs Date Time Temp Pulse Resp B/P (MAP) Pulse Ox O2 Delivery O2 Flow Rate FiO2 05/01/18 16:00 98.2 72 20 137/79 (98) 96 98.2 05/01/18 09:00 Room Air 05/01/18 07:53 21 Laboratory Tests Test 05/01/18 06:10 White Blood Count 6.7 K/UL (4.8-10.8) Red Blood Count 3.47 M/UL (4.70-6.10) L Hemoglobin 11.8 G/DL (14.2-18.0) L Hematocrit 34.0 % (42.0-52.0) L Mean Corpuscular Volume 98 FL (80-99) Mean Corpuscular Hemoglobin 34.2 PG (27.0-31.0) H Mean Corpuscular Hemoglobin Concent 34.9 G/DL (32.0-36.0) Red Cell Distribution Width 12.3 % (11.6-14.8) Platelet Count 69 K/UL (150-450) L Mean Platelet Volume 8.2 FL (6.5-10.1) Neutrophils (%) (Auto) % (45.0-75.0) Lymphocytes (%) (Auto) % (20.0-45.0) Monocytes (%) (Auto) % (1.0-10.0) Eosinophils (%) (Auto) % (0.0-3.0) Basophils (%) (Auto) % (0.0-2.0) Differential Total Cells Counted 100 Neutrophils % (Manual) 64 % (45-75) Lymphocytes % (Manual) 17 % (20-45) L Monocytes % (Manual) 9 % (1-10) Eosinophils % (Manual) 10 % (0-3) H Basophils % (Manual) 0 % (0-2) Band Neutrophils 0 % (0-8) Platelet Estimate Decreased L Platelet Morphology Normal Anisocytosis 1+ Sodium Level 139 MMOL/L (136-145) Potassium Level 3.6 MMOL/L (3.5-5.1) Chloride Level 107 MMOL/L (98-107) Carbon Dioxide Level 26 MMOL/L (21-32) Anion Gap 7 mmol/L (5-15) Blood Urea Nitrogen 9 mg/dL (7-18) Creatinine 0.8 MG/DL (0.55-1.30) Estimat Glomerular Filtration Rate > 60 mL/min (>60) Glucose Level 100 MG/DL (74-106) Calcium Level 8.9 MG/DL (8.5-10.1) Total Bilirubin 3.7 MG/DL (0.2-1.0) H Direct Bilirubin 1.0 MG/DL (0.0-0.3) H Aspartate Amino Transf (AST/SGOT) 105 U/L (15-37) H Alanine Aminotransferase (ALT/SGPT) 26 U/L (12-78) Alkaline Phosphatase 199 U/L (46-116) H Ammonia 124 umol/L (11-32) H Total Protein 5.8 G/DL (6.4-8.2) L Albumin 2.4 G/DL (3.4-5.0) L Globulin 3.4 g/dL Intake and Output 04/30/18 05/01/18 19:00 07:00 Intake Total 1100 ml Balance 1100 ml Intake Oral 1100 ml # Voids 4 5 Objective General Appearance: WD/WN, no apparent distress, alert EENT: PERRL/EOMI, normal ENT inspection, TMs normal Neck: non-tender, normal alignment, supple, normal inspection Cardiovascular: normal peripheral pulses, normal rate, regular rhythm, no gallop/murmur, no JVD Respiratory/Chest: chest wall non-tender, lungs clear, normal breath sounds, no respiratory distress, no accessory muscle use Abdomen: normal bowel sounds, non tender, soft, no organomegaly, no mass Extremities: normal range of motion, non-tender Edema: trace edema Neurologic: electric range servicer II-XII grossly normal, no motor/sensory deficits Skin: normal pigmentation, warm/dry Assessment/Plan Problem List: (1) History of melanoma Assessment & Plan: left eye; in remission-see onc note (2) Gastric mass Assessment & Plan: See CT abdomen. Will require cardiac clearance prior to endoscopy (3) Sludge in gallbladder (4) Pancreatitis (5) Hepatic encephalopathy Assessment & Plan: CT abdomen =No Masses. Resolving-see GI note (6) Altered mental status Assessment & Plan: Hepatic encephalopathy. Improving (7) Lumbar vertebral fracture Assessment & Plan: Await MRI (8) Elevated troponin Assessment & Plan: see cardiology note Status: progressing Carlos Alberto Madrigal MD May 01, 2018 17:50
[2018-05-01 19:06] VITALS: BP 122/55
--- NOTE | 2018-05-01 19:32 | General Progress Note ---
Assessment/Plan Status: stable, progressing Assessment/Plan Encephalopathy due to [facility] -Seroquel prn -Provided ro/st Subjective Date patient seen: May 01, 2018 Neurologic/Psychiatric: Reports: anxiety, depressed, emotional problems Allergies: Coded Allergies: No Known Allergies (Unverified , 04/26/18) Objective Last 24 Hour Vital Signs Date Time Temp Pulse Resp B/P (MAP) Pulse Ox O2 Delivery O2 Flow Rate FiO2 05/01/18 19:06 98.2 80 19 122/55 (77) 96 98.2 05/01/18 16:00 98.2 72 20 137/79 (98) 96 98.2 05/01/18 12:00 97.7 71 20 117/65 (82) 97 97.7 05/01/18 09:59 77 141/78 05/01/18 09:00 Room Air 05/01/18 08:00 97.7 77 20 141/78 (99) 97 97.7 05/01/18 07:53 80 18 Room Air 21 05/01/18 04:00 97.5 70 20 127/72 (90) 97 97.5 05/01/18 00:00 97.2 74 20 116/60 (78) 97 97.2 04/30/18 21:00 Room Air 04/30/18 20:59 85 131/76 04/30/18 20:00 97.6 85 20 131/76 (94) 96 97.6 04/30/18 19:58 77 18 Room Air 21 Intake and Output 04/30/18 05/01/18 19:00 07:00 Intake Total 1100 ml Balance 1100 ml Intake Oral 1100 ml # Voids 4 5 Laboratory Tests 05/01/18 06:10: White Blood Count 6.7, Red Blood Count 3.47L, Hemoglobin 11.8L, Hematocrit 34.0L , Mean Corpuscular Volume 98, Mean Corpuscular Hemoglobin 34.2H, Mean Corpuscular Hemoglobin Concent 34.9, Red Cell Distribution Width 12.3, Platelet Count 69L, Mean Platelet Volume 8.2, Neutrophils (%) (Auto) , Lymphocytes (%) ( Auto) , Monocytes (%) (Auto) , Eosinophils (%) (Auto) , Basophils (%) (Auto) , Differential Total Cells Counted 100, Neutrophils % (Manual) 64, Lymphocytes % ( Manual) 17L, Monocytes % (Manual) 9, Eosinophils % (Manual) 10H, Basophils % ( Manual) 0, Band Neutrophils 0, Platelet Estimate DecreasedL, Platelet Morphology Normal, Anisocytosis 1+, Sodium Level 139, Potassium Level 3.6, Chloride Level 107, Carbon Dioxide Level 26, Anion Gap 7, Blood Urea Nitrogen 9 , Creatinine 0.8, Estimat Glomerular Filtration Rate > 60, Glucose Level 100, Calcium Level 8.9, Total Bilirubin 3.7H, Direct Bilirubin 1.0H, Aspartate Amino Transf (AST/SGOT) 105H, Alanine Aminotransferase (ALT/SGPT) 26, Alkaline Phosphatase 199H, Ammonia 124H, Total Protein 5.8L, Albumin 2.4L, Globulin 3.4 Height (Feet): 6 Height (Inches): 3.00 Weight (Pounds): 284 General Appearance: no apparent distress, alert Neurologic: oriented x 3, depressed affect Patel Garcia MD May 01, 2018 19:32
--- NOTE | 2018-05-01 21:00 | Consultation ---
DATE OF CONSULTATION: 05/01/2018 CARDIOLOGY CONSULTATION CONSULTING PHYSICIAN: Jaison Zuñiga M.D. REFERRING PHYSICIAN: Tyler Wagner M.D. REASON FOR CONSULTATION: Preoperative clearance prior to EGD. 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 Most recently had remission, now was treating at [place], [place] at [facility]. The patient has been in remission, but receiving immunotherapy. The patient also was admitted and was evaluated by Oncology and GI and was found to have metastatic liver disease and melanoma of the eye. The patient is scheduled for an EGD and a Cardiology consultation was requested for further evaluation. REVIEW OF SYSTEMS: Negative other than what was mentioned in the history of present illness. PAST MEDICAL HISTORY: As mentioned above. FAMILY HISTORY: Noncontributory. SOCIAL HISTORY: He is originally from [place] and does not smoke or drink alcohol. He has recently. PHYSICAL EXAMINATION: VITAL SIGNS: Blood pressure of 172/65, pulse 71, respirations 18, and temperature 97.7 degrees. HEAD AND NECK: No JVD. LUNGS: Clear. CARDIOVASCULAR: Regular S1 and S2 with no gallop. ABDOMEN: Distended. EXTREMITIES: There is 2+ pitting edema. LABORATORY AND DIAGNOSTIC DATA: His EKG shows sinus rhythm with first-degree AV block. Lab, white count 6.7, hemoglobin 11.8, hematocrit 34 and platelet count is 69. Sodium is 139, potassium 3.6, BUN of 9, creatinine 0.8, and glucose of 100. Total bilirubin is 3.7. Alkaline phosphatase is 199. Troponin 0.507. ASSESSMENT AND PLAN: 1. Troponin elevation. The patient's initial troponin was 0.502 and second troponin is 0.507, that was identical. The patient does not have any chest pain and EKG does not show any ischemic changes. Initial troponin on 04/26/2018 was also 0.55. The patient does not have any chest pain and EKG did not show any ischemic changes. and nonspecific. The patient was ordered metoprolol 25 mg b.i.d. and also aspirin due to thrombocytopenia, metastatic liver disease. We will get an echocardiogram for further evaluation, but no further invasive evaluation is warranted at this point prior to EGD. 2. Hypertension, on metoprolol 25 mg b.i.d. 3. First-degree AV block without any syncope. 4. Metastatic melanoma, left eye. Thank you very much for allowing me to participate in the care of this patient. Please do not hesitate to contact me for any questions regarding my evaluation. Jaison Zuñiga M.D. DR: JEFF JOB#: [id number] CC:
--- NOTE | 2018-05-01 21:31 | Cardiology Report ---
APPROVED REPORT EKG Measurement Heart [id number] Sinus rhythm with 1st degree AV block Otherwise normal ECG
[2018-05-01] MEDS: LORazepam Inj 2mg/ml 1ml IV PRN (21:57)
[2018-05-02] VITALS (10 sets, daily range): BP systolic 107–133; BP diastolic 53–78
[2018-05-02 06:30] LABS: HEMATOCRIT 34.3 % (42.0-52.0); HEMOGLOBIN 11.8 G/DL (14.2-18.0); MEAN CORPUSCULAR VOLUME 97 FL (80-99); PLATELET COUNT 74 K/UL (150-450); RED BLOOD COUNT 3.52 M/UL (4.70-6.10); RED CELL DISTRIBUTION WIDTH 12.2 % (11.6-14.8)
[2018-05-02 06:31] LABS: INR 1.1 (0.9-1.1)
[2018-05-02 07:13] LABS: ALANINE AMINOTRANSFERASE 28 U/L (12-78); ALBUMIN 2.5 G/DL (3.4-5.0); ALBUMIN/GLOBULIN RATIO 0.7 (1.0-2.7); ALKALINE PHOSPHATASE 237 U/L (46-116); ANION GAP 8 mmol/L (5-15); ASPARTATE AMINO TRANSFERASE 100 U/L (15-37); BILIRUBIN,TOTAL 3.3 MG/DL (0.2-1.0); BLOOD UREA NITROGEN 15 mg/dL (7-18); CALCIUM 8.9 MG/DL (8.5-10.1); CARBON DIOXIDE 26 MMOL/L (21-32); CHLORIDE 108 MMOL/L (98-107); CREATININE 0.7 MG/DL (0.55-1.30); PHOSPHORUS 3.7 MG/DL (2.5-4.9); POTASSIUM 3.6 MMOL/L (3.5-5.1); SODIUM 141 MMOL/L (136-145)
[2018-05-02] MEDS ORDERED: fentaNYL 100 mcg/2 mL IV PRN (08:15)
[2018-05-02] MEDS ORDERED: Midazolam 2mg/2ml Inj IVP PRN (08:15)
[2018-05-02] MEDS ORDERED: DiphenhydrAMINE 50mg/ml Inj IVP PRN (08:15)
[2018-05-02] MEDS ORDERED: Atropine Inj 1mg/10ml Syr IV PRN (08:15)
--- NOTE | 2018-05-02 08:22 | Anethesia Preoperative Eval ---
Anesthesia Pre-op PMH/ROS General Date of Evaluation: May 02, 2018 Time of Evaluation: 08:16 Anesthesiologist: jeff ASA Score: ASA 3 Mallampati Score Class I : Soft palate, uvula, fauces, pillars visible Class II: Soft palate, uvula, fauces visible Class III: Soft palate, base of uvula visible Class IV: Only hard plate visible Mallampati Classification: Class II Surgeon: alayna Diagnosis: gastric mass Surgical Procedure: egd Anesthesia History: none Social History: smoking - nonsmoker Family History: no anesthesia problems Allergies: Coded Allergies: No Known Allergies (Unverified , 04/26/18) Past Medical History Cardiovascular: Reports: CAD, other - acute coronary syndrome Gastrointestinal/Genitourinary: Reports: other - liver cancer, gastric mass, pancreatitis, hepatic encephalopathy Neurologic/Psychiatric: Reports: other - ams HEENT: Reports: other - left eye prosthesis Musculoskeletal/Integumentary: Reports: other - lumbar vertebral fracture Anesthesia Pre-op Phys. Exam Physician Exam Last Vital Signs Date Time Temp Pulse Resp B/P (MAP) Pulse Ox O2 Delivery O2 Flow Rate FiO2 05/02/18 04:19 97.3 65 17 118/53 (74) 98 97.3 05/01/18 21:00 Room Air 05/01/18 20:58 21 Constitutional: NAD Neurologic: CN 2-12 intact Cardiovascular: RRR Respiratory: CTA Gastrointestinal: S/NT/ND Airway Exam Mallampati Score: Class II MO: limited Neck: flexible TMD: 2fb ROM: limited Anesthesia Pre-op A/P Labs Hematology Test 05/02/18 05:50 White Blood Count 6.0 K/UL (4.8-10.8) Red Blood Count 3.52 M/UL (4.70-6.10) L Hemoglobin 11.8 G/DL (14.2-18.0) L Hematocrit 34.3 % (42.0-52.0) L Mean Corpuscular Volume 97 FL (80-99) Mean Corpuscular Hemoglobin 33.5 PG (27.0-31.0) H Mean Corpuscular Hemoglobin Concent 34.4 G/DL (32.0-36.0) Red Cell Distribution Width 12.2 % (11.6-14.8) Platelet Count 74 K/UL (150-450) L Mean Platelet Volume 8.1 FL (6.5-10.1) Neutrophils (%) (Auto) % (45.0-75.0) Lymphocytes (%) (Auto) % (20.0-45.0) Monocytes (%) (Auto) % (1.0-10.0) Eosinophils (%) (Auto) % (0.0-3.0) Basophils (%) (Auto) % (0.0-2.0) Neutrophils % (Manual) Pending Lymphocytes % (Manual) Pending Platelet Estimate Pending Platelet Morphology Pending Coagulation Test 05/02/18 05:50 Prothrombin Time 12.0 SEC (9.30-11.50) H Prothromb Time International Ratio 1.1 (0.9-1.1) Activated Partial Thromboplast Time 29 SEC (23-33) Chemistry Test 05/02/18 05:50 Sodium Level 141 MMOL/L (136-145) Potassium Level 3.6 MMOL/L (3.5-5.1) Chloride Level 108 MMOL/L (98-107) H Carbon Dioxide Level 26 MMOL/L (21-32) Anion Gap 8 mmol/L (5-15) Blood Urea Nitrogen 15 mg/dL (7-18) Creatinine 0.7 MG/DL (0.55-1.30) Estimat Glomerular Filtration Rate > 60 mL/min (>60) Glucose Level 95 MG/DL (74-106) Calcium Level 8.9 MG/DL (8.5-10.1) Phosphorus Level 3.7 MG/DL (2.5-4.9) Magnesium Level 1.9 MG/DL (1.8-2.4) Total Bilirubin 3.3 MG/DL (0.2-1.0) H Direct Bilirubin 1.0 MG/DL (0.0-0.3) H Aspartate Amino Transf (AST/SGOT) 100 U/L (15-37) H Alanine Aminotransferase (ALT/SGPT) 28 U/L (12-78) Alkaline Phosphatase 237 U/L (46-116) H Total Protein 5.9 G/DL (6.4-8.2) L Albumin 2.5 G/DL (3.4-5.0) L Globulin 3.4 g/dL Albumin/Globulin Ratio 0.7 (1.0-2.7) L [id number] Pending Ceruloplasmin Pending Risk Assessment & Plan Assessment: asa3 Plan: mac Status Change Before Surgery: No Pre-Antibiotics Drug: Ambar Mcintyre MD May 02, 2018 08:22
[2018-05-02] MEDS: Lactulose 10gm/15ml UDC ORAL SCH ×3 (09:00→17:42)
[2018-05-02] MEDS: Metoprolol 25mg tab ORAL SCH ×2 (09:00→20:24)
[2018-05-02] MEDS: valACYclovir HCL 500mg tab ORAL SCH ×2 (09:00→17:51)
--- NOTE | 2018-05-02 09:51 | Pre-Procedure Note/Attestation ---
Pre-Procedure Note/Attestation Complete Prior to Procedure Planned Procedure: not applicable Procedure Narrative: egd Indications for Procedure Pre-Operative Diagnosis: ? gastric mass Attestation I attest that I discussed the nature of the procedure; its benefits; risks and complications; and alternatives (and the risks and benefits of such alternatives ), prior to the procedure, with the patient (or the patient's legal outside energy sales representatives). I attest that, if there was a reasonable possibility of needing a blood transfusion, the patient (or the patient's legal outside energy sales representatives) was given the [facility] standardized written summary, pursuant to the Dani Jean-Paul Blood Safety Act ([place] Health and Safety Code # 1645, as amended). I attest that I re-evaluated the patient just prior to the surgery and that there has been no change in the patient's H&P, except as documented below: Sanjeev Pena MD May 02, 2018 09:51
[2018-05-02] MEDS ORDERED: Propofol 200mg/20ml IV ONE (10:00)
[2018-05-02] MEDS ORDERED: NS 500ML IVPB ONE (10:00)
[2018-05-02] MEDS ORDERED: Lidocaine 1% MPF 10mg/ml 5ml ONE (10:00)
--- NOTE | 2018-05-02 10:31 | Endoscopy Procedure Note ---
Endoscopy Procedure Note General Indication for Procedure: ? gastric mass Procedures Performed: EGD Operative Findings/Diagnosis: esoph varices Specimen: yes Pt Tolerated Procedure Well: Yes Estimated Blood Loss: none Anesthesia Anesthesiologist: deven Anesthesia: MAC Inserted Devices Implant(s) used?: No GI Core Measures 50 yrs or older w/o bx or poly: Not Applicable 10yrs. F/U not recommended: Not Applicable Sanjeev Pena MD May 02, 2018 10:31
--- NOTE | 2018-05-02 11:28 | Immediate Post-Op Evaluation ---
Immediate Post-Op Evalulation Immediate Post-Op Evalulation Procedure: egd w/bx Date of Evaluation: May 02, 2018 Time of Evaluation: 10:43 IV Fluids: 100ml 0.9ns Blood Products: none Estimated Blood Loss: negligible Blood Pressure Systolic: 107 Blood Pressure Diastolic: 56 Pulse Rate: 72 Respiratory Rate: 18 O2 Sat by Pulse Oximetry: 100 Temperature (Fahrenheit): 98.2 Pain Score (1-10): 0 Nausea: No Vomiting: No Complications none Patient Status: awake, reacts, patent Hydration Status: adequate Drug: Ambar Mcintyre MD May 02, 2018 11:27
--- NOTE | 2018-05-02 11:29 | 48 Hour Post Anesthesia Eval ---
Post Anesthesia Evaluation Procedure: egd w/bx Date of Evaluation: May 02, 2018 Time of Evaluation: 10:45 Blood Pressure Systolic: 112 0: 55 Pulse Rate: 72 Respiratory Rate: 18 Temperature (Fahrenheit): 98.2 O2 Sat by Pulse Oximetry: 100 Airway: patent Nausea: No Vomiting: No Pain Intensity: 0 Hydration Status: adequate Cardiopulmonary Status: stable Mental Status/LOC: patient returned to baseline Post-Anesthesia Complications: none Follow-up care needed: N/A Ambar Ace MD May 02, 2018 11:29
--- NOTE | 2018-05-02 11:30 | Procedure Note ---
DATE OF PROCEDURE: 05/02/2018 SURGEON: Sanjeev Pena M.D. ANESTHESIOLOGIST: Dr. George. REFERRING PHYSICIAN: Josh Schmitz M.D. PROCEDURE: Upper endoscopy with biopsy. ANESTHESIA: Per Dr. George. INSTRUMENT: Olympus adult flexible upper endoscope. INDICATION: Questionable mass seen on the CT scan. The procedure, risks, benefits, and possible consequences, including hemorrhage, aspiration, perforation and infection, and alternative treatments, were explained to the patient/legal guardian by Dr. Sanjeev Pena and the patient/legal guardian understood and accepted these risks. DESCRIPTION OF PROCEDURE: After informed consent was obtained and the patient was adequately sedated, Olympus upper endoscope was advanced from the mouth into the second portion of duodenum and retroflexion was performed in the stomach. The patient had evidence of 4 columns of esophageal varices grade 2/grade 3 without any stigmata. In the stomach, there was portal hypertensive gastropathy. Random biopsy from antrum was obtained. In the duodenum, there was a shallow duodenal ulcer right at the junction of the duodenal bulb and second portion of the duodenum without any adherent clot or visible vessel. At this time, the scope was retrieved and procedure was terminated. SUMMARY OF FINDINGS: 1. Esophageal varices. 2. Small hiatal hernia. 3. Portal hypertensive gastropathy. 4. Duodenal ulceration. RECOMMENDATIONS: The patient is currently on beta-scarlet, we will continue. Follow up biopsy results. 2-gram sodium diet. Send serology for H. pylori and also follow up biopsy results for H. pylori and treat if it is positive. I want to thank Dr. Josh Schmitz for this kind referral. Sanjeev Pena M.D. DR: Francesco JOB#: [id number] CC: Josh Schmitz M.D.; Fax#: [phone]
--- NOTE | 2018-05-02 11:54 | Internal Med Progress Note ---
Subjective Physician Name Carlos Alberto Madrigal Attending Physician Josh Schmitz MD Current Medications Medications (Trade) Dose Ordered Sig/Elsy Route PRN Reason Start Time Stop Time Status Last Admin Dose Admin Al Hydroxide/Mg Hydroxide (Mylanta II) 30 ml Q6H PRN ORAL dyspepsia 04/27/18 13:45 05/26/18 13:44 Al Hydroxide/Mg Hydroxide (Mylanta) 15 ml Q1H PRN ORAL gi upset 05/02/18 08:15 05/02/18 14:00 Albuterol/ Ipratropium (Albuterol/ Ipratropium) 3 ml Q4H PRN HHN Shortness of Breath 04/28/18 08:15 05/03/18 08:14 Atropine Sulfate (Atropine) 0.5 mg Q5M PRN IV bpm less than 45 05/02/18 08:15 05/02/18 14:00 Benzonatate (Tessalon Perles) 200 mg THREE TIMES A DAY PRN ORAL For Cough 04/27/18 16:45 05/27/18 16:44 Dextrose (Dextrose 50%) 25 ml PRN IV hypoglycemia 04/27/18 13:45 05/26/18 13:59 Dextrose (Dextrose 50%) 50 ml PRN IV hypoglycemia 04/27/18 13:45 05/26/18 13:59 Diphenhydramine HCl (Benadryl) 25 mg Q15M PRN IVP Itching 05/02/18 08:15 05/02/18 14:00 Diphenhydramine HCl (Benadryl) 25 mg Q6H PRN ORAL Itching/Pruritis 04/27/18 13:45 05/26/18 13:44 Fentanyl Citrate (Sublimaze 100 mcg/2 mL) 25 mcg Q10M PRN IV Moderate Pain (Pain Scale 4-6) 05/02/18 08:15 05/02/18 14:00 Hydralazine HCl (Apresoline) 5 mg Q30M PRN IV SBP>160 /DBP>90 05/02/18 08:15 05/02/18 14:00 Lactulose (Cephulac) 10 gm THREE TIMES A DAY ORAL 04/27/18 18:00 05/26/18 17:59 Lorazepam (Ativan 2mg/ml 1ml) 1 mg Q4H PRN IV agitation 04/27/18 13:45 05/03/18 13:44 05/01/18 21:57 Metoprolol Tartrate (Lopressor) 25 mg Q12HR ORAL 04/27/18 21:00 05/27/18 20:59 05/01/18 21:57 Midazolam HCl (Versed 2mg/2ml vial) 1 mg Q15M PRN IVP For Anxiety 05/02/18 08:15 05/02/18 14:00 Morphine Sulfate (Morphine Sulfate) 2 mg Q4H PRN IVP Severe Pain (Pain Scale 7-10) 04/27/18 13:45 05/03/18 13:44 Nitroglycerin (Ntg) 0.4 mg Q5M X 3 DOSES PRN SL Prn Chest Pain 04/27/18 13:45 05/26/18 13:44 Ondansetron HCl (Zofran) 4 mg Q1H PRN IVP Nausea & Vomiting 05/02/18 08:15 05/02/18 14:00 Ondansetron HCl (Zofran) 4 mg Q6H PRN IVP Nausea & Vomiting 04/27/18 13:45 05/26/18 13:44 Oxymetazoline HCl (Afrin Nasal [place]) 2 spray TWICE A DAY PRN NASAL nasal congestion 04/28/18 10:15 05/27/18 17:59 Pantoprazole (Protonix) 40 mg DAILY ORAL 04/29/18 09:00 05/29/18 08:59 05/01/18 09:59 Polyethylene Glycol (Miralax) 17 gm HSPRN PRN ORAL Constipation 04/27/18 21:00 05/26/18 20:59 Quetiapine Fumarate (SEROquel) 25 mg EVERY 6 HOURS PRN ORAL For Anxiety 04/27/18 18:00 05/27/18 13:29 Rifaximin (Xifaxan) 550 mg EVERY 12 HOURS ORAL 04/27/18 21:00 05/03/18 20:59 05/01/18 21:57 Temazepam (Restoril) 15 mg HSPRN PRN ORAL Insomnia 04/27/18 21:00 05/03/18 20:59 04/29/18 00:00 Tramadol HCl (Ultram) 50 mg Q8H PRN ORAL For Pain 04/27/18 16:45 05/04/18 16:44 Valacyclovir HCl (Valtrex) 500 mg TWICE A DAY ORAL 04/27/18 18:00 05/27/18 17:59 05/01/18 18:08 Allergies: Coded Allergies: No Known Allergies (Unverified , 04/26/18) Subjective 67 YO M admitted with altered mental status. Now hepatic encephalopathy. Cover for Int Med-Dr Schmitz Less confused today. C/O back pain. S/P endoscopy 05/02/18 Objective Last Vital Signs Date Time Temp Pulse Resp B/P (MAP) Pulse Ox O2 Delivery O2 Flow Rate FiO2 05/02/18 11:29 208.8 72 18 100 05/02/18 10:53 110/56 Room Air 05/02/18 10:41 2 05/02/18 08:33 21 Laboratory Tests Test 05/02/18 05:50 White Blood Count 6.0 K/UL (4.8-10.8) Red Blood Count 3.52 M/UL (4.70-6.10) L Hemoglobin 11.8 G/DL (14.2-18.0) L Hematocrit 34.3 % (42.0-52.0) L Mean Corpuscular Volume 97 FL (80-99) Mean Corpuscular Hemoglobin 33.5 PG (27.0-31.0) H Mean Corpuscular Hemoglobin Concent 34.4 G/DL (32.0-36.0) Red Cell Distribution Width 12.2 % (11.6-14.8) Platelet Count 74 K/UL (150-450) L Mean Platelet Volume 8.1 FL (6.5-10.1) Neutrophils (%) (Auto) % (45.0-75.0) Lymphocytes (%) (Auto) % (20.0-45.0) Monocytes (%) (Auto) % (1.0-10.0) Eosinophils (%) (Auto) % (0.0-3.0) Basophils (%) (Auto) % (0.0-2.0) Differential Total Cells Counted 100 Neutrophils % (Manual) 64 % (45-75) Lymphocytes % (Manual) 20 % (20-45) Monocytes % (Manual) 9 % (1-10) Eosinophils % (Manual) 7 % (0-3) H Basophils % (Manual) 0 % (0-2) Band Neutrophils 0 % (0-8) Platelet Estimate Decreased L Platelet Morphology Normal Hypochromasia 1+ Anisocytosis 1+ Prothrombin Time 12.0 SEC (9.30-11.50) H Prothromb Time International Ratio 1.1 (0.9-1.1) Activated Partial Thromboplast Time 29 SEC (23-33) Sodium Level 141 MMOL/L (136-145) Potassium Level 3.6 MMOL/L (3.5-5.1) Chloride Level 108 MMOL/L (98-107) H Carbon Dioxide Level 26 MMOL/L (21-32) Anion Gap 8 mmol/L (5-15) Blood Urea Nitrogen 15 mg/dL (7-18) Creatinine 0.7 MG/DL (0.55-1.30) Estimat Glomerular Filtration Rate > 60 mL/min (>60) Glucose Level 95 MG/DL (74-106) Calcium Level 8.9 MG/DL (8.5-10.1) Phosphorus Level 3.7 MG/DL (2.5-4.9) Magnesium Level 1.9 MG/DL (1.8-2.4) Total Bilirubin 3.3 MG/DL (0.2-1.0) H Direct Bilirubin 1.0 MG/DL (0.0-0.3) H Aspartate Amino Transf (AST/SGOT) 100 U/L (15-37) H Alanine Aminotransferase (ALT/SGPT) 28 U/L (12-78) Alkaline Phosphatase 237 U/L (46-116) H Total Protein 5.9 G/DL (6.4-8.2) L Albumin 2.5 G/DL (3.4-5.0) L Globulin 3.4 g/dL Albumin/Globulin Ratio 0.7 (1.0-2.7) L Vcvne-7-Eonxdiekpux Pending Ceruloplasmin Pending Immunoglobulin G Pending Immunoglobulin G1 Pending Immunoglobulin G2 Pending Immunoglobulin G3 Pending Immunoglobulin G4 Pending Anti-Nuclear Antibody Screen Pending F-Actin IgG Antibody Pending Intake and Output 05/01/18 05/02/18 19:00 07:00 Intake Total 840 ml Output Total 600 ml Balance 240 ml Intake Oral 840 ml Output Urine Total 600 ml # Voids 1 7 # Bowel Movements 2 Objective General Appearance: WD/WN, no apparent distress, alert EENT: PERRL/EOMI, normal ENT inspection, TMs normal Neck: non-tender, normal alignment, supple, normal inspection Cardiovascular: normal peripheral pulses, normal rate, regular rhythm, no gallop/murmur, no JVD Respiratory/Chest: chest wall non-tender, lungs clear, normal breath sounds, no respiratory distress, no accessory muscle use Abdomen: normal bowel sounds, non tender, soft, no organomegaly, no mass Extremities: normal range of motion, non-tender Edema: trace edema 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 S/P endoscopy 05/02/18 (3) Sludge in gallbladder (4) Pancreatitis (5) Hepatic encephalopathy Assessment & Plan: CT abdomen =No Masses. Resolving-see GI note (6) Altered mental status Assessment & Plan: Hepatic encephalopathy. Improving (7) Lumbar vertebral fracture Assessment & Plan: Await MRI (8) Elevated troponin Assessment & Plan: see cardiology note (9) Idiopathic esophageal varices without bleeding Assessment & Plan: S/P endoscopy 05/02/18. See GI note Status: stable Carlos Alberto Madrigal MD May 02, 2018 11:54
--- NOTE | 2018-05-02 12:39 | Pulmonology Progress Note ---
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 Subjective ROS Limited/Unobtainable: No HEENT: Repors: no symptoms Respiratory: Reports: no symptoms Allergies: Coded Allergies: No Known Allergies (Unverified , 04/26/18) Objective Last 24 Hour Vital Signs Date Time Temp Pulse Resp B/P (MAP) Pulse Ox O2 Delivery O2 Flow Rate FiO2 05/02/18 12:00 97.8 78 20 123/78 (93) 98 97.8 05/02/18 11:29 208.8 72 18 100 05/02/18 11:28 208.8 72 18 100 05/02/18 10:53 98.2 69 18 110/56 98 Room Air 98.2 05/02/18 10:41 72 18 112/55 100 Nasal Cannula 2 05/02/18 10:36 72 18 108/56 100 Nasal Cannula 2 05/02/18 10:31 98.2 72 18 107/56 100 Nasal Cannula 2 98.2 05/02/18 09:00 71 133/70 05/02/18 09:00 Room Air 05/02/18 08:33 71 18 Room Air 21 05/02/18 08:00 97.3 72 20 133/70 (91) 98 97.3 05/02/18 04:19 97.3 65 17 118/53 (74) 98 97.3 05/02/18 00:12 98.2 73 20 111/55 (73) 94 98.2 05/01/18 21:57 80 122/55 05/01/18 21:00 Room Air 05/01/18 20:58 77 18 Room Air 21 05/01/18 19:06 98.2 80 19 122/55 (77) 96 98.2 05/01/18 16:00 98.2 72 20 137/79 (98) 96 98.2 Intake and Output 05/01/18 05/02/18 19:00 07:00 Intake Total 840 ml Output Total 600 ml Balance 240 ml Intake Oral 840 ml Output Urine Total 600 ml # Voids 1 7 # Bowel Movements 2 General Appearance: WD/WN HEENT: normocephalic, atraumatic Respiratory/Chest: chest wall non-tender, lungs clear Cardiovascular: normal peripheral pulses, normal rate, no JVD Abdomen: soft, non tender Genitourinary: normal external genitalia Extremities: no clubbing Skin: no rash, no ulcers Laboratory Tests 05/02/18 05:50: White Blood Count 6.0, Red Blood Count 3.52L, Hemoglobin 11.8L, Hematocrit 34.3L , Mean Corpuscular Volume 97, Mean Corpuscular Hemoglobin 33.5H, Mean Corpuscular Hemoglobin Concent 34.4, Red Cell Distribution Width 12.2, Platelet Count 74L, Mean Platelet Volume 8.1, Neutrophils (%) (Auto) , Lymphocytes (%) ( Auto) , Monocytes (%) (Auto) , Eosinophils (%) (Auto) , Basophils (%) (Auto) , Differential Total Cells Counted 100, Neutrophils % (Manual) 64, Lymphocytes % ( Manual) 20, Monocytes % (Manual) 9, Eosinophils % (Manual) 7H, Basophils % ( Manual) 0, Band Neutrophils 0, Platelet Estimate DecreasedL, Platelet Morphology Normal, Hypochromasia 1+, Anisocytosis 1+, Prothrombin Time 12.0H, Prothromb Time International Ratio 1.1, Activated Partial Thromboplast Time 29, Sodium Level 141, Potassium Level 3.6, Chloride Level 108H, Carbon Dioxide Level 26, Anion Gap 8, Blood Urea Nitrogen 15, Creatinine 0.7, Estimat Glomerular Filtration Rate > 60, Glucose Level 95, Calcium Level 8.9, Phosphorus Level 3.7, Magnesium Level 1.9, Total Bilirubin 3.3H, Direct Bilirubin 1.0H, Aspartate Amino Transf (AST/SGOT) 100H, Alanine Aminotransferase (ALT/SGPT) 28, Alkaline Phosphatase 237H, Total Protein 5.9L, Albumin 2.5L, Globulin 3.4, Albumin/Globulin Ratio 0.7L, Kecgx-2-Drotneqzpuq [ Pending], Ceruloplasmin [Pending], Immunoglobulin G [Pending], Immunoglobulin G1 [Pending], Immunoglobulin G2 [Pending], Immunoglobulin G3 [Pending], Immunoglobulin G4 [Pending], Anti-Nuclear Antibody Screen [Pending], F-Actin IgG Antibody [Pending] Current Medications Medications (Trade) Dose Ordered Sig/Elsy Route PRN Reason Start Time Stop Time Status Last Admin Dose Admin Al Hydroxide/Mg Hydroxide (Mylanta II) 30 ml Q6H PRN ORAL dyspepsia 04/27/18 13:45 05/26/18 13:44 Al Hydroxide/Mg Hydroxide (Mylanta) 15 ml Q1H PRN ORAL gi upset 05/02/18 08:15 05/02/18 14:00 Albuterol/ Ipratropium (Albuterol/ Ipratropium) 3 ml Q4H PRN HHN Shortness of Breath 04/28/18 08:15 05/03/18 08:14 Atropine Sulfate (Atropine) 0.5 mg Q5M PRN IV bpm less than 45 05/02/18 08:15 05/02/18 14:00 Benzonatate (Tessalon Perles) 200 mg THREE TIMES A DAY PRN ORAL For Cough 04/27/18 16:45 05/27/18 16:44 Dextrose (Dextrose 50%) 25 ml PRN IV hypoglycemia 04/27/18 13:45 05/26/18 13:59 Dextrose (Dextrose 50%) 50 ml PRN IV hypoglycemia 04/27/18 13:45 05/26/18 13:59 Diphenhydramine HCl (Benadryl) 25 mg Q15M PRN IVP Itching 05/02/18 08:15 05/02/18 14:00 Diphenhydramine HCl (Benadryl) 25 mg Q6H PRN ORAL Itching/Pruritis 04/27/18 13:45 05/26/18 13:44 Fentanyl Citrate (Sublimaze 100 mcg/2 mL) 25 mcg Q10M PRN IV Moderate Pain (Pain Scale 4-6) 05/02/18 08:15 05/02/18 14:00 Hydralazine HCl (Apresoline) 5 mg Q30M PRN IV SBP>160 /DBP>90 05/02/18 08:15 05/02/18 14:00 Lactulose (Cephulac) 10 gm THREE TIMES A DAY ORAL 04/27/18 18:00 05/26/18 17:59 Lorazepam (Ativan 2mg/ml 1ml) 1 mg Q4H PRN IV agitation 04/27/18 13:45 05/03/18 13:44 05/01/18 21:57 Metoprolol Tartrate (Lopressor) 25 mg Q12HR ORAL 04/27/18 21:00 05/27/18 20:59 05/01/18 21:57 Midazolam HCl (Versed 2mg/2ml vial) 1 mg Q15M PRN IVP For Anxiety 05/02/18 08:15 05/02/18 14:00 Morphine Sulfate (Morphine Sulfate) 2 mg Q4H PRN IVP Severe Pain (Pain Scale 7-10) 04/27/18 13:45 05/03/18 13:44 Nitroglycerin (Ntg) 0.4 mg Q5M X 3 DOSES PRN SL Prn Chest Pain 04/27/18 13:45 05/26/18 13:44 Ondansetron HCl (Zofran) 4 mg Q1H PRN IVP Nausea & Vomiting 05/02/18 08:15 05/02/18 14:00 Ondansetron HCl (Zofran) 4 mg Q6H PRN IVP Nausea & Vomiting 04/27/18 13:45 05/26/18 13:44 Oxymetazoline HCl (Afrin Nasal [place]) 2 spray TWICE A DAY PRN NASAL nasal congestion 04/28/18 10:15 05/27/18 17:59 Pantoprazole (Protonix) 40 mg DAILY ORAL 04/29/18 09:00 05/29/18 08:59 05/01/18 09:59 Polyethylene Glycol (Miralax) 17 gm HSPRN PRN ORAL Constipation 04/27/18 21:00 05/26/18 20:59 Quetiapine Fumarate (SEROquel) 25 mg EVERY 6 HOURS PRN ORAL For Anxiety 04/27/18 18:00 05/27/18 13:29 Rifaximin (Xifaxan) 550 mg EVERY 12 HOURS ORAL 04/27/18 21:00 05/03/18 20:59 05/01/18 21:57 Temazepam (Restoril) 15 mg HSPRN PRN ORAL Insomnia 04/27/18 21:00 05/03/18 20:59 04/29/18 00:00 Tramadol HCl (Ultram) 50 mg Q8H PRN ORAL For Pain 04/27/18 16:45 05/04/18 16:44 Valacyclovir HCl (Valtrex) 500 mg TWICE A DAY ORAL 04/27/18 18:00 05/27/18 17:59 05/01/18 18:08 Mira Coates MD May 02, 2018 12:39
[2018-05-02] MEDS ORDERED: Phytonadione 10 MG in D5W 55 ML IVPB ONE (13:30)
--- NOTE | 2018-05-02 13:39 | Cardiac Electrophysiology PN ---
Assessment/Plan Assessment/Plan 1. Troponin elevation. Levels are flat 0.502, 0.507 and 0.5. The patient does not have any chest pain and EKG does not show any ischemic changes. Continue metoprolol 25 mg b.i.d. Echocardiogram showed Nl EF 2. Hypertension, on metoprolol 25 mg b.i.d. 3. First-degree AV block without any syncope. 4. Metastatic melanoma, left eye. S/P EGD by Dr Pena Subjective Subjective No events.Had EGD. Still legs are swollen Objective Last 24 Hour Vital Signs Date Time Temp Pulse Resp B/P (MAP) Pulse Ox O2 Delivery O2 Flow Rate FiO2 05/02/18 12:00 97.8 78 20 123/78 (93) 98 97.8 05/02/18 11:29 208.8 72 18 100 05/02/18 11:28 208.8 72 18 100 05/02/18 10:53 98.2 69 18 110/56 98 Room Air 98.2 05/02/18 10:41 72 18 112/55 100 Nasal Cannula 2 05/02/18 10:36 72 18 108/56 100 Nasal Cannula 2 05/02/18 10:31 98.2 72 18 107/56 100 Nasal Cannula 2 98.2 05/02/18 09:00 71 133/70 05/02/18 09:00 Room Air 05/02/18 08:33 71 18 Room Air 21 05/02/18 08:00 97.3 72 20 133/70 (91) 98 97.3 05/02/18 04:19 97.3 65 17 118/53 (74) 98 97.3 05/02/18 00:12 98.2 73 20 111/55 (73) 94 98.2 05/01/18 21:57 80 122/55 05/01/18 21:00 Room Air 05/01/18 20:58 77 18 Room Air 21 05/01/18 19:06 98.2 80 19 122/55 (77) 96 98.2 05/01/18 16:00 98.2 72 20 137/79 (98) 96 98.2 Intake and Output 05/01/18 05/02/18 19:00 07:00 Intake Total 840 ml Output Total 600 ml Balance 240 ml Intake Oral 840 ml Output Urine Total 600 ml # Voids 1 7 # Bowel Movements 2 Laboratory Tests Test 05/02/18 05:50 White Blood Count 6.0 K/UL (4.8-10.8) Red Blood Count 3.52 M/UL (4.70-6.10) L Hemoglobin 11.8 G/DL (14.2-18.0) L Hematocrit 34.3 % (42.0-52.0) L Mean Corpuscular Volume 97 FL (80-99) Mean Corpuscular Hemoglobin 33.5 PG (27.0-31.0) H Mean Corpuscular Hemoglobin Concent 34.4 G/DL (32.0-36.0) Red Cell Distribution Width 12.2 % (11.6-14.8) Platelet Count 74 K/UL (150-450) L Mean Platelet Volume 8.1 FL (6.5-10.1) Neutrophils (%) (Auto) % (45.0-75.0) Lymphocytes (%) (Auto) % (20.0-45.0) Monocytes (%) (Auto) % (1.0-10.0) Eosinophils (%) (Auto) % (0.0-3.0) Basophils (%) (Auto) % (0.0-2.0) Differential Total Cells Counted 100 Neutrophils % (Manual) 64 % (45-75) Lymphocytes % (Manual) 20 % (20-45) Monocytes % (Manual) 9 % (1-10) Eosinophils % (Manual) 7 % (0-3) H Basophils % (Manual) 0 % (0-2) Band Neutrophils 0 % (0-8) Platelet Estimate Decreased L Platelet Morphology Normal Hypochromasia 1+ Anisocytosis 1+ Prothrombin Time 12.0 SEC (9.30-11.50) H Prothromb Time International Ratio 1.1 (0.9-1.1) Activated Partial Thromboplast Time 29 SEC (23-33) Sodium Level 141 MMOL/L (136-145) Potassium Level 3.6 MMOL/L (3.5-5.1) Chloride Level 108 MMOL/L (98-107) H Carbon Dioxide Level 26 MMOL/L (21-32) Anion Gap 8 mmol/L (5-15) Blood Urea Nitrogen 15 mg/dL (7-18) Creatinine 0.7 MG/DL (0.55-1.30) Estimat Glomerular Filtration Rate > 60 mL/min (>60) Glucose Level 95 MG/DL (74-106) Calcium Level 8.9 MG/DL (8.5-10.1) Phosphorus Level 3.7 MG/DL (2.5-4.9) Magnesium Level 1.9 MG/DL (1.8-2.4) Total Bilirubin 3.3 MG/DL (0.2-1.0) H Direct Bilirubin 1.0 MG/DL (0.0-0.3) H Aspartate Amino Transf (AST/SGOT) 100 U/L (15-37) H Alanine Aminotransferase (ALT/SGPT) 28 U/L (12-78) Alkaline Phosphatase 237 U/L (46-116) H Total Protein 5.9 G/DL (6.4-8.2) L Albumin 2.5 G/DL (3.4-5.0) L Globulin 3.4 g/dL Albumin/Globulin Ratio 0.7 (1.0-2.7) L Eemzm-1-Esrzigwdkwc Pending Ceruloplasmin Pending Immunoglobulin G Pending Immunoglobulin G1 Pending Immunoglobulin G2 Pending Immunoglobulin G3 Pending Immunoglobulin G4 Pending Anti-Nuclear Antibody Screen Pending F-Actin IgG Antibody Pending Objective HEAD AND NECK: No JVD. LUNGS: Clear. CARDIOVASCULAR: Regular S1 and S2 with no gallop. ABDOMEN: Distended. EXTREMITIES: There is 2+ pitting edema. Jaison Zuñiga MD May 02, 2018 13:39
--- NOTE | 2018-05-02 18:38 | Cardiology Report ---
APPROVED REPORT EXAM: Two-dimensional and M-mode echocardiogram with Doppler and color Doppler. INDICATION CORONARY ARTERY DISEASE Technically difficult study due to poor acoustical windows . Normal left ventricular chamber size. This study precludes assessment of LV WM or EF. No evidence of left ventricular hypertrophy . No evidence of pericardial effusion. Mild bi-atrial enlargement . Right ventricular chamber sizes are within normal limits. Focal aortic valve sclerosis with adequate cusp excursion. Thickened mitral valve leaflets with normal excursion. Mitral annulus and aortic root calcification. Pulmonic valve not well visualized. Normal tricuspid valve structure. IVC at normal size without physiologic collapse. A color flow and spectral Doppler study was performed and revealed: No aortic regurgitation. Trace mitral regurgitation. Mitral diastolic velocities suggest reduced left ventricular relaxation c/w mild LV diastolic dysfunction (Grade I ). Mild tricuspid regurgitation. Tricuspid systolic velocities suggests peak right ventricular systolic pressure of 33mmHg.
--- NOTE | 2018-05-02 20:06 | General Progress Note ---
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 -Seroquel prn -Provided ro/st Subjective Date patient seen: May 02, 2018 Neurologic/Psychiatric: Reports: anxiety, depressed, emotional problems Allergies: Coded Allergies: No Known Allergies (Unverified , 04/26/18) Objective Last 24 Hour Vital Signs Date Time Temp Pulse Resp B/P (MAP) Pulse Ox O2 Delivery O2 Flow Rate FiO2 05/02/18 19:53 78 20 Room Air 21 05/02/18 16:00 98.0 78 20 124/68 (86) 98 98.0 05/02/18 12:00 97.8 78 20 123/78 (93) 98 97.8 05/02/18 11:29 208.8 72 18 100 05/02/18 11:28 208.8 72 18 100 05/02/18 10:53 98.2 69 18 110/56 98 Room Air 98.2 05/02/18 10:41 72 18 112/55 100 Nasal Cannula 2 05/02/18 10:36 72 18 108/56 100 Nasal Cannula 2 05/02/18 10:31 98.2 72 18 107/56 100 Nasal Cannula 2 98.2 05/02/18 09:00 71 133/70 05/02/18 09:00 Room Air 05/02/18 08:33 71 18 Room Air 21 05/02/18 08:00 97.3 72 20 133/70 (91) 98 97.3 05/02/18 04:19 97.3 65 17 118/53 (74) 98 97.3 05/02/18 00:12 98.2 73 20 111/55 (73) 94 98.2 05/01/18 21:57 80 122/55 05/01/18 21:00 Room Air 05/01/18 20:58 77 18 Room Air 21 Intake and Output 05/01/18 05/02/18 19:00 07:00 Intake Total 840 ml Output Total 600 ml Balance 240 ml Intake Oral 840 ml Output Urine Total 600 ml # Voids 1 7 # Bowel Movements 2 Laboratory Tests 05/02/18 05:50: White Blood Count 6.0, Red Blood Count 3.52L, Hemoglobin 11.8L, Hematocrit 34.3L , Mean Corpuscular Volume 97, Mean Corpuscular Hemoglobin 33.5H, Mean Corpuscular Hemoglobin Concent 34.4, Red Cell Distribution Width 12.2, Platelet Count 74L, Mean Platelet Volume 8.1, Neutrophils (%) (Auto) , Lymphocytes (%) ( Auto) , Monocytes (%) (Auto) , Eosinophils (%) (Auto) , Basophils (%) (Auto) , Differential Total Cells Counted 100, Neutrophils % (Manual) 64, Lymphocytes % ( Manual) 20, Monocytes % (Manual) 9, Eosinophils % (Manual) 7H, Basophils % ( Manual) 0, Band Neutrophils 0, Platelet Estimate DecreasedL, Platelet Morphology Normal, Hypochromasia 1+, Anisocytosis 1+, Prothrombin Time 12.0H, Prothromb Time International Ratio 1.1, Activated Partial Thromboplast Time 29, Sodium Level 141, Potassium Level 3.6, Chloride Level 108H, Carbon Dioxide Level 26, Anion Gap 8, Blood Urea Nitrogen 15, Creatinine 0.7, Estimat Glomerular Filtration Rate > 60, Glucose Level 95, Calcium Level 8.9, Phosphorus Level 3.7, Magnesium Level 1.9, Total Bilirubin 3.3H, Direct Bilirubin 1.0H, Aspartate Amino Transf (AST/SGOT) 100H, Alanine Aminotransferase (ALT/SGPT) 28, Alkaline Phosphatase 237H, Total Protein 5.9L, Albumin 2.5L, Globulin 3.4, Albumin/Globulin Ratio 0.7L, [id number] [ Pending], Ceruloplasmin [Pending], Immunoglobulin G [Pending], Immunoglobulin G1 [Pending], Immunoglobulin G2 [Pending], Immunoglobulin G3 [Pending], Immunoglobulin G4 [Pending], Anti-Nuclear Antibody Screen [Pending], F-Actin IgG Antibody [Pending] Height (Feet): 6 Height (Inches): 3.00 Weight (Pounds): 282 General Appearance: no apparent distress, alert Neurologic: oriented x 3, responsive, depressed affect Patel Garcia MD May 02, 2018 20:06
[2018-05-02] MEDS: LORazepam Inj 2mg/ml 1ml IV PRN (22:02)
[2018-05-03] VITALS: BP 130/60
[2018-05-03 04:00] VITALS: BP 122/68
[2018-05-03 07:06] LABS: INR 1.1 (0.9-1.1)
[2018-05-03 07:16] LABS: HEMATOCRIT 35.3 % (42.0-52.0); HEMOGLOBIN 12.4 G/DL (14.2-18.0); MEAN CORPUSCULAR VOLUME 97 FL (80-99); PLATELET COUNT 67 K/UL (150-450); RED BLOOD COUNT 3.63 M/UL (4.70-6.10); RED CELL DISTRIBUTION WIDTH 12.1 % (11.6-14.8); WHITE BLOOD COUNT 6.1 K/UL (4.8-10.8)
[2018-05-03 07:52] LABS: ALANINE AMINOTRANSFERASE 25 U/L (12-78); ALBUMIN 2.5 G/DL (3.4-5.0); ALBUMIN/GLOBULIN RATIO 0.7 (1.0-2.7); ALKALINE PHOSPHATASE 214 U/L (46-116); ASPARTATE AMINO TRANSFERASE 93 U/L (15-37); BILIRUBIN,TOTAL 3.5 MG/DL (0.2-1.0); BLOOD UREA NITROGEN 14 mg/dL (7-18); CALCIUM 9.1 MG/DL (8.5-10.1); CHLORIDE 108 MMOL/L (98-107); CREATININE 0.9 MG/DL (0.55-1.30); SODIUM 141 MMOL/L (136-145)
[2018-05-03 08:00] VITALS: BP 128/71
[2018-05-03 08:30] LABS: PHOSPHORUS 4.1 MG/DL (2.5-4.9)
[2018-05-03 08:32] LABS: BILIRUBIN,DIRECT 0.8 MG/DL (0.0-0.3)
[2018-05-03] MEDS: valACYclovir HCL 500mg tab ORAL SCH (08:43)
[2018-05-03] MEDS: Metoprolol 25mg tab ORAL SCH (08:44)
[2018-05-03] MEDS: LORazepam Inj 2mg/ml 1ml IV PRN (08:44)
[2018-05-03] MEDS: Lactulose 10gm/15ml UDC ORAL SCH ×2 (08:44→13:00)
[2018-05-03 10:02] LABS: CARBON DIOXIDE 26 MMOL/L (21-32)
--- NOTE | 2018-05-03 10:46 | General Progress Note ---
Assessment/Plan Status: stable, progressing Assessment/Plan Encephalopathy due to G[facility] -Seroquel prn -Provided ro/st Subjective Date patient seen: May 03, 2018 Neurologic/Psychiatric: Reports: anxiety Allergies: Coded Allergies: No Known Allergies (Unverified , 04/26/18) Subjective the pt got ativan this am he was anxious. the pt is manageable Objective Last 24 Hour Vital Signs Date Time Temp Pulse Resp B/P (MAP) Pulse Ox O2 Delivery O2 Flow Rate FiO2 05/03/18 09:00 Room Air 05/03/18 08:44 85 128/71 05/03/18 08:00 97.9 85 20 128/71 (90) 96 97.9 05/03/18 04:00 98.1 75 20 122/68 (86) 96 98.1 05/03/18 00:00 97.5 74 18 130/60 (83) 96 97.5 05/02/18 21:00 Room Air 05/02/18 20:24 85 125/70 05/02/18 20:00 97.5 85 20 125/70 (88) 95 97.5 05/02/18 19:53 78 20 Room Air 21 05/02/18 16:00 98.0 78 20 124/68 (86) 98 98.0 05/02/18 12:00 97.8 78 20 123/78 (93) 98 97.8 05/02/18 11:29 208.8 72 18 100 05/02/18 11:28 208.8 72 18 100 05/02/18 10:53 98.2 69 18 110/56 98 Room Air 98.2 Intake and Output 05/02/18 05/03/18 19:00 07:00 Intake Total 650 ml 250 ml Output Total 500 ml Balance 150 ml 250 ml Intake Oral 450 ml 250 ml IV Total 200 ml Output Urine Total 500 ml # Voids 7 10 Laboratory Tests 05/03/18 06:25: White Blood Count 6.1, Red Blood Count 3.63L, Hemoglobin 12.4L, Hematocrit 35.3L , Mean Corpuscular Volume 97, Mean Corpuscular Hemoglobin 34.1H, Mean Corpuscular Hemoglobin Concent 35.0, Red Cell Distribution Width 12.1, Platelet Count 67L, Mean Platelet Volume 8.6, Neutrophils (%) (Auto) , Lymphocytes (%) ( Auto) , Monocytes (%) (Auto) , Eosinophils (%) (Auto) , Basophils (%) (Auto) , Differential Total Cells Counted 100, Neutrophils % (Manual) 67, Lymphocytes % ( Manual) 18L, Monocytes % (Manual) 9, Eosinophils % (Manual) 6H, Basophils % ( Manual) 0, Band Neutrophils 0, Platelet Estimate DecreasedL, Platelet Morphology Normal, Red Blood Cell Morphology Normal, Prothrombin Time 12.0H, Prothromb Time International Ratio 1.1, Activated Partial Thromboplast Time 30, Sodium Level 141, Potassium Level 4.0, Chloride Level 108H, Carbon Dioxide Level 26, Blood Urea Nitrogen 14, Creatinine 0.9, Estimat Glomerular Filtration Rate > 60, Glucose Level 92, Calcium Level 9.1, Phosphorus Level 4.1, Magnesium Level 1.9, Total Bilirubin 3.5H, Direct Bilirubin 0.8H, Aspartate Amino Transf ( AST/SGOT) 93H, Alanine Aminotransferase (ALT/SGPT) 25, Alkaline Phosphatase 214H , Total Protein 5.9L, Albumin 2.5L, Globulin 3.4, Albumin/Globulin Ratio 0.7L, Helicobacter pylori IgG Antibody [Pending] Height (Feet): 6 Height (Inches): 3.00 Weight (Pounds): 282 General Appearance: no apparent distress, alert Neurologic: depressed affect Patel Garcia MD May 03, 2018 10:46
--- NOTE | 2018-05-03 10:53 | Cardiac Electrophysiology PN ---
Assessment/Plan Assessment/Plan 1. Troponin elevation. Levels are flat 0.502, 0.507 and 0.5. The patient does not have any chest pain and EKG does not show any ischemic changes. Continue metoprolol 25 mg b.i.d. Echocardiogram showed Nl EF 2. Hypertension, on metoprolol 25 mg b.i.d. 3. First-degree AV block without any syncope. 4. Metastatic melanoma, left eye. S/P EGD by Dr Pena 5. agitation. FU Dr Radha PERALES RN and Dr Garcia Subjective Subjective Was agitated earlier and got sedation. Legs are less swollen Objective Last 24 Hour Vital Signs Date Time Temp Pulse Resp B/P (MAP) Pulse Ox O2 Delivery O2 Flow Rate FiO2 05/03/18 09:00 Room Air 05/03/18 08:44 85 128/71 05/03/18 08:00 97.9 85 20 128/71 (90) 96 97.9 05/03/18 04:00 98.1 75 20 122/68 (86) 96 98.1 05/03/18 00:00 97.5 74 18 130/60 (83) 96 97.5 05/02/18 21:00 Room Air 05/02/18 20:24 85 125/70 05/02/18 20:00 97.5 85 20 125/70 (88) 95 97.5 05/02/18 19:53 78 20 Room Air 21 05/02/18 16:00 98.0 78 20 124/68 (86) 98 98.0 05/02/18 12:00 97.8 78 20 123/78 (93) 98 97.8 05/02/18 11:29 208.8 72 18 100 05/02/18 11:28 208.8 72 18 100 05/02/18 10:53 98.2 69 18 110/56 98 Room Air 98.2 Intake and Output 05/02/18 05/03/18 19:00 07:00 Intake Total 650 ml 250 ml Output Total 500 ml Balance 150 ml 250 ml Intake Oral 450 ml 250 ml IV Total 200 ml Output Urine Total 500 ml # Voids 7 10 Laboratory Tests Test 05/03/18 06:25 White Blood Count 6.1 K/UL (4.8-10.8) Red Blood Count 3.63 M/UL (4.70-6.10) L Hemoglobin 12.4 G/DL (14.2-18.0) L Hematocrit 35.3 % (42.0-52.0) L Mean Corpuscular Volume 97 FL (80-99) Mean Corpuscular Hemoglobin 34.1 PG (27.0-31.0) H Mean Corpuscular Hemoglobin Concent 35.0 G/DL (32.0-36.0) Red Cell Distribution Width 12.1 % (11.6-14.8) Platelet Count 67 K/UL (150-450) L Mean Platelet Volume 8.6 FL (6.5-10.1) Neutrophils (%) (Auto) % (45.0-75.0) Lymphocytes (%) (Auto) % (20.0-45.0) Monocytes (%) (Auto) % (1.0-10.0) Eosinophils (%) (Auto) % (0.0-3.0) Basophils (%) (Auto) % (0.0-2.0) Differential Total Cells Counted 100 Neutrophils % (Manual) 67 % (45-75) Lymphocytes % (Manual) 18 % (20-45) L Monocytes % (Manual) 9 % (1-10) Eosinophils % (Manual) 6 % (0-3) H Basophils % (Manual) 0 % (0-2) Band Neutrophils 0 % (0-8) Platelet Estimate Decreased L Platelet Morphology Normal Red Blood Cell Morphology Normal Prothrombin Time 12.0 SEC (9.30-11.50) H Prothromb Time International Ratio 1.1 (0.9-1.1) Activated Partial Thromboplast Time 30 SEC (23-33) Sodium Level 141 MMOL/L (136-145) Potassium Level 4.0 MMOL/L (3.5-5.1) Chloride Level 108 MMOL/L (98-107) H Carbon Dioxide Level 26 MMOL/L (21-32) Blood Urea Nitrogen 14 mg/dL (7-18) Creatinine 0.9 MG/DL (0.55-1.30) Estimat Glomerular Filtration Rate > 60 mL/min (>60) Glucose Level 92 MG/DL (74-106) Calcium Level 9.1 MG/DL (8.5-10.1) Phosphorus Level 4.1 MG/DL (2.5-4.9) Magnesium Level 1.9 MG/DL (1.5-2.4) Total Bilirubin 3.5 MG/DL (0.2-1.0) H Direct Bilirubin 0.8 MG/DL (0.0-0.3) H Aspartate Amino Transf (AST/SGOT) 93 U/L (15-37) H Alanine Aminotransferase (ALT/SGPT) 25 U/L (12-78) Alkaline Phosphatase 214 U/L (46-116) H Total Protein 5.9 G/DL (6.4-8.2) L Albumin 2.5 G/DL (3.4-5.0) L Globulin 3.4 g/dL Albumin/Globulin Ratio 0.7 (1.0-2.7) L Helicobacter pylori IgG Antibody Pending Objective HEAD AND NECK: No JVD. LUNGS: Clear. CARDIOVASCULAR: Regular S1 and S2 with no gallop. ABDOMEN: Distended. EXTREMITIES: There is 2+ pitting edema. Jaison Zuñiga MD May 03, 2018 10:52
--- NOTE | 2018-05-03 11:00 | General Progress Note ---
Assessment/Plan Assessment/Plan ASSESSMENT AND RECOMMENDATIONS: 1. Metastatic ocular melanoma. At this time is in remission per the patient. is s/p microwaev ablation. GI service consulted and CT scan of the abdom/pelvis/ chest shows potential mass in pylorus/stomach --> needs outpatient onc followup, wants to go to [facility] Dr. Garcia and Dr. Wick --> In addition, imaging showed Suspicion of cirrhosis/chronic liver disease. Stigmata of portal hypertension demonstrated including splenomegaly and probable recanalization of the umbilical vein --> CT abdomen reviewed, questionable mass in gastric output area --> SEEN BY GI and egd shows esophageal varcies stage II/III, gastric ulcer 2. Thrombocytopenia, likely secondary to underlying liver disease. Closely monitor for improvement. Hepatitis panel is negative --> hiv and hepatitis is negative --> no bleeding that is noted 3. Anemia due to underlying chronic disease. Continue to closely monitor. Anemia panel has been reviewed, has anemia due to underlying chronic disease. --> panel has been reviewed 4. Coagulopathy, likely secondary to disease of the liver --> vit K prn basis sq 5. Hypoproteinemia, protein/calornic malnutrition. Further monitor for improvement, may need Ensure and increased p.o. intake. ==> recommend nutrition eval followup 6. Hypokalemia. Replete potassium. 7. Hyperbilirubinemia as per Gi management --> ratio of uncong/claribel appears same Subjective Constitutional: Denies: no symptoms, chills, diaphoresis, fever, malaise, weakness, other HEENT: Denies: no symptoms, eye pain, blurred vision, tearing, double vision, ear pain, ear discharge, nose pain, nose congestion, throat pain, throat swelling, mouth pain, mouth swelling, other Cardiovascular: Denies: no symptoms, chest pain, edema, irregular heart rate, lightheadedness, palpitations, syncope, other Respiratory: Denies: no symptoms, cough, orthopnea, shortness of breath, SOB with excertion, SOB at rest, sputum, stridor, wheezing, other Gastrointestinal/Abdominal: Denies: no symptoms, abdomen distended, abdominal pain, black stools, tarry stools, blood in stool, constipated, diarrhea, difficulty swallowing, nausea, poor appetite, poor fluid intake, rectal bleeding , vomiting, other Genitourinary: Denies: no symptoms, burning, discharge, frequency, flank pain, hematuria, incontinence, pain, urgency, other Neurologic/Psychiatric: Denies: no symptoms, anxiety, depressed, emotional problems, headache, numbness, paresthesia, pre-existing deficit, seizure, tingling, tremors, weakness, other Hematologic/Lymphatic: Denies: no symptoms, anemia, easy bleeding, easy bruising, other Allergies: Coded Allergies: No Known Allergies (Unverified , 04/26/18) Subjective no fevers or chills, no sweats, encephalopathic Objective Last 24 Hour Vital Signs Date Time Temp Pulse Resp B/P (MAP) Pulse Ox O2 Delivery O2 Flow Rate FiO2 05/03/18 09:00 Room Air 05/03/18 08:44 85 128/71 05/03/18 08:00 97.9 85 20 128/71 (90) 96 97.9 05/03/18 04:00 98.1 75 20 122/68 (86) 96 98.1 05/03/18 00:00 97.5 74 18 130/60 (83) 96 97.5 05/02/18 21:00 Room Air 05/02/18 20:24 85 125/70 05/02/18 20:00 97.5 85 20 125/70 (88) 95 97.5 05/02/18 19:53 78 20 Room Air 21 05/02/18 16:00 98.0 78 20 124/68 (86) 98 98.0 05/02/18 12:00 97.8 78 20 123/78 (93) 98 97.8 05/02/18 11:29 208.8 72 18 100 05/02/18 11:28 208.8 72 18 100 Intake and Output 05/02/18 05/03/18 19:00 07:00 Intake Total 650 ml 250 ml Output Total 500 ml Balance 150 ml 250 ml Intake Oral 450 ml 250 ml IV Total 200 ml Output Urine Total 500 ml # Voids 7 10 Laboratory Tests 05/03/18 06:25: White Blood Count 6.1, Red Blood Count 3.63L, Hemoglobin 12.4L, Hematocrit 35.3L , Mean Corpuscular Volume 97, Mean Corpuscular Hemoglobin 34.1H, Mean Corpuscular Hemoglobin Concent 35.0, Red Cell Distribution Width 12.1, Platelet Count 67L, Mean Platelet Volume 8.6, Neutrophils (%) (Auto) , Lymphocytes (%) ( Auto) , Monocytes (%) (Auto) , Eosinophils (%) (Auto) , Basophils (%) (Auto) , Differential Total Cells Counted 100, Neutrophils % (Manual) 67, Lymphocytes % ( Manual) 18L, Monocytes % (Manual) 9, Eosinophils % (Manual) 6H, Basophils % ( Manual) 0, Band Neutrophils 0, Platelet Estimate DecreasedL, Platelet Morphology Normal, Red Blood Cell Morphology Normal, Prothrombin Time 12.0H, Prothromb Time International Ratio 1.1, Activated Partial Thromboplast Time 30, Sodium Level 141, Potassium Level 4.0, Chloride Level 108H, Carbon Dioxide Level 26, Blood Urea Nitrogen 14, Creatinine 0.9, Estimat Glomerular Filtration Rate > 60, Glucose Level 92, Calcium Level 9.1, Phosphorus Level 4.1, Magnesium Level 1.9, Total Bilirubin 3.5H, Direct Bilirubin 0.8H, Aspartate Amino Transf ( AST/SGOT) 93H, Alanine Aminotransferase (ALT/SGPT) 25, Alkaline Phosphatase 214H , Total Protein 5.9L, Albumin 2.5L, Globulin 3.4, Albumin/Globulin Ratio 0.7L, Helicobacter pylori IgG Antibody [Pending] Height (Feet): 6 Height (Inches): 3.00 Weight (Pounds): 282 General Appearance: no apparent distress EENT: TMs normal Neck: normal alignment Cardiovascular: regular rhythm Respiratory/Chest: normal breath sounds Abdomen: non tender Extremities: non-tender Edema: 1+ Leg (L), 1+ Leg (R) Neurologic: alert Skin: warm/dry Tyler Wagner MD May 03, 2018 11:00
--- NOTE | 2018-05-03 11:38 | GI Progress Note ---
Assessment/Plan Problems: (1) Metastatic melanoma ICD Codes: C79.9 - Secondary malignant neoplasm of unspecified site SNOMED: 243349174 (2) Liver disease ICD Codes: K76.9 - Liver disease, unspecified SNOMED: 883676310 (3) Hyperbilirubinemia ICD Codes: E80.6 - Other disorders of bilirubin metabolism SNOMED: 55686232 (4) Altered mental status ICD Codes: R41.82 - Altered mental status, unspecified SNOMED: 099080457 Qualifiers: Qualified Codes: R40.3 - Persistent vegetative state Status: stable Status Narrative Discussed with Dr. Pena. Assessment/Plan 5 cm cyst right kidney. OB stool positive >> stable H&H prajapati CT noted. cirrhosis CEA, AFP >> WNL s/p EGD SUMMARY OF FINDINGS: 1. Esophageal varices. 2. Small hiatal hernia. 3. Portal hypertensive gastropathy. 4. Duodenal ulceration. RECOMMENDATIONS: BP management for portal HTN low sodium diet low dose lactulose, cont Xifaxan monitor H&H, prn transfusions bowel regime ppi fu labs, MARK ANTHONY, AMA, SMA, Anti-trypsin, IgG, Ceruloplasmin, H. Pylori serology outpatient follow up dc planning The patient was seen and examined at bedside and all new and available data was reviewed in the patients chart. I agree with the above findings, impression and plan. (Patient seen earlier today. Signature stamp does not reflect patient encounter time.). - Sanjeev Pena MD Subjective Subjective has pectoral pain from trying to get out of bed Objective Last 24 Hour Vital Signs Date Time Temp Pulse Resp B/P (MAP) Pulse Ox O2 Delivery O2 Flow Rate FiO2 05/03/18 09:00 Room Air 05/03/18 08:44 85 128/71 05/03/18 08:00 97.9 85 20 128/71 (90) 96 97.9 05/03/18 04:00 98.1 75 20 122/68 (86) 96 98.1 05/03/18 00:00 97.5 74 18 130/60 (83) 96 97.5 05/02/18 21:00 Room Air 05/02/18 20:24 85 125/70 05/02/18 20:00 97.5 85 20 125/70 (88) 95 97.5 05/02/18 19:53 78 20 Room Air 21 05/02/18 16:00 98.0 78 20 124/68 (86) 98 98.0 05/02/18 12:00 97.8 78 20 123/78 (93) 98 97.8 Intake and Output 05/02/18 05/03/18 19:00 07:00 Intake Total 650 ml 250 ml Output Total 500 ml Balance 150 ml 250 ml Intake Oral 450 ml 250 ml IV Total 200 ml Output Urine Total 500 ml # Voids 7 10 Laboratory Tests Test 05/03/18 06:25 White Blood Count 6.1 K/UL (4.8-10.8) Red Blood Count 3.63 M/UL (4.70-6.10) L Hemoglobin 12.4 G/DL (14.2-18.0) L Hematocrit 35.3 % (42.0-52.0) L Mean Corpuscular Volume 97 FL (80-99) Mean Corpuscular Hemoglobin 34.1 PG (27.0-31.0) H Mean Corpuscular Hemoglobin Concent 35.0 G/DL (32.0-36.0) Red Cell Distribution Width 12.1 % (11.6-14.8) Platelet Count 67 K/UL (150-450) L Mean Platelet Volume 8.6 FL (6.5-10.1) Neutrophils (%) (Auto) % (45.0-75.0) Lymphocytes (%) (Auto) % (20.0-45.0) Monocytes (%) (Auto) % (1.0-10.0) Eosinophils (%) (Auto) % (0.0-3.0) Basophils (%) (Auto) % (0.0-2.0) Differential Total Cells Counted 100 Neutrophils % (Manual) 67 % (45-75) Lymphocytes % (Manual) 18 % (20-45) L Monocytes % (Manual) 9 % (1-10) Eosinophils % (Manual) 6 % (0-3) H Basophils % (Manual) 0 % (0-2) Band Neutrophils 0 % (0-8) Platelet Estimate Decreased L Platelet Morphology Normal Red Blood Cell Morphology Normal Prothrombin Time 12.0 SEC (9.30-11.50) H Prothromb Time International Ratio 1.1 (0.9-1.1) Activated Partial Thromboplast Time 30 SEC (23-33) Sodium Level 141 MMOL/L (136-145) Potassium Level 4.0 MMOL/L (3.5-5.1) Chloride Level 108 MMOL/L (98-107) H Carbon Dioxide Level 26 MMOL/L (21-32) Blood Urea Nitrogen 14 mg/dL (7-18) Creatinine 0.9 MG/DL (0.55-1.30) Estimat Glomerular Filtration Rate > 60 mL/min (>60) Glucose Level 92 MG/DL (74-106) Calcium Level 9.1 MG/DL (8.5-10.1) Phosphorus Level 4.1 MG/DL (2.5-4.9) Magnesium Level 1.9 MG/DL (1.5-2.4) Total Bilirubin 3.5 MG/DL (0.2-1.0) H Direct Bilirubin 0.8 MG/DL (0.0-0.3) H Aspartate Amino Transf (AST/SGOT) 93 U/L (15-37) H Alanine Aminotransferase (ALT/SGPT) 25 U/L (12-78) Alkaline Phosphatase 214 U/L (46-116) H Total Protein 5.9 G/DL (6.4-8.2) L Albumin 2.5 G/DL (3.4-5.0) L Globulin 3.4 g/dL Albumin/Globulin Ratio 0.7 (1.0-2.7) L Helicobacter pylori IgG Antibody Pending Height (Feet): 6 Height (Inches): 3.00 Weight (Pounds): 282 General Appearance: WD/WN, no apparent distress, alert Cardiovascular: normal rate Respiratory/Chest: normal breath sounds, no respiratory distress Abdominal Exam: normal bowel sounds, non tender, soft Extremities: normal range of motion, non-tender Lali Gaytan NP May 03, 2018 11:38
[2018-05-03 12:00] VITALS: BP 117/71
[2018-05-03] MEDS ORDERED: SEROQUEL25 MG ORAL (13:03)
[2018-05-03] MEDS ORDERED: XIFAXAN550 MG ORAL (13:03)
--- NOTE | 2018-05-03 13:06 | Pulmonology Progress Note ---
Assessment/Plan Problems: (1) Hepatic encephalopathy (2) Altered mental status (3) Metastatic melanoma (4) Liver disease (5) Hyperbilirubinemia Assessment/Plan ALL NOTED GI note appreciated, iv fluids EGD RESULTS NOTED paracentesis not done, not enough fluids f/u ammonia levels, still elevated dc to [facility] Subjective Constitutional: Reports: no symptoms HEENT: Repors: no symptoms Respiratory: Reports: no symptoms Allergies: Coded Allergies: No Known Allergies (Unverified , 04/26/18) Objective Last 24 Hour Vital Signs Date Time Temp Pulse Resp B/P (MAP) Pulse Ox O2 Delivery O2 Flow Rate FiO2 05/03/18 12:00 97.3 67 20 117/71 (86) 96 97.3 05/03/18 09:00 Room Air 05/03/18 08:44 85 128/71 05/03/18 08:00 97.9 85 20 128/71 (90) 96 97.9 05/03/18 04:00 98.1 75 20 122/68 (86) 96 98.1 05/03/18 00:00 97.5 74 18 130/60 (83) 96 97.5 05/02/18 21:00 Room Air 05/02/18 20:24 85 125/70 05/02/18 20:00 97.5 85 20 125/70 (88) 95 97.5 05/02/18 19:53 78 20 Room Air 21 05/02/18 16:00 98.0 78 20 124/68 (86) 98 98.0 Intake and Output 05/02/18 05/03/18 19:00 07:00 Intake Total 650 ml 250 ml Output Total 500 ml Balance 150 ml 250 ml Intake Oral 450 ml 250 ml IV Total 200 ml Output Urine Total 500 ml # Voids 7 10 General Appearance: WD/WN HEENT: normocephalic, atraumatic Respiratory/Chest: chest wall non-tender, lungs clear Cardiovascular: normal rate Abdomen: normal bowel sounds, non distended Genitourinary: normal external genitalia Skin: no rash, no lesions Laboratory Tests 05/03/18 06:25: White Blood Count 6.1, Red Blood Count 3.63L, Hemoglobin 12.4L, Hematocrit 35.3L , Mean Corpuscular Volume 97, Mean Corpuscular Hemoglobin 34.1H, Mean Corpuscular Hemoglobin Concent 35.0, Red Cell Distribution Width 12.1, Platelet Count 67L, Mean Platelet Volume 8.6, Neutrophils (%) (Auto) , Lymphocytes (%) ( Auto) , Monocytes (%) (Auto) , Eosinophils (%) (Auto) , Basophils (%) (Auto) , Differential Total Cells Counted 100, Neutrophils % (Manual) 67, Lymphocytes % ( Manual) 18L, Monocytes % (Manual) 9, Eosinophils % (Manual) 6H, Basophils % ( Manual) 0, Band Neutrophils 0, Platelet Estimate DecreasedL, Platelet Morphology Normal, Red Blood Cell Morphology Normal, Prothrombin Time 12.0H, Prothromb Time International Ratio 1.1, Activated Partial Thromboplast Time 30, Sodium Level 141, Potassium Level 4.0, Chloride Level 108H, Carbon Dioxide Level 26, Blood Urea Nitrogen 14, Creatinine 0.9, Estimat Glomerular Filtration Rate > 60, Glucose Level 92, Calcium Level 9.1, Phosphorus Level 4.1, Magnesium Level 1.9, Total Bilirubin 3.5H, Direct Bilirubin 0.8H, Aspartate Amino Transf ( AST/SGOT) 93H, Alanine Aminotransferase (ALT/SGPT) 25, Alkaline Phosphatase 214H , Total Protein 5.9L, Albumin 2.5L, Globulin 3.4, Albumin/Globulin Ratio 0.7L, Helicobacter pylori IgG Antibody [Pending] Current Medications Medications (Trade) Dose Ordered Sig/Elsy Route PRN Reason Start Time Stop Time Status Last Admin Dose Admin Al Hydroxide/Mg Hydroxide (Mylanta II) 30 ml Q6H PRN ORAL dyspepsia 04/27/18 13:45 05/26/18 13:44 Benzonatate (Tessalon Perles) 200 mg THREE TIMES A DAY PRN ORAL For Cough 04/27/18 16:45 05/27/18 16:44 Dextrose (Dextrose 50%) 25 ml PRN IV hypoglycemia 04/27/18 13:45 05/26/18 13:59 Dextrose (Dextrose 50%) 50 ml PRN IV hypoglycemia 04/27/18 13:45 05/26/18 13:59 Diphenhydramine HCl (Benadryl) 25 mg Q6H PRN ORAL Itching/Pruritis 04/27/18 13:45 05/26/18 13:44 Lactulose (Cephulac) 10 gm THREE TIMES A DAY ORAL 04/27/18 18:00 05/26/18 17:59 Lorazepam (Ativan 2mg/ml 1ml) 1 mg Q4H PRN IV agitation 04/27/18 13:45 05/03/18 13:44 05/03/18 08:44 Metoprolol Tartrate (Lopressor) 25 mg Q12HR ORAL 04/27/18 21:00 05/27/18 20:59 05/03/18 08:44 Morphine Sulfate (Morphine Sulfate) 2 mg Q4H PRN IVP Severe Pain (Pain Scale 7-10) 04/27/18 13:45 05/03/18 13:44 Nitroglycerin (Ntg) 0.4 mg Q5M X 3 DOSES PRN SL Prn Chest Pain 04/27/18 13:45 05/26/18 13:44 Ondansetron HCl (Zofran) 4 mg Q6H PRN IVP Nausea & Vomiting 04/27/18 13:45 05/26/18 13:44 Oxymetazoline HCl (Afrin Nasal Pyatt) 2 spray TWICE A DAY PRN NASAL nasal congestion 04/28/18 10:15 05/27/18 17:59 Pantoprazole (Protonix) 40 mg DAILY ORAL 04/29/18 09:00 05/29/18 08:59 05/03/18 08:44 Polyethylene Glycol (Miralax) 17 gm HSPRN PRN ORAL Constipation 04/27/18 21:00 05/26/18 20:59 Quetiapine Fumarate (SEROquel) 25 mg EVERY 6 HOURS PRN ORAL For Anxiety 04/27/18 18:00 05/27/18 13:29 Rifaximin (Xifaxan) 550 mg EVERY 12 HOURS ORAL 04/27/18 21:00 05/03/18 20:59 05/03/18 08:44 Temazepam (Restoril) 15 mg HSPRN PRN ORAL Insomnia 04/27/18 21:00 05/03/18 20:59 04/29/18 00:00 Tramadol HCl (Ultram) 50 mg Q8H PRN ORAL For Pain 04/27/18 16:45 05/04/18 16:44 05/03/18 11:50 Valacyclovir HCl (Valtrex) 500 mg TWICE A DAY ORAL 04/27/18 18:00 05/27/18 17:59 05/03/18 08:43 Mira Coates MD May 03, 2018 13:06
--- NOTE | 2018-05-03 16:52 | Internal Med Progress Note ---
Subjective Date of Service: May 03, 2018 Physician Name Carlos Alberto Madrigal Attending Physician Josh Schmitz MD Allergies: Coded Allergies: No Known Allergies (Unverified , 04/26/18) ROS Limited/Unobtainable: No Constitutional: Reports: no symptoms HEENT: Reports: no symptoms Cardiovascular: Reports: no symptoms Respiratory: Reports: no symptoms Gastrointestinal/Abdominal: Reports: no symptoms Genitourinary: Reports: no symptoms Neurologic/Psychiatric: Reports: no symptoms Subjective 67 YO M admitted with altered mental status. Now hepatic encephalopathy. Cover for Int Med-Dr Schmitz Less confused today. C/O back pain. S/P endoscopy 05/02/18 Objective Last Vital Signs Date Time Temp Pulse Resp B/P (MAP) Pulse Ox O2 Delivery O2 Flow Rate FiO2 05/03/18 12:00 97.3 67 20 117/71 (86) 96 97.3 05/03/18 09:00 Room Air 05/03/18 08:01 21 05/02/18 10:41 2 Laboratory Tests Test 05/03/18 06:25 White Blood Count 6.1 K/UL (4.8-10.8) Red Blood Count 3.63 M/UL (4.70-6.10) L Hemoglobin 12.4 G/DL (14.2-18.0) L Hematocrit 35.3 % (42.0-52.0) L Mean Corpuscular Volume 97 FL (80-99) Mean Corpuscular Hemoglobin 34.1 PG (27.0-31.0) H Mean Corpuscular Hemoglobin Concent 35.0 G/DL (32.0-36.0) Red Cell Distribution Width 12.1 % (11.6-14.8) Platelet Count 67 K/UL (150-450) L Mean Platelet Volume 8.6 FL (6.5-10.1) Neutrophils (%) (Auto) % (45.0-75.0) Lymphocytes (%) (Auto) % (20.0-45.0) Monocytes (%) (Auto) % (1.0-10.0) Eosinophils (%) (Auto) % (0.0-3.0) Basophils (%) (Auto) % (0.0-2.0) Differential Total Cells Counted 100 Neutrophils % (Manual) 67 % (45-75) Lymphocytes % (Manual) 18 % (20-45) L Monocytes % (Manual) 9 % (1-10) Eosinophils % (Manual) 6 % (0-3) H Basophils % (Manual) 0 % (0-2) Band Neutrophils 0 % (0-8) Platelet Estimate Decreased L Platelet Morphology Normal Red Blood Cell Morphology Normal Prothrombin Time 12.0 SEC (9.30-11.50) H Prothromb Time International Ratio 1.1 (0.9-1.1) Activated Partial Thromboplast Time 30 SEC (23-33) Sodium Level 141 MMOL/L (136-145) Potassium Level 4.0 MMOL/L (3.5-5.1) Chloride Level 108 MMOL/L (98-107) H Carbon Dioxide Level 26 MMOL/L (21-32) Blood Urea Nitrogen 14 mg/dL (7-18) Creatinine 0.9 MG/DL (0.55-1.30) Estimat Glomerular Filtration Rate > 60 mL/min (>60) Glucose Level 92 MG/DL (74-106) Calcium Level 9.1 MG/DL (8.5-10.1) Phosphorus Level 4.1 MG/DL (2.5-4.9) Magnesium Level 1.9 MG/DL (1.5-2.4) Total Bilirubin 3.5 MG/DL (0.2-1.0) H Direct Bilirubin 0.8 MG/DL (0.0-0.3) H Aspartate Amino Transf (AST/SGOT) 93 U/L (15-37) H Alanine Aminotransferase (ALT/SGPT) 25 U/L (12-78) Alkaline Phosphatase 214 U/L (46-116) H Total Protein 5.9 G/DL (6.4-8.2) L Albumin 2.5 G/DL (3.4-5.0) L Globulin 3.4 g/dL Albumin/Globulin Ratio 0.7 (1.0-2.7) L Helicobacter pylori IgG Antibody Pending Intake and Output 05/02/18 05/03/18 19:00 07:00 Intake Total 650 ml 250 ml Output Total 500 ml Balance 150 ml 250 ml Intake Oral 450 ml 250 ml IV Total 200 ml Output Urine Total 500 ml # Voids 7 10 Objective General Appearance: WD/WN, no apparent distress, alert EENT: PERRL/EOMI, normal ENT inspection, TMs normal Neck: non-tender, normal alignment, supple, normal inspection Cardiovascular: normal peripheral pulses, normal rate, regular rhythm, no gallop/murmur, no JVD Respiratory/Chest: chest wall non-tender, lungs clear, normal breath sounds, no respiratory distress, no accessory muscle use Abdomen: normal bowel sounds, non tender, soft, no organomegaly, no mass Extremities: normal range of motion, non-tender Edema: trace edema Neurologic: upper leather sorter II-XII grossly normal, no motor/sensory deficits Skin: normal pigmentation, warm/dry Assessment/Plan Problem List: (1) History of melanoma Assessment & Plan: left eye; in remission-see onc note (2) Gastric mass Assessment & Plan: See CT abdomen. S/P endoscopy 05/02/18 (3) Sludge in gallbladder (4) Pancreatitis (5) Hepatic encephalopathy Assessment & Plan: CT abdomen =No Masses. Resolving-see GI note (6) Altered mental status Assessment & Plan: Hepatic encephalopathy. Improving (7) Lumbar vertebral fracture Assessment & Plan: Await MRI (8) Elevated troponin Assessment & Plan: see cardiology note (9) Idiopathic esophageal varices without bleeding Assessment & Plan: S/P endoscopy 05/02/18. See GI note Assessment/Plan Discharge to [facility] Carlos Alberto Rangel MD May 03, 2018 16:52
--- NOTE | 2018-05-04 13:13 | Discharge Summary ---
Discharge Summary Discharge Summary _ DATE OF ADMISSION: 04/26/2018 DATE OF DISCHARGE: 05/03/2018 CONSULTANTS: Dr. Sanjeev Zuñiga BRIEF HOSPITAL COURSE: Patient is a 67-year-old male, who presented with chief complaint of altered mental status. Patient was confused and unable to contribute to history and physical. Apparently patient traveled here from [place]. He had been undergoing chemotherapy for cancer. He apparently has history of metastatic liver disease and melanoma to the left eye. On evaluation at ED, CT of the brain was reported as no acute disease. Chest x- ray did not show any active disease. Troponin was 0.553. Alkaline phosphatase 215. Total CK 389. He was admitted for evaluation of altered mental status. He was given IV hydration. Abdominal ultrasound done showed hepatosplenomegaly with fatty liver. Ammonia level was elevated. Patient was continued on Xifaxan. He refused lactulose. CT of the abdomen and pelvis showed findings suspicious for acute pancreatitis, secondary duodenitis and moderate inflammation but no definite abscess. There was no definite metastatic neoplasm involving the liver, however suspicion of cirrhosis/chronic liver disease with stigmata of portal hypertension. There was a questionable mass involving the region of the pylorus/antrum of the stomach. Peptic ulcer disease , is consideration. On 04/29/2018, he underwent upper endoscopy with findings of esophageal varices , grade 2/3 without any stigmata. In the stomach there was portal hypertensive gastropathy. Biopsy was obtained. There were findings of duodenal ulceration. He was recommended to continue with beta scarlet. Pathology results showed chronic gastritis negative for H. pylori. 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 He was recommended need for outpatient oncology follow-up. Also recommended workup for questionable mass in the gastric area. He had elevated troponin levels. Troponins were monitored. Levels were flat. Patient did not have any chest pain and EKG did not show any ischemic changes. Echocardiogram showed normal function. He had compression fracture demonstrated on recent CT scan. MRI was done and was positive for acute or subacute L1 vertebral body burst/compression fracture. He was given PT and OT. HIV screen was negative. Hepatitis B was negative. Patient had stable hemoglobin levels. He was eventually discharged to SNF. FINAL DIAGNOSES: Altered mental status status/encephalopathy Chronic liver disease/cirrhosis with portal hypertension Hepatic Encephalopathy Elevated troponin probably troponin leak Melanoma in the left eye Gastric mass Pancreatitis Lumbar vertebral fracture Etiopathic esophageal varices without bleeding Small hiatal hernia Portal hypertensive gastropathy Duodenal herniation Hyperbilirubinemia Status post EGD with biopsy Thrombocytopenia Anemia secondary to underlying chronic disease Coagulopathy likely secondary to liver disease Hypoproteinemia with protein calorie malnutrition Hypokalemia DISPOSITION: Patient was transferred to [facility]. DISCHARGE MEDICATIONS: Refer to Discharge Medication List. I have been assigned to dictate discharge summary on this account, and I was not involved in the patient's management. Renetta Medellin NP May 04, 2018 13:13
== END 2018-05-03 16:49 | DRG 441 ==
LOC: EDBD 10:15 → EMR 10:46 → EDBEDREQ 12:15 → 2E 12:26 → EDBEDREQ 12:49 → 4E 04-27 13:35
PROC: 0DB78ZX Excision of Stomach, Pylorus, Via Natural or Artificial Opening Endoscopic, Diagnostic (ICD-10-PCS; principal; 2018-05-02 10:23)
DX: K72.90 Hepatic failure, unspecified without coma (principal); K85.90 Acute pancreatitis without necrosis or infection, unspecified; S32.011A Stable burst fracture of first lumbar vertebra, initial encounter for closed fracture; K76.6 Portal hypertension; I85.10 Secondary esophageal varices without bleeding; E46 Unspecified protein-calorie malnutrition; D68.4 Acquired coagulation factor deficiency; E87.6 Hypokalemia; Z85.840 Personal history of malignant neoplasm of eye; Z90.01 Acquired absence of eye; D69.59 Other secondary thrombocytopenia; Z79.899 Other long term (current) drug therapy; Z85.820 Personal history of malignant melanoma of skin; Z85.05 Personal history of malignant neoplasm of liver; K74.60 Unspecified cirrhosis of liver; R74.8 Abnormal levels of other serum enzymes; K31.89 Other diseases of stomach and duodenum; X58.XXXA Exposure to other specified factors, initial encounter; K44.9 Diaphragmatic hernia without obstruction or gangrene; D63.8 Anemia in other chronic diseases classified elsewhere; I44.0 Atrioventricular block, first degree; K26.9 Duodenal ulcer, unspecified as acute or chronic, without hemorrhage or perforation; K75.81 Nonalcoholic steatohepatitis (NASH); K82.8 Other specified diseases of gallbladder
CPT/HCPCS: 36415; 70450; 71045; 71260; 72158; 74177; 76700; 80048; 80053; 80076; 81001; 82103; 82105; 82140; 82150; 82248; 82270; 82378; 82390; 82550; 82607; 82728; 82746; 82784; 82787; 82977; 83540; 83550; 83690; 83735; 84100; 84439; 84443; 84484; 85007; 85025; 85044; 85610; 85730; 86039; 86235; 86677; 86703; 86705; 86709; 86803; 87340; 93005; 93306; 93970; 94003; 94150; 94664; A9585; J3430; J8499

== ENCOUNTER → 2018-06-08 | Outpatient (CLI) | payer MEDICARE, OTHER ==
[~2018-06-08] MED LIST: AFRIN NASAL SPR30 ML NASAL; BENZONATATE200 MG ORAL; FAMOTIDINE20 MG ORAL; METOPROLOL TART25 MG ORAL; NAPROXEN250 MG ORAL; NAPROXEN500 M2 ORAL; PRAVASTATIN SOD20 M1 ORAL; SEROQUEL25 MG ORAL; TRAMADOL HCL50 MG ORAL; VALACYCLOVIR500 MG ORAL; XIFAXAN550 MG ORAL
--- NOTE | 2018-06-08 16:48 | Diagnostic Imaging Report ---
Indication: Low back pain. Recent history of L1 compression fracture Technique: Sagittal T1 and T2 fast spin echo, sagittal STIR, axial T1 and T2 fast spin-echo images of the lumbar spine Comparison: 04/30/2018 Findings: Again demonstrated is a severe burst/compression fracture of the L1 vertebral body, with resultant vertebra plana deformity.This is nearly completely compressed centrally, less compressed laterally. The degree of marrow edema appears similar to the previous exam. Edema of the soft tissues to the right and anterolateral to the right appears unchanged. The amount of edema within the T12-L1 and L1-L2 discs appear unchanged. Again demonstrated is an approximate 7 mm of posterior retropulsion of the superior posterior wall, likewise unchanged. As previously, this results in moderate narrowing of the spinal canal at this level and may treat slightly into the left lateral recess. The remaining vertebral body heights are preserved. The remaining disc spaces are preserved. The remaining bony marrow signal is normal. No significant disc bulge or protrusion elsewhere, spinal stenosis, or neural foraminal stenosis. A right upper pole renal cyst is incidentally noted. Impression: L1 vertebral body burst/compression fracture, reported on 04/30/2018, unchanged since an, with some residual marrow edema. Resultant moderate spinal stenosis at the upper L1 level due to posterior retropulsion, likely unchanged. Possible small posterior osseous fragment impinging upon the left lateral recess, likewise unchanged. No new findings. Right upper pole renal cyst incidentally noted
== END | disposition home or self-care (01) ==
LOC: MRI 12:20
DX: M48.56XA Collapsed vertebra, not elsewhere classified, lumbar region, initial encounter for fracture (principal); M48.061 Spinal stenosis, lumbar region without neurogenic claudication; N28.1 Cyst of kidney, acquired
CPT/HCPCS: 72148